=== PATIENT | male | born 1950 | race Caucasian/White ===

== ENCOUNTER 2017-08-05 15:31 | Inpatient (IN) | payer OTHER ==
[2017-08-05] VITALS (7 sets, daily range): BP systolic 143–171; BP diastolic 77–107; PULSE 74–90; TEMP 36.7–37; O2SAT 91–96; Ht 172.7 cm; Wt 95.3 kg
[~2017-08-05] VITALS: Ht 172.7 cm; Wt 95.3 kg
[~2017-08-05 15:31] MED LIST: ALL180 PO; ASPI325T45 PO; CALC1CAP36 PO; CALCTAB76 PO; CRG25 PO; DILT1CAP15 PO; EPLE25TA3 PO; ISOS30TA13 PO; LPT10 PO; LSN40 PO; LSX40 PO; MAGN400T6 PO; MULT-506 PO; POLY335019 PO
[2017-08-05 17:20] LABS: BASO % 0.5 %; BASO ABS # 0.03 K/uL (0-0.2); EOS % 3.1 %; EOS ABS # 0.18 K/uL (0-0.5); HEMATOCRIT 23.7 % (42-52); HEMOGLOBIN 7.1 g/dL (14.0-18.0); IG# 0.01 K/uL (0.00-0.02); LYMPH % 14.4 %; LYMPH ABS # 0.84 K/uL (1.2-3.4); MEAN CELL VOLUME 90.1 fL (80-100); MEAN PLATELET VOLUME 9.9 fL (7.4-10.4); MONO % 7.2 %; MONO ABS # 0.42 K/uL (0.11-0.59); NEUT % 74.6 %; NEUT ABS # 4.34 K/uL (1.4-6.5); PLATELET COUNT 180 K/uL (130-400); RED CELL DISTRIBUTION WIDTH CV 17.6 % (11.5-14.5); RED CELL DISTRIBUTION WIDTH SD 57.7 fL (36.4-46.3); WHITE BLOOD COUNT 5.82 K/uL (4.8-10.8)
--- NOTE | 2017-08-05 17:27 | DIAGNOSTIC IMAGING REPORT ---
ABDOMEN 2 VIEWS CLINICAL HISTORY: 66 years-old Male presenting with abd distention eval for obstruction. TECHNIQUE: Single supine view of the abdomen was obtained. COMPARISON: 08/07/2010. FINDINGS: Nonobstructive bowel gas pattern. No gross pneumoperitoneum. Allowing for bowel gas and stool, punctate calcifications likely represents a right renal calculi. Degenerative changes of the spine. Lung bases clear. IMPRESSION: 1. No evidence of obstruction or gross free air. 2. Right nephrolithiasis. Electronically signed by: Kaleb Corona M.D. 08/05/2017 5:26 PM Dictated Date/Time: 08/05/2017 5:24 PM
--- NOTE | 2017-08-05 17:29 | DIAGNOSTIC IMAGING REPORT ---
CHEST 2 VIEWS ROUTINE CLINICAL HISTORY: 66 years-old Male presenting with cough eval for pna. TECHNIQUE: PA and lateral views of the chest were obtained. COMPARISON: 07/15/2011. FINDINGS: Atherosclerosis of aortic arch. Cardiac silhouette enlarged. Pulmonary vascular prominence. Vague perihilar linear opacities. No other focal opacity. No pleural effusion or pneumothorax. Degenerative changes of the thoracic spine. Upper abdomen normal. IMPRESSION: 1. Cardiomegaly with volume overload and congestive change. No collette pulmonary edema. No focal consolidation to suggest pneumonia. Electronically signed by: Kaleb Corona M.D. 08/05/2017 5:27 PM Dictated Date/Time: 08/05/2017 5:26 PM
[2017-08-05 17:36] LABS: ALBUMIN 3.4 gm/dl (3.4-5.0); ALT/SGPT 23 U/L (12-78); AST/SGOT 20 U/L (15-37); BLOOD UREA NITROGEN 28 mg/dl (7-18); CALCIUM 8.5 mg/dl (8.5-10.1); CARBON DIOXIDE 23 mmol/L (21-32); CREATININE 2.64 mg/dl (0.60-1.40); GLUCOSE 95 mg/dl (70-99); POTASSIUM 3.8 mmol/L (3.5-5.1); SODIUM 140 mmol/L (136-145)
[2017-08-05 17:39] LABS: INR 1.1 (0.9-1.1); PTT PATIENT 25.3 SECONDS (21.0-31.0)
[2017-08-05 17:40] LABS: ALKALINE PHOSPHATASE 83 U/L (45-117); TOTAL PROTEIN 7.4 gm/dl (6.4-8.2)
[2017-08-05] MEDS ORDERED: FINA5TAB PO (17:49)
[2017-08-05] MEDS ORDERED: FLUT0.15 NAE (17:49)
[2017-08-05] MEDS ORDERED: ISOS30TA3 PO (17:49)
[2017-08-05] MEDS ORDERED: ACETAMINOPHEN 325 MG TAB PO PRN (19:30)
[2017-08-05] MEDS ORDERED: NITROGLYCERIN 0.4 MG SL PER TAB CHARGE SL PRN (19:30)
[2017-08-05] MEDS ORDERED: MAGNESIUM HYDROXIDE SUSP 30 ML UDC PO PRN (19:30)
[2017-08-05] MEDS ORDERED: FEXOFENADINE HCL 180 MG TAB PO PRN (20:00)
--- NOTE | 2017-08-05 20:33 | History and Physical ---
History & Physical Date & Time of Service: Aug 05, 2017 at 20:00 Chief Complaint: Shortness Of Breath Primary Care Physician: Kianna Trujillo M.D. (MEDICAL) History of Present Illness Source: patient, clinic records, hospital records Pt is 66 y/o M with PMH chronic A. fib not on Coumadin, HTN, cardiomyopathy, CHF , pulmonary hypertension, CAD, dyslipidemia, CKD IV presented to ER referred for anemia. Hemoglobin 7. Patient reports shortness of breath for the past 3 weeks. Denies any worsening shortness of breath with exertion. Patient feels shortness of breath started 3 weeks ago when he noticed distention of his abdomen and was having some constipation. Patient reports followed up with PCP and took Miralax for 2 weeks and has since been having daily bowel movements that are soft and he reports that the abdominal distention and firmness has resolved. Denies any abdominal pain. Patient also complains of nonproductive cough for the past 3 weeks. Chronically uses 2 pillows denies any worsening orthopnea, denies PND or lower extremity edema.Patient reports every winter has increased congestion and notices blood mixed in with mucus when blowing nose. Patient states this winter has noticed more blood in mucus when he blows his nose only denies other epistaxis. Patient denies history of GI bleeding or gastric ulcers in the past. Patient reports history of colonoscopy greater than 15 years ago which she reports was "normal". Denies melena, hematochezia. Denies fever/chills, diaphoresis, N/V/D, WEBER, dizziness, syncope, vision changes , neck pain, CP, palpitations, hemoptysis, indigestion, sore throat, choking, otalgia, paresthesias, weakness, extremity weakness, extremity edema, rashes, urinary symptoms. History echo 10/30: Atrial fibrillation, normal LV chamber size with mild concentric LVH. Normal LV systolic function without regional wall motion abnormality. EF: 56%. Mild tricuspid regurgitation. Moderate left atrial enlargement. 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 (3) Atrial fibrillation Status: Chronic (4) Bimalleolar fracture Status: Resolved (5) Cardiomyopathy Status: Chronic (6) CHF (congestive heart failure) Status: Resolved (7) CKD (chronic kidney disease), stage IV Status: Chronic (8) Dehydration Status: Resolved (9) Dislocation of right ankle joint Status: Resolved (10) Dyslipidemia Status: Chronic (11) HTN (hypertension) Status: Chronic (12) Hypertension Status: Resolved (13) Kidney stones Status: Chronic (14) Pulmonary hypertension Status: Chronic (15) Renal insufficiency Status: Resolved Surgical Problems: (1) Hx of cardiac cath Permanent Comment: 2011-moderate ASCVD with diffuse atherosclerosis of all vasculature with notable narrowing of 60-70% within the large ramus intermedius , diffuse disease within a nondominant small right and in sequential RCA and a 40% narrowing of the mid LAD with diffuse luminal irregularities in its apical segment. Moderately severe pulmonary hypertension observed. Status: Resolved Family History Cancer Diabetes mellitus Hypertension Social History Smoking Status: Former Smoker Smokeless Tobacco Use: No Alcohol Use: none Drug Use: none Marital Status: single Housing status: lives with family Occupational Status: employed Immunizations History of Influenza Vaccine: Yes Influenza Vaccine Date: Jun 12, 2011 History of Tetanus Vaccine?: Yes Tetanus Immunization Date: Jun 12, 2011 History of Pneumococcal: Yes Pneumococcal Date: Jun 12, 2011 History of Hepatitis B Vaccine: Unknown Allergies Coded Allergies: Oxycodone (Verified Allergy, Intermediate, HIVES, 02/06/15) Home Medications Scheduled Aspirin (Aspirin), 162.5 MG PO QPM Atorvastatin (Lipitor), 10 MG PO DAILY Calcitriol (Calcitriol), 1 TAB PO DAILY Calcium Carbonate-Vitamin D (Calcium 500+D), 1 TAB PO QPM Carvedilol (Carvedilol), 25 MG PO BID Diltiazem Hcl Coated Beads (Diltiazem Hcl Er), 360 MG PO DAILY Eplerenone (Eplerenone), 12.5 MG PO DAILY Finasteride (Proscar), 5 MG PO DAILY Fluticasone Propionate (Nasal) (Flonase Allergy Relief), 2 SPRAYS LAURENCE DAILY Furosemide (Furosemide), 40 MG PO DAILY Isosorbide Mononitrate Ext Rel (Imdur Ext Rel), 30 MG PO QAM Lisinopril (Lisinopril), 40 MG PO DAILY Magnesium Oxide (Mag-Ox), 400 MG PO QPM Multivitamin (Multivitamin), 1 TAB PO QPM Scheduled PRN Fexofenadine HCl (Fexofenadine HCl), 180 MG PO DAILY PRN for ALLERGIES Review of Systems See HPI for pertinent positives & negatives. All other systems reviewed and were otherwise negative Physical Exam Vital Signs Date Time Temp Pulse Resp B/P (MAP) Pulse Ox O2 Delivery O2 Flow Rate FiO2 08/05/17 19:45 78 08/05/17 19:35 36.9 78 18 156/98 94 08/05/17 19:20 36.7 90 18 158/97 94 08/05/17 18:08 78 16 143/99 95 Room Air 08/05/17 15:36 36.6 88 20 128/64 94 General Appearance: WD/WN, no apparent distress Head: normocephalic, atraumatic Eyes: normal inspection, PERRL, EOMI, sclerae normal, + pertinent finding ( pale conjucntiva) ENT: hearing grossly normal, pharynx normal, + pertinent finding (Mucous membranes moist) Neck: supple, no JVD, trachea midline Respiratory/Chest: lungs clear, normal breath sounds, no respiratory distress Cardiovascular: no murmur, + irregularly irregular (Rate 80s) Abdomen/GI: normal bowel sounds, non tender, soft Extremities/Musculoskelatal: normal inspection, no calf tenderness, normal capillary refill, no pedal edema, normal range of motion, non-tender Neurologic/Psych: alert, normal mood/affect, oriented x 3 Skin: normal color, warm/dry Diagnostics Laboratory Results Results Past 24 Hours Test 08/05/17 16:59 08/05/17 18:50 08/05/17 19:42 Range/Units White Blood Count 5.82 4.8-10.8 K/uL Red Blood Count 2.63 4.7-6.1 M/uL Hemoglobin 7.1 14.0-18.0 g/dL Hematocrit 23.7 42-52 % Mean Corpuscular Volume 90.1 80-100 fL Mean Corpuscular Hemoglobin 27.0 25-34 pg Mean Corpuscular Hemoglobin Concent 30.0 32-36 g/dl Platelet Count 180 130-400 K/uL Mean Platelet Volume 9.9 7.4-10.4 fL Neutrophils (%) (Auto) 74.6 % Lymphocytes (%) (Auto) 14.4 % Monocytes (%) (Auto) 7.2 % Eosinophils (%) (Auto) 3.1 % Basophils (%) (Auto) 0.5 % Neutrophils # (Auto) 4.34 1.4-6.5 K/uL Lymphocytes # (Auto) 0.84 1.2-3.4 K/uL Monocytes # (Auto) 0.42 0.11-0.59 K/uL Eosinophils # (Auto) 0.18 0-0.5 K/uL Basophils # (Auto) 0.03 0-0.2 K/uL RDW Standard Deviation 57.7 36.4-46.3 fL RDW Coefficient of Variation 17.6 11.5-14.5 % Immature Granulocyte % (Auto) 0.2 % Immature Granulocyte # (Auto) 0.01 0.00-0.02 K/uL Polychromasia 1+ Tear Drop Cells 1+ Ovalocytes 1+ Prothrombin Time 11.3 9.0-12.0 SECONDS Prothromb Time International Ratio 1.1 0.9-1.1 Activated Partial Thromboplast Time 25.3 21.0-31.0 SECONDS Partial Thromboplastin Ratio 1.0 Sodium Level 140 136-145 mmol/L Potassium Level 3.8 3.5-5.1 mmol/L Chloride Level 108 98-107 mmol/L Carbon Dioxide Level 23 21-32 mmol/L Anion Gap 9.0 3-11 mmol/L Blood Urea Nitrogen 28 7-18 mg/dl Creatinine 2.64 0.60-1.40 mg/dl Est Creatinine Clear Calc Drug Dose 31.9 ml/min Estimated GFR () 28.0 Estimated GFR (Non- 24.1 BUN/Creatinine Ratio 10.7 10-20 Random Glucose 95 70-99 mg/dl Calcium Level 8.5 8.5-10.1 mg/dl Total Bilirubin 1.0 0.2-1 mg/dl Direct Bilirubin 0.3 0-0.2 mg/dl Aspartate Amino Transf (AST/SGOT) 20 15-37 U/L Alanine Aminotransferase (ALT/SGPT) 23 12-78 U/L Alkaline Phosphatase 83 45-117 U/L Troponin I < 0.015 0-0.045 ng/ml Total Protein 7.4 6.4-8.2 gm/dl Albumin 3.4 3.4-5.0 gm/dl Urine Color YELLOW Urine Appearance CLEAR CLEAR Urine pH 7.5 4.5-7.5 Urine Specific [place] 1.013 1.000-1.030 Urine Protein 2+ NEG Urine Glucose (UA) NEG NEG Urine Ketones NEG NEG Urine Occult Blood NEG NEG Urine Nitrite NEG NEG Urine Bilirubin NEG NEG Urine Urobilinogen NEG NEG Urine Leukocyte Esterase NEG NEG Urine WBC (Auto) 1-5 0-5 /hpf Urine RBC (Auto) 0-4 0-4 /hpf Urine Hyaline Casts (Auto) 1-5 0-5 /lpf Urine Epithelial Cells (Auto) 0-5 0-5 /lpf Urine Bacteria (Auto) NEG NEG Diagnostic Radiology CXR: IMPRESSION: 1. Cardiomegaly with volume overload and congestive change. No collette pulmonary edema. No focal consolidation to suggest pneumonia. ABD x-ray: IMPRESSION: 1. No evidence of obstruction or gross free air. 2. Right nephrolithiasis. EKG EKG: atrial fibrillation rate 77 Impression Assessment and Plan SYMPTOMATIC ANEMIA Pt c/o SOB x 3 weeks. Hgb: 7 , was 11 and 01/2017. Denies hematochezia or melena or hematemesis.Reports some blood noted to mucous with blowing nose. No active bleeding. Heme positive stool and ER -Transfuse 1 unit PRBC -Repeat H&H in 6 hours -Iron studies added -Monitor H&H -GI consult CHRONIC ATRIAL FIBRILLATION Rate controlled in 80's. Not on Coumadin. Denies chest pain or palpitations. -continue diltiazem and carvedilol CAD/CARDIOMYOPATHY Denies chest pain. Negative troponin. -Continue statin, beta-sylvain, imdur -Hold aspirin HX CHF: Patient appears euvolemic at this time. No LE edema, no rales auscultated. -Continue Lasix CKD IV Cr: 2.6 which is ~baseline -monitor renal functions -avoid nephrotoxic agents when possible HTN: Stable -Continue carvedilol, diltiazem, lisinopril, Lasix, eplerenone DYSLIPIDEMIA: -Continue statin DVT Prophylaxis -SCDs secondary to anemia Disposition admit tele Full Code as per discussion with pt Follows with Dr Trujillo for routine care Pt was seen with Dr Nesbitt. See addendum Dr. Nesbitt, attending physician addendum I have seen and examined the patient with DIANE Aranda and agree with the assessment and plan as above and would like to comment that this is a 66 year old M is a patient with anemia and symptoms of shortness of breath primarily with walking up the stairs. On exam patient is in no acute distress and breathing on room air, is oriented, and not in pain. He reports periodic nasal epistaxis with the cold winter air but never a profuse nose bleed. Denies vomiting blood, blood in urine, blood in stool. ED report of FOBT positive however. Will repeat FOBT test. Patient's history not suggestive of an acute bleed. He has CKD stage IV disease and symptomatic anemia may be due to the poor renal function. Will add on iron studies prior to the labs that were drawn before the patient had received the 1 unit PRBC by the ED provider. Will recheck CBC as patient is to be s/p 1 total unit of PRBC and monitor the patient overnight. Will request GI consult for positive FOBT and anemia. Resuscitation Status Full code VTE Prophylaxis Will order VTE Prophylaxis: Yes Additional Copies To Kianna Trujillo M.D. (MEDICAL)
[2017-08-05] MEDS: MULTIVITAMIN TAB PO SCH (22:24)
[2017-08-05] MEDS: MAGNESIUM OXIDE 400 MG TAB PO SCH (22:24)
[2017-08-05] MEDS: CARVEDILOL 25 MG TAB PO SCH (22:24)
[2017-08-05] MEDS: CALCIUM 600MG + VIT D 400 IU TAB PO SCH (22:25)
--- NOTE | 2017-08-05 23:26 | EMERGENCY ROOM VISIT NOTE ---
History Report prepared by Ines: Jhonny Tran Under the Supervision of: Dr. Saroj Aggarwal M.D. 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 The patient was seen at his nephrologists at [facility] in [place] for a checkup. They did a laboratory work up and took a stool sample. He was informed to come to the ED for low hemoglobin. He has not received the results on his stool sample. He states that he has been constipated for three weeks. He was seen by his PCP, Dr. Trujillo three weeks ago due to abdominal distension and constipation. He states that his abdomen became distended and that he could not pass any stools, so his PCP prescribed Miralax. He states that he has been taking the Miralax for two weeks. He denies any abdominal pain. He notes that he has been able to pass stools over the last two weeks, though they have been irregular. He denies any bloody stools. He notes that his abdomen is becoming smaller as he is able to pass stools. He states that he developed shortness of breath three weeks ago and a cough one week ago. He notes the cough is nonproductive. He states that his PCP told him that "during the winter, the urine does not fully drain and it can collect and hardened in his abdomen causing shortness of breath." He denies any chest pain. He notes congestion and at every winter he ends up with a bloody nose. He notes that his nose had been bleeding intermittently over the last three weeks. He states the nose bleeds resolved after he took Tylenol. He denies any fever or vomiting. He states that he was on Coumadin for a "double heart beat" But is no longer on blood thinners other than aspirin. 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 He denies any bloody stools. Review of Systems See HPI for pertinent positives & negatives. A total of 10 systems reviewed and were otherwise negative. Past Medical & Surgical Medical Problems: (1) ANCA-positive vasculitis (2) Anemia (3) arterial vasculitis (4) Atrial fibrillation (5) Bimalleolar fracture (6) Cardiomyopathy (7) CHF (congestive heart failure) (8) CKD (chronic kidney disease), stage IV (9) Dehydration (10) Dislocation of right ankle joint (11) Dyslipidemia (12) HTN (hypertension) (13) Hypertension (14) Kidney stones (15) Pulmonary hypertension (16) Renal insufficiency (17) SOB (shortness of breath) Surgical Problems: (1) Hx of cardiac cath Family History Cancer Social History Smoking Status: Former Smoker Alcohol Use: none Drug Use: none Marital Status: single Housing Status: lives with family Occupation Status: employed Current/Historical Medications Scheduled Aspirin (Aspirin), 162.5 MG PO QPM Atorvastatin (Lipitor), 10 MG PO DAILY Calcitriol (Calcitriol), 1 TAB PO DAILY Calcium Carbonate-Vitamin D (Calcium 500+D), 1 TAB PO QPM Carvedilol (Carvedilol), 25 MG PO BID Diltiazem Hcl Coated Beads (Diltiazem Hcl Er), 360 MG PO DAILY Eplerenone (Eplerenone), 12.5 MG PO DAILY Finasteride (Proscar), 5 MG PO DAILY Fluticasone Propionate (Nasal) (Flonase Allergy Relief), 2 SPRAYS LAURENCE DAILY Furosemide (Furosemide), 40 MG PO DAILY Isosorbide Mononitrate Ext Rel (Imdur Ext Rel), 30 MG PO QAM Lisinopril (Lisinopril), 40 MG PO DAILY Magnesium Oxide (Mag-Ox), 400 MG PO QPM Multivitamin (Multivitamin), 1 TAB PO QPM Scheduled PRN Fexofenadine HCl (Fexofenadine HCl), 180 MG PO DAILY PRN for ALLERGIES Allergies Coded Allergies: Oxycodone (Verified Allergy, Intermediate, HIVES, 02/06/15) Physical Exam Vital Signs Date Time Temp Pulse Resp B/P (MAP) Pulse Ox O2 Delivery O2 Flow Rate FiO2 08/05/17 19:20 36.7 90 18 158/97 94 08/05/17 18:08 78 16 143/99 95 Room Air 08/05/17 15:36 36.6 88 20 128/64 94 Physical Exam Constitutional: Vital signs reviewed. Eyes: Pupils are equal round reactive to light. Conjunctiva are noninjected. ENT: Pharynx is clear without erythema or exudate. Mucous membranes are moist. Neck supple without meningeal signs. Respiratory: Clear to auscultation bilaterally. Breath sounds are equal bilaterally. Cardiovascular: Irregularly irregular rhythm. Normal rate. No rubs or gallops. GI: Soft, nondistended and nontender. Bowel sounds are present. Rectal: Guaiac positive, no melena or gross blood. Musculoskeletal: No peripheral edema. No lower extremity tenderness. Integumentary: No cyanosis. Pale. Neurological: The patient is awake and alert. No focal deficits. Psychiatric: Normal affect. Medical Decision & Procedures ER Provider Diagnostic Interpretation: Radiology results as stated below per my review and the radiologist's interpretation: CHEST 2 VIEWS ROUTINE CLINICAL HISTORY: 66 years-old Male presenting with cough eval for pna. TECHNIQUE: PA and lateral views of the chest were obtained. COMPARISON: 07/15/2011. FINDINGS: Atherosclerosis of aortic arch. Cardiac silhouette enlarged. Pulmonary vascular prominence. Vague perihilar linear opacities. No other focal opacity. No pleural effusion or pneumothorax. Degenerative changes of the thoracic spine. Upper abdomen normal. IMPRESSION: 1. Cardiomegaly with volume overload and congestive change. No collette pulmonary edema. No focal consolidation to suggest pneumonia. Electronically signed by: Kaleb Corona M.D. 08/05/2017 5:27 PM Dictated Date/Time: 08/05/2017 5:26 PM ABDOMEN 2 VIEWS CLINICAL HISTORY: 66 years-old Male presenting with abd distention eval for obstruction. TECHNIQUE: Single supine view of the abdomen was obtained. COMPARISON: 08/07/2010. FINDINGS: Nonobstructive bowel gas pattern. No gross pneumoperitoneum. Allowing for bowel gas and stool, punctate calcifications likely represents a right renal calculi. Degenerative changes of the spine. Lung bases clear. IMPRESSION: 1. No evidence of obstruction or gross free air. 2. Right nephrolithiasis. Electronically signed by: Kaleb Corona M.D. 08/05/2017 5:26 PM Dictated Date/Time: 08/05/2017 5:24 PM Laboratory Results 08/05/17 16:59 Red Blood Count 2.63, Mean Corpuscular Volume 90.1, Mean Corpuscular Hemoglobin 27.0, Mean Corpuscular Hemoglobin Concent 30.0, Mean Platelet Volume 9.9, Neutrophils (%) (Auto) 74.6, Lymphocytes (%) (Auto) 14.4, Monocytes (%) (Auto) 7.2, Eosinophils (%) (Auto) 3.1, Basophils (%) (Auto) 0.5, Neutrophils # (Auto) 4.34, Lymphocytes # (Auto) 0.84, Monocytes # (Auto) 0.42, Eosinophils # (Auto) 0.18, Basophils # (Auto) 0.03 08/05/17 16:59 Test 08/05/17 16:59 08/05/17 17:12 08/05/17 18:50 White Blood Count 5.82 K/uL (4.8-10.8) Red Blood Count 2.63 M/uL (4.7-6.1) Hemoglobin 7.1 g/dL (14.0-18.0) Hematocrit 23.7 % (42-52) Mean Corpuscular Volume 90.1 fL (80-100) Mean Corpuscular Hemoglobin 27.0 pg (25-34) Mean Corpuscular Hemoglobin Concent 30.0 g/dl (32-36) Platelet Count 180 K/uL (130-400) Mean Platelet Volume 9.9 fL (7.4-10.4) Neutrophils (%) (Auto) 74.6 % Lymphocytes (%) (Auto) 14.4 % Monocytes (%) (Auto) 7.2 % Eosinophils (%) (Auto) 3.1 % Basophils (%) (Auto) 0.5 % Neutrophils # (Auto) 4.34 K/uL (1.4-6.5) Lymphocytes # (Auto) 0.84 K/uL (1.2-3.4) Monocytes # (Auto) 0.42 K/uL (0.11-0.59) Eosinophils # (Auto) 0.18 K/uL (0-0.5) Basophils # (Auto) 0.03 K/uL (0-0.2) RDW Standard Deviation 57.7 fL (36.4-46.3) RDW Coefficient of Variation 17.6 % (11.5-14.5) Immature Granulocyte % (Auto) 0.2 % Immature Granulocyte # (Auto) 0.01 K/uL (0.00-0.02) Polychromasia 1+ Tear Drop Cells 1+ Ovalocytes 1+ Prothrombin Time 11.3 SECONDS (9.0-12.0) Prothromb Time International Ratio 1.1 (0.9-1.1) Activated Partial Thromboplast Time 25.3 SECONDS (21.0-31.0) Partial Thromboplastin Ratio 1.0 Anion Gap 9.0 mmol/L (3-11) Est Creatinine Clear Calc Drug Dose 31.9 ml/min Estimated GFR () 28.0 Estimated GFR (Non- 24.1 BUN/Creatinine Ratio 10.7 (10-20) Calcium Level 8.5 mg/dl (8.5-10.1) Total Bilirubin 1.0 mg/dl (0.2-1) Direct Bilirubin 0.3 mg/dl (0-0.2) Aspartate Amino Transf (AST/SGOT) 20 U/L (15-37) Alanine Aminotransferase (ALT/SGPT) 23 U/L (12-78) Alkaline Phosphatase 83 U/L (45-117) Troponin I < 0.015 ng/ml (0-0.045) Total Protein 7.4 gm/dl (6.4-8.2) Albumin 3.4 gm/dl (3.4-5.0) Total Iron Binding Capacity 353 mcg/dl (250-450) Ferritin 25.1 ng/ml (8.0-388.0) Urine Color YELLOW Urine Appearance CLEAR (CLEAR) Urine pH 7.5 (4.5-7.5) Urine Specific [place] 1.013 (1.000-1.030) Urine Protein 2+ (NEG) Urine Glucose (UA) NEG (NEG) Urine Ketones NEG (NEG) Urine Occult Blood NEG (NEG) Urine Nitrite NEG (NEG) Urine Bilirubin NEG (NEG) Urine Urobilinogen NEG (NEG) Urine Leukocyte Esterase NEG (NEG) Urine WBC (Auto) 1-5 /hpf (0-5) Urine RBC (Auto) 0-4 /hpf (0-4) Urine Hyaline Casts (Auto) 1-5 /lpf (0-5) Urine Epithelial Cells (Auto) 0-5 /lpf (0-5) Urine Bacteria (Auto) NEG (NEG) Laboratory results as reviewed by me. ECG Per My Interpretation Indication: SOB/dyspnea Rate (beats per minute): 77 Rhythm: atrial fibrillation Findings: T-wave inversion (Lateral), other (No ST elevations; no PVCs) ED Course 1630: The patient was evaluated in room C2B. A complete history and physical exam was performed. 1735: I reassessed the patient at this time. I performed a rectal exam. Please see exam note. I obtained verbal consent for blood transfusion. 1805: I spoke with Guillermo Martin. We discussed the patient' s case. [facility]. Medical Decision This is a 66-year-old male who presents with shortness of breath and low hemoglobin. Differential diagnosis includes symptomatic anemia, GI bleed, coagulopathy, pneumonia, ileus, constipation, bowel obstruction. I did perform a limited focused review of portions of the patient's old chart on the electronic medical record. The patient has had no recent pertinent visits to this hospital. I did evaluate the patient as noted above. IV access was established. The patient was placed on a continuous front desk monitor. I did order and personally review the patient's 12-lead EKG and chest x-ray as described above. I did order and review the patient's blood work as noted in the electronic medical record. His hemoglobin is 7.1. I did perform a rectal examination which showed guaiac positive light brown stool. He does state he had nosebleeds but he does not have any melanotic stool. He has had constipation requiring MiraLAX so I do not suspect increased transit time. I did order transfusion of 2 units of packed RBCs after obtaining consent from the patient. I did discuss case with the hospitalist and registered nurse hh case manager. Medication Reconcilliation Current Medication List: was personally reviewed by me Blood Pressure Screening Patient's blood pressure: Normal blood pressure Consults Time Called: 1800 Consulting Physician: Guillermo Martin Returned Call: 1805 I spoke with Guillermo Martin. We discussed the patient's case. [facility]. Impression Primary Impression: Symptomatic anemia Additional Impressions: CKD (chronic kidney disease) GI bleed Scribe Attestation The scribe's documentation has been prepared under my direct and personally reviewed by me in its entirety. I confirm that the note above accurately reflects all work, treatment, procedures, and medical decision making performed by me. Departure Information Dispostion Being Evaluated By Hospitalist Referrals Kianna Trujillo M.D. (MEDICAL) (PCP) Patient Instructions My [facility] Problem Qualifiers Additional Impressions: CKD (chronic kidney disease) Chronic kidney disease stage: unspecified stage Qualified Codes: N18.9 - Chronic kidney disease, unspecified GI bleed GI bleed type/associated pathology: unspecified gastrointestinal hemorrhage type Qualified Codes: K92.2 - Gastrointestinal hemorrhage, unspecified
[2017-08-06 01:25] LABS: HEMATOCRIT 26.5 % (42-52); HEMOGLOBIN 8.3 g/dL (14.0-18.0)
[2017-08-06 04:14] VITALS: BP 149/73; PULSE 77; TEMP 36.9; O2SAT 91
--- NOTE | 2017-08-06 06:06 | DIAGNOSTIC IMAGING REPORT ---
HEAD WITHOUT CONTRAST (CT) CT DOSE: 614.27 mGy.cm HISTORY: Mental status change confusion. rule out stroke TECHNIQUE: Multiaxial CT images of the head were performed without the use of intravenous contrast. A dose lowering technique was utilized adhering to the principles of ALARA. Comparison: 06/16/2010. Findings: The paranasal sinuses and mastoid air cells are clear. The calvarium and skull base are intact. The ventricles and sulci are within normal limits. There is no mass, hematoma, midline shift, or acute infarct. Moderate chronic small vessel change throughout both cerebral hemispheres. 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 No evidence for acute intracranial hemorrhage. Impression: Chronic small vessel change. No acute intracranial abnormality. The above report was generated using voice recognition software. It may contain grammatical, syntax or spelling errors. Electronically signed by: Donal Mackey M.D. 08/06/2017 6:05 AM Dictated Date/Time: 08/06/2017 6:03 AM
[2017-08-06 07:14] VITALS: BP 159/96; PULSE 80; TEMP 37; O2SAT 92
[2017-08-06 07:30] LABS: BASO % 0.7 %; BASO ABS # 0.04 K/uL (0-0.2); EOS % 2.6 %; EOS ABS # 0.16 K/uL (0-0.5); HEMATOCRIT 25.7 % (42-52); IG# 0.01 K/uL (0.00-0.02); LYMPH % 12.5 %; LYMPH ABS # 0.76 K/uL (1.2-3.4); MEAN CELL VOLUME 88.9 fL (80-100); MEAN CORPUSCULAR HEMOGLOBIN 27.7 pg (25-34); MEAN CORPUSCULAR HGB CONC 31.1 g/dl (32-36); MEAN PLATELET VOLUME 9.6 fL (7.4-10.4); MONO % 8.9 %; MONO ABS # 0.54 K/uL (0.11-0.59); NEUT % 75.1 %; NEUT ABS # 4.59 K/uL (1.4-6.5); PLATELET COUNT 159 K/uL (130-400); RED CELL DISTRIBUTION WIDTH CV 17.3 % (11.5-14.5); RED CELL DISTRIBUTION WIDTH SD 55.7 fL (36.4-46.3)
[2017-08-06] MEDS: ATORVASTATIN 10 MG TAB PO SCH (07:51)
[2017-08-06] MEDS: CARVEDILOL 25 MG TAB PO SCH ×2 (07:51→21:58)
[2017-08-06] MEDS: FINASTERIDE 5 MG TAB PO SCH (07:51)
[2017-08-06] MEDS: FUROSEMIDE 40 MG TAB PO SCH (07:51)
[2017-08-06] MEDS: CALCITRIOL 0.25 MCG CAP PO SCH (07:51)
[2017-08-06] MEDS: ISOSORBIDE MONONITRATE 30 MG TABCR PO SCH (07:51)
[2017-08-06] MEDS: DILTIAZEM HCL (TIAzac) 180 MG CAPCR PO SCH (07:51)
[2017-08-06] MEDS: LISINOPRIL 40 MG TAB PO SCH (07:52)
[2017-08-06 08:20] LABS: ALBUMIN 3.2 gm/dl (3.4-5.0); CALCIUM 8.6 mg/dl (8.5-10.1); CREATININE 2.52 mg/dl (0.60-1.40)
[2017-08-06 08:31] LABS: TOTAL PROTEIN 7.3 gm/dl (6.4-8.2)
[2017-08-06] MEDS ORDERED: FLUTICASONE PROPIONATE NA SPR 16 GM BTL NAE PRN (09:00)
[2017-08-06] MEDS ORDERED: CALCITRIOL 0.25 MCG CAP PO SCH (09:00)
--- NOTE | 2017-08-06 10:26 | Gastrointestinal Consultation ---
Gastrointestinal Consultation Date of Consultation: Aug 06, 2017 Attending Physician: Dr. Nesbitt Consulting Physician: Dr. Mckenna Reason for Consultation: symptomatic anemia History of Present Illness Patient is a 66 year old male with multiple medical problems including h/o AF, CAD, CHF, CKD (cr baseline appears to be in the 2's) admitted wt 2-3 weeks of worsening SOB. On arrival noted to be anemic with hgb of 7 (down form approx 11 6 months ago). Denies any melena or hematochezia. Hemoccult positive stool noted int he ER. No obvious blood. Had a colonoscopy approx 15 years ago which was reportedly normal. No h/o PUD. Denies NSAIDs. Receiving 1 unit of PRBC. Hemodynamically stable. BUN not significantly elevated. Past Medical/Surgical History Medical Problems: (1) CKD (chronic kidney disease) Status: Acute (2) GI bleed Status: Acute (3) Symptomatic anemia Status: Acute Past Medical History: as noted above Past Surgical History: non-contributory Family History Cancer Diabetes mellitus Hypertension Social History Smoking Status: Former Smoker Alcohol Use: none Drug Use: none Marital Status: single Housing Status: lives with family Occupation Status: employed Allergies Coded Allergies: Oxycodone (Verified Allergy, Intermediate, HIVES, 02/06/15) Current Medications Home Meds and Scripts Medications Dose Route/Sig Max Daily Dose Days Date Category Dose Instructions Proscar (Finasteride) 5 Mg Tab 5 Mg PO DAILY 08/05/17 Reported Imdur Ext Rel (Isosorbide Mononitrate) 30 Mg Ertab 30 Mg PO QAM 08/05/17 Reported Flonase Allergy Relief (Fluticasone Propionate (Nasal)) 50 Mcg/Act Spr 2 Sprays LAURENCE DAILY 08/05/17 Reported Aspirin 325 Mg Tab 162.5 Mg PO QPM 01/22/15 Reported Calcium 500+D (Calcium Carbonate-Vitamin D) 1 Tab Tab 1 Tab PO QPM 04/17/14 Reported Diltiazem Hcl Er (Diltiazem Hcl Coated Beads) 360 Mg Cap 360 Mg PO DAILY 04/17/14 Reported Eplerenone 25 Mg Tab 12.5 Mg PO DAILY 04/17/14 Reported Fexofenadine HCl 180 Mg Tab 180 Mg PO DAILY PRN 04/17/14 Reported Carvedilol 25 Mg Tab 25 Mg PO BID 04/17/14 Reported take with food Lipitor (Atorvastatin Calcium) 10 Mg Tab 10 Mg PO DAILY 04/17/14 Reported Furosemide 40 Mg Tab 40 Mg PO DAILY 04/17/14 Reported Calcitriol 0.25 Mcg Cap 1 Tab PO DAILY 04/17/14 Reported Lisinopril 40 Mg Tab 40 Mg PO DAILY 04/17/14 Reported Multivitamin (Multivitamins) Tab 1 Tab PO QPM 04/17/14 Reported Mag-Ox (Magnesium Oxide) 400 Mg Tab 400 Mg PO QPM 04/17/14 Reported Review of Systems 12 systems reviewed and negative except as noted Physical Exam Date Time Temp Pulse Resp B/P (MAP) Pulse Ox O2 Delivery O2 Flow Rate FiO2 08/06/17 07:45 Room Air 08/06/17 07:14 37.0 80 20 159/96 (117) 92 Room Air 08/06/17 04:14 36.9 77 20 149/73 (98) 91 Room Air 08/06/17 04:00 Room Air 08/06/17 00:00 Room Air 08/05/17 23:59 36.9 74 18 143/77 (99) 91 Room Air 08/05/17 22:45 37.0 83 18 171/80 94 Room Air 08/05/17 21:25 36.8 78 18 166/107 96 08/05/17 21:24 36.8 78 18 166/107 96 08/05/17 20:57 36.8 77 18 154/92 93 08/05/17 20:00 36.9 81 18 165/98 93 08/05/17 20:00 08/05/17 19:45 78 08/05/17 19:35 36.9 78 18 156/98 94 08/05/17 19:20 36.7 90 18 158/97 94 08/05/17 18:08 78 16 143/99 95 Room Air 08/05/17 15:36 36.6 88 20 128/64 94 General Appearance: WD/WN, no apparent distress Eyes: normal inspection, PERRL ENT: normal ENT inspection, pharynx normal Neck: supple, no JVD Respiratory/Chest: chest non-tender, lungs clear, normal breath sounds Cardiovascular: regular rate, rhythm, + systolic murmur Abdomen: normal bowel sounds, non tender, soft Extremities: normal range of motion, non-tender 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, no motor/sensory deficits, alert, normal mood/affect, oriented x 3 Skin: normal color, no jaundice, warm/dry Laboratory Results Last 24 Hours Test 08/05/17 16:59 08/05/17 17:12 08/05/17 18:50 08/06/17 00:00 White Blood Count 5.82 K/uL Red Blood Count 2.63 M/uL Hemoglobin 7.1 g/dL Hematocrit 23.7 % Mean Corpuscular Volume 90.1 fL Mean Corpuscular Hemoglobin 27.0 pg Mean Corpuscular Hemoglobin Concent 30.0 g/dl Platelet Count 180 K/uL Mean Platelet Volume 9.9 fL Neutrophils (%) (Auto) 74.6 % Lymphocytes (%) (Auto) 14.4 % Monocytes (%) (Auto) 7.2 % Eosinophils (%) (Auto) 3.1 % Basophils (%) (Auto) 0.5 % Neutrophils # (Auto) 4.34 K/uL Lymphocytes # (Auto) 0.84 K/uL Monocytes # (Auto) 0.42 K/uL Eosinophils # (Auto) 0.18 K/uL Basophils # (Auto) 0.03 K/uL RDW Standard Deviation 57.7 fL RDW Coefficient of Variation 17.6 % Immature Granulocyte % (Auto) 0.2 % Immature Granulocyte # (Auto) 0.01 K/uL Polychromasia 1+ Tear Drop Cells 1+ Ovalocytes 1+ Prothrombin Time 11.3 SECONDS Prothromb Time International Ratio 1.1 Activated Partial Thromboplast Time 25.3 SECONDS Partial Thromboplastin Ratio 1.0 Sodium Level 140 mmol/L Potassium Level 3.8 mmol/L Chloride Level 108 mmol/L Carbon Dioxide Level 23 mmol/L Anion Gap 9.0 mmol/L Blood Urea Nitrogen 28 mg/dl Creatinine 2.64 mg/dl Est Creatinine Clear Calc Drug Dose 31.9 ml/min Estimated GFR () 28.0 Estimated GFR (Non- 24.1 BUN/Creatinine Ratio 10.7 Random Glucose 95 mg/dl Calcium Level 8.5 mg/dl Total Bilirubin 1.0 mg/dl Direct Bilirubin 0.3 mg/dl Aspartate Amino Transf (AST/SGOT) 20 U/L Alanine Aminotransferase (ALT/SGPT) 23 U/L Alkaline Phosphatase 83 U/L Troponin I < 0.015 ng/ml Total Protein 7.4 gm/dl Albumin 3.4 gm/dl Total Iron Binding Capacity 353 mcg/dl Ferritin 25.1 ng/ml Urine Color YELLOW Urine Appearance CLEAR Urine pH 7.5 Urine Specific [place] 1.013 Urine Protein 2+ Urine Glucose (UA) NEG Urine Ketones NEG Urine Occult Blood NEG Urine Nitrite NEG Urine Bilirubin NEG Urine Urobilinogen NEG Urine Leukocyte Esterase NEG Urine WBC (Auto) 1-5 /hpf Urine RBC (Auto) 0-4 /hpf Urine Hyaline Casts (Auto) 1-5 /lpf Urine Epithelial Cells (Auto) 0-5 /lpf Urine Bacteria (Auto) NEG Stool Occult Blood NEGATIVE Test 08/06/17 01:02 08/06/17 07:08 Hemoglobin 8.3 g/dL 8.0 g/dL Hematocrit 26.5 % 25.7 % White Blood Count 6.10 K/uL Red Blood Count 2.89 M/uL Mean Corpuscular Volume 88.9 fL Mean Corpuscular Hemoglobin 27.7 pg Mean Corpuscular Hemoglobin Concent 31.1 g/dl Platelet Count 159 K/uL Mean Platelet Volume 9.6 fL Neutrophils (%) (Auto) 75.1 % Lymphocytes (%) (Auto) 12.5 % Monocytes (%) (Auto) 8.9 % Eosinophils (%) (Auto) 2.6 % Basophils (%) (Auto) 0.7 % Neutrophils # (Auto) 4.59 K/uL Lymphocytes # (Auto) 0.76 K/uL Monocytes # (Auto) 0.54 K/uL Eosinophils # (Auto) 0.16 K/uL Basophils # (Auto) 0.04 K/uL RDW Standard Deviation 55.7 fL RDW Coefficient of Variation 17.3 % Immature Granulocyte % (Auto) 0.2 % Immature Granulocyte # (Auto) 0.01 K/uL Tear Drop Cells 1+ Ovalocytes 1+ Sodium Level 140 mmol/L Potassium Level 4.0 mmol/L Chloride Level 109 mmol/L Carbon Dioxide Level 24 mmol/L Anion Gap 7.0 mmol/L Blood Urea Nitrogen 27 mg/dl Creatinine 2.52 mg/dl Est Creatinine Clear Calc Drug Dose 32.9 ml/min Estimated GFR () 29.6 Estimated GFR (Non- 25.5 BUN/Creatinine Ratio 10.8 Random Glucose 92 mg/dl Calcium Level 8.6 mg/dl Total Bilirubin 1.3 mg/dl Aspartate Amino Transf (AST/SGOT) 26 U/L Alanine Aminotransferase (ALT/SGPT) 27 U/L Alkaline Phosphatase 75 U/L Total Protein 7.3 gm/dl Albumin 3.2 gm/dl Globulin 4.1 gm/dl Albumin/Globulin Ratio 0.8 Vitamin B12 Level 663 pg/mL Folate > 24.00 ng/mL Thyroid Stimulating Hormone (TSH) 1.900 uIu/ml Impression Patient is a 66 year old male with CKD as well as CAD, CHF and h/o AF admitted with worsening of chronic anemia. No obvious s/s of GI bleeding. Stool hemoccult positive. He should undergo an EGD and colonoscopy on Tuesday. Ok to allow him to eat today and start clear liquid diet tomorrow AM and prep tomorrow evening. Plan - as noted above. - Clear liquid diet tomorrow. - Please give 4 dulcolax tablets at noon tomorrow. Then 7 packets of miralax in 32 oz gatorade at 3PM and repeat at 3 AM. - EGD and colonoscopy Tuesday. - Follow H/H. - Maximize cardiac status.
[2017-08-06 11:45] VITALS: BP 123/71; PULSE 79; TEMP 36.6; O2SAT 94
[2017-08-06 14:52] VITALS: BP 132/67; PULSE 78; TEMP 36.9; O2SAT 92
--- NOTE | 2017-08-06 17:43 | Progress Note ---
Internal Med Progress Note Date of Service: Aug 06, 2017. Provider Documentation: SUBJECTIVE: resting comfortably afebrile no black stools or obvious blood in stools as per patient hungry and want to eat says he was somewhat disoriented when he woke up in am but feeling ok now no nausea no chest pain or abdominal pain OBJECTIVE: Vital Signs-as noted below Exam: General-alert and oriented. Not in distress ENT-Normal hearing Neck-no neck masses Lungs-cta b/l no wheezing or crackles Heart-S 1 and s2 heard regular no murmurs Abdomen-soft bowel sounds present non tender no distension Extremities-no edema no erythema Neuro-alert and awake moves extremities Lab data as noted below. ASSESSMENT & PLAN: SYMPTOMATIC ANEMIA hb 7.1 on presentation s/p one unit prbc transfused heme positive stools no obvious bleeding hb 8.0 today appreciate Gi inputs plan for egd and colonoscopy on Tuesday Encephalopathy delirium disoriented today morning back to baseline currently ct head negative CHRONIC ATRIAL FIBRILLATION Rate controlled. Not on Coumadin On diltiazem and carvedilol CAD/CARDIOMYOPATHY On statin, beta-sylvain, imdur Holding aspirin Stable HX CHF: stable On Lasix CKD IV Cr: 2.6 which is ~baseline will f/u labs HTN: Stable On carvedilol, diltiazem, lisinopril, Lasix, eplerenone DYSLIPIDEMIA: on statin DVT Prophylaxis SCDs secondary to anemia Disposition Monitor in tele Full Code as per admissions Follows with Dr Trujillo for routine care Vital Signs: Date Time Temp Pulse Resp B/P (MAP) Pulse Ox O2 Delivery O2 Flow Rate FiO2 08/06/17 16:00 Room Air 08/06/17 14:52 36.9 78 20 132/67 (88) 92 Room Air 08/06/17 12:00 Room Air 08/06/17 11:45 36.6 79 18 123/71 (88) 94 Room Air 08/06/17 07:45 Room Air 08/06/17 07:14 37.0 80 20 159/96 (117) 92 Room Air 08/06/17 04:14 36.9 77 20 149/73 (98) 91 Room Air 08/06/17 04:00 Room Air 08/06/17 00:00 Room Air 08/05/17 23:59 36.9 74 18 143/77 (99) 91 Room Air 08/05/17 22:45 37.0 83 18 171/80 94 Room Air 08/05/17 21:25 36.8 78 18 166/107 96 08/05/17 21:24 36.8 78 18 166/107 96 08/05/17 20:57 36.8 77 18 154/92 93 08/05/17 20:00 36.9 81 18 165/98 93 08/05/17 20:00 08/05/17 19:45 78 08/05/17 19:35 36.9 78 18 156/98 94 08/05/17 19:20 36.7 90 18 158/97 94 08/05/17 18:08 78 16 143/99 95 Room Air Lab Results: Results Past 24 Hours Test 08/05/17 18:50 08/06/17 00:00 08/06/17 01:02 08/06/17 07:08 Range/Units Urine Color YELLOW Urine Appearance CLEAR CLEAR Urine pH 7.5 4.5-7.5 Urine Specific [place] 1.013 1.000-1.030 Urine Protein 2+ NEG Urine Glucose (UA) NEG NEG Urine Ketones NEG NEG Urine Occult Blood NEG NEG Urine Nitrite NEG NEG Urine Bilirubin NEG NEG Urine Urobilinogen NEG NEG Urine Leukocyte Esterase NEG NEG Urine WBC (Auto) 1-5 0-5 /hpf Urine RBC (Auto) 0-4 0-4 /hpf Urine Hyaline Casts (Auto) 1-5 0-5 /lpf Urine Epithelial Cells (Auto) 0-5 0-5 /lpf Urine Bacteria (Auto) NEG NEG Stool Occult Blood NEGATIVE NEGATIVE Hemoglobin 8.3 8.0 14.0-18.0 g/dL Hematocrit 26.5 25.7 42-52 % White Blood Count 6.10 4.8-10.8 K/uL Red Blood Count 2.89 4.7-6.1 M/uL Mean Corpuscular Volume 88.9 80-100 fL Mean Corpuscular Hemoglobin 27.7 25-34 pg Mean Corpuscular Hemoglobin Concent 31.1 32-36 g/dl Platelet Count 159 130-400 K/uL Mean Platelet Volume 9.6 7.4-10.4 fL Neutrophils (%) (Auto) 75.1 % Lymphocytes (%) (Auto) 12.5 % Monocytes (%) (Auto) 8.9 % Eosinophils (%) (Auto) 2.6 % Basophils (%) (Auto) 0.7 % Neutrophils # (Auto) 4.59 1.4-6.5 K/uL Lymphocytes # (Auto) 0.76 1.2-3.4 K/uL Monocytes # (Auto) 0.54 0.11-0.59 K/uL Eosinophils # (Auto) 0.16 0-0.5 K/uL Basophils # (Auto) 0.04 0-0.2 K/uL RDW Standard Deviation 55.7 36.4-46.3 fL RDW Coefficient of Variation 17.3 11.5-14.5 % Immature Granulocyte % (Auto) 0.2 % Immature Granulocyte # (Auto) 0.01 0.00-0.02 K/uL Tear Drop Cells 1+ Ovalocytes 1+ Sodium Level 140 136-145 mmol/L Potassium Level 4.0 3.5-5.1 mmol/L Chloride Level 109 98-107 mmol/L Carbon Dioxide Level 24 21-32 mmol/L Anion Gap 7.0 3-11 mmol/L Blood Urea Nitrogen 27 7-18 mg/dl Creatinine 2.52 0.60-1.40 mg/dl Est Creatinine Clear Calc Drug Dose 32.9 ml/min Estimated GFR () 29.6 Estimated GFR (Non- 25.5 BUN/Creatinine Ratio 10.8 10-20 Random Glucose 92 70-99 mg/dl Calcium Level 8.6 8.5-10.1 mg/dl Total Bilirubin 1.3 0.2-1 mg/dl Aspartate Amino Transf (AST/SGOT) 26 15-37 U/L Alanine Aminotransferase (ALT/SGPT) 27 12-78 U/L Alkaline Phosphatase 75 45-117 U/L Total Protein 7.3 6.4-8.2 gm/dl Albumin 3.2 3.4-5.0 gm/dl Globulin 4.1 2.5-4.0 gm/dl Albumin/Globulin Ratio 0.8 0.9-2 Vitamin B12 Level 663 211-911 pg/mL Folate > 24.00 >5.38 ng/mL Thyroid Stimulating Hormone (TSH) 1.900 0.300-4.500 uIu/ml Microbiology Results 08/06/17 Blood Culture, Received Pending 08/06/17 Blood Culture, Received Pending
[2017-08-06 19:00] VITALS: BP 121/66; PULSE 66; TEMP 37.1; O2SAT 95
[2017-08-06] MEDS: CALCIUM 600MG + VIT D 400 IU TAB PO SCH (21:57)
[2017-08-06] MEDS: MULTIVITAMIN TAB PO SCH (21:58)
[2017-08-06] MEDS: MAGNESIUM OXIDE 400 MG TAB PO SCH (21:58)
[2017-08-06 23:40] VITALS: BP 143/76; PULSE 74; TEMP 36.7; O2SAT 94
[2017-08-07 04:21] VITALS: BP 143/76; PULSE 80; TEMP 36.9; O2SAT 96
[2017-08-07 05:26] VITALS: BP 135/77; PULSE 80; TEMP 36.7; O2SAT 95
[2017-08-07] MEDS: ATORVASTATIN 10 MG TAB PO SCH (07:56)
[2017-08-07] MEDS: FINASTERIDE 5 MG TAB PO SCH (07:56)
[2017-08-07] MEDS: FUROSEMIDE 40 MG TAB PO SCH (07:56)
[2017-08-07] MEDS: CALCITRIOL 0.25 MCG CAP PO SCH (07:56)
[2017-08-07] MEDS: CARVEDILOL 25 MG TAB PO SCH ×2 (07:56→21:59)
[2017-08-07] MEDS: ISOSORBIDE MONONITRATE 30 MG TABCR PO SCH (07:56)
[2017-08-07] MEDS: LISINOPRIL 40 MG TAB PO SCH (07:56)
[2017-08-07] MEDS: DILTIAZEM HCL (TIAzac) 180 MG CAPCR PO SCH (07:56)
[2017-08-07] MEDS ORDERED: NURSING VERBAL MED ORDER ONE (08:15)
[2017-08-07 10:00] LABS: BASO % 0.4 %; BASO ABS # 0.02 K/uL (0-0.2); EOS % 2.4 %; EOS ABS # 0.12 K/uL (0-0.5); HEMATOCRIT 26.7 % (42-52); HEMOGLOBIN 8.3 g/dL (14.0-18.0); IG# 0.01 K/uL (0.00-0.02); LYMPH % 13.6 %; LYMPH ABS # 0.69 K/uL (1.2-3.4); MEAN CORPUSCULAR HEMOGLOBIN 27.7 pg (25-34); MEAN CORPUSCULAR HGB CONC 31.1 g/dl (32-36); MEAN PLATELET VOLUME 9.7 fL (7.4-10.4); MONO % 6.7 %; MONO ABS # 0.34 K/uL (0.11-0.59); NEUT % 76.7 %; NEUT ABS # 3.88 K/uL (1.4-6.5); PLATELET COUNT 160 K/uL (130-400); RED CELL DISTRIBUTION WIDTH SD 55.4 fL (36.4-46.3); WHITE BLOOD COUNT 5.06 K/uL (4.8-10.8)
[2017-08-07 10:38] LABS: CREATININE 2.64 mg/dl (0.60-1.40); POTASSIUM 3.8 mmol/L (3.5-5.1)
[2017-08-07 11:41] VITALS: BP 114/67; PULSE 74; TEMP 37.1; O2SAT 93
[2017-08-07] MEDS ORDERED: BISACODYL 5 MG TABEC PO ONE (12:00)
[2017-08-07] MEDS: POLYETHYLENE (MIRALAX) 17 GM PACK PO SCH (14:50)
[2017-08-07 15:26] VITALS: BP 111/70; PULSE 56; TEMP 36.4; O2SAT 95
--- NOTE | 2017-08-07 15:46 | Progress Note ---
Internal Med Progress Note Date of Service: Aug 07, 2017. Provider Documentation: SUBJECTIVE: eating clears denies any bleeding in stools had an episode of epistaxis last night but thinks its old blood afebrile no chest pain or abdominal pain no nausea OBJECTIVE: Vital Signs-as noted below Exam: General-alert and oriented. Not in distress ENT-Normal hearing Neck-no neck masses Lungs-cta b/l no wheezing or crackles Heart-S 1 and s2 heard regular no murmurs Abdomen-soft bowel sounds present non tender no distension Extremities-no edema no erythema Neuro-alert and awake moves extremities Lab data as noted below. ASSESSMENT & PLAN: SYMPTOMATIC ANEMIA Acute blood loss on chronic anemia? hb 7.1 on presentation s/p one unit prbc transfused heme positive stools no obvious bleeding hb 8.3 today appreciate Gi inputs bowel prep today plan for egd and colonoscopy on Tuesday Encephalopathy delirium disoriented today morning back to baseline currently ct head negative CHRONIC ATRIAL FIBRILLATION Rate controlled. Not on Coumadin On diltiazem and carvedilol will monitor Bradycardia when sleeping will monitor if symptomatic will cut back on diltiazem. CAD/CARDIOMYOPATHY On statin, beta-sylvain, imdur Holding aspirin Stable HX chronic diastolic CHF: stable On Lasix CKD IV Cr: 2.6 which is ~baseline will f/u labs HTN: Stable On carvedilol, diltiazem, lisinopril, Lasix, eplerenone DYSLIPIDEMIA: on statin DVT Prophylaxis SCDs secondary to anemia Disposition Monitor in tele Full Code as per admissions Follows with Dr Trujillo for routine care Vital Signs: Date Time Temp Pulse Resp B/P (MAP) Pulse Ox O2 Delivery O2 Flow Rate FiO2 08/08/17 13:47 65 16 93/55 (68) 93 Room Air 08/08/17 12:25 36.5 73 20 108/69 (82) 94 Room Air 08/08/17 11:50 36.6 76 20 108/66 (80) 96 Room Air 08/08/17 11:35 Room Air 08/08/17 07:45 Room Air 08/08/17 07:03 36.4 77 20 151/84 (106) 97 Room Air 08/08/17 04:17 36.5 83 18 118/70 (86) 98 Room Air 08/08/17 04:05 Room Air 08/08/17 00:05 Room Air 08/07/17 23:30 36.3 73 21 114/67 (83) 97 Room Air 08/07/17 20:05 Room Air 08/07/17 19:04 36.4 59 18 107/69 (82) 96 Room Air 08/07/17 16:00 Room Air 08/07/17 15:26 36.4 56 18 111/70 (84) 95 Room Air Lab Results: Results Past 24 Hours Test 08/08/17 05:36 Range/Units White Blood Count 6.89 4.8-10.8 K/uL Red Blood Count 3.25 4.7-6.1 M/uL Hemoglobin 9.1 14.0-18.0 g/dL Hematocrit 28.6 42-52 % Mean Corpuscular Volume 88.0 80-100 fL Mean Corpuscular Hemoglobin 28.0 25-34 pg Mean Corpuscular Hemoglobin Concent 31.8 32-36 g/dl Platelet Count 166 130-400 K/uL Mean Platelet Volume 9.0 7.4-10.4 fL Neutrophils (%) (Auto) 73.9 % Lymphocytes (%) (Auto) 14.2 % Monocytes (%) (Auto) 8.6 % Eosinophils (%) (Auto) 2.9 % Basophils (%) (Auto) 0.3 % Neutrophils # (Auto) 5.09 1.4-6.5 K/uL Lymphocytes # (Auto) 0.98 1.2-3.4 K/uL Monocytes # (Auto) 0.59 0.11-0.59 K/uL Eosinophils # (Auto) 0.20 0-0.5 K/uL Basophils # (Auto) 0.02 0-0.2 K/uL RDW Standard Deviation 54.7 36.4-46.3 fL RDW Coefficient of Variation 17.1 11.5-14.5 % Immature Granulocyte % (Auto) 0.1 % Immature Granulocyte # (Auto) 0.01 0.00-0.02 K/uL Sodium Level 137 136-145 mmol/L Potassium Level 3.3 3.5-5.1 mmol/L Chloride Level 105 98-107 mmol/L Carbon Dioxide Level 22 21-32 mmol/L Anion Gap 10.0 3-11 mmol/L Blood Urea Nitrogen 31 7-18 mg/dl Creatinine 2.53 0.60-1.40 mg/dl Est Creatinine Clear Calc Drug Dose 32.6 ml/min Estimated GFR () 29.5 Estimated GFR (Non- 25.4 BUN/Creatinine Ratio 12.4 10-20 Random Glucose 103 70-99 mg/dl Calcium Level 9.2 8.5-10.1 mg/dl Magnesium Level 2.3 1.8-2.4 mg/dl
[2017-08-07 19:04] VITALS: BP 107/69; PULSE 59; TEMP 36.4; O2SAT 96
[2017-08-07] MEDS: CALCIUM 600MG + VIT D 400 IU TAB PO SCH (21:59)
[2017-08-07] MEDS: MULTIVITAMIN TAB PO SCH (22:00)
[2017-08-07] MEDS: MAGNESIUM OXIDE 400 MG TAB PO SCH (22:00)
[2017-08-07 23:30] VITALS: BP 114/67; PULSE 73; TEMP 36.3; O2SAT 97
[2017-08-08] VITALS (9 sets, daily range): BP systolic 105–151; BP diastolic 60–84; PULSE 58–83; TEMP 36.3–36.6; O2SAT 92–98
[2017-08-08] MEDS: POLYETHYLENE (MIRALAX) 17 GM PACK PO SCH (03:27)
[2017-08-08 05:46] LABS: BASO % 0.3 %; BASO ABS # 0.02 K/uL (0-0.2); EOS % 2.9 %; HEMATOCRIT 28.6 % (42-52); HEMOGLOBIN 9.1 g/dL (14.0-18.0); IG# 0.01 K/uL (0.00-0.02); LYMPH % 14.2 %; LYMPH ABS # 0.98 K/uL (1.2-3.4); MEAN CORPUSCULAR HGB CONC 31.8 g/dl (32-36); MONO % 8.6 %; MONO ABS # 0.59 K/uL (0.11-0.59); NEUT % 73.9 %; NEUT ABS # 5.09 K/uL (1.4-6.5); PLATELET COUNT 166 K/uL (130-400); RED CELL DISTRIBUTION WIDTH CV 17.1 % (11.5-14.5); RED CELL DISTRIBUTION WIDTH SD 54.7 fL (36.4-46.3); WHITE BLOOD COUNT 6.89 K/uL (4.8-10.8)
[2017-08-08 06:16] LABS: CALCIUM 9.2 mg/dl (8.5-10.1); CREATININE 2.53 mg/dl (0.60-1.40); POTASSIUM 3.3 mmol/L (3.5-5.1)
[2017-08-08] MEDS: FUROSEMIDE 40 MG TAB PO SCH (07:56)
[2017-08-08] MEDS: ATORVASTATIN 10 MG TAB PO SCH (07:56)
[2017-08-08] MEDS: ISOSORBIDE MONONITRATE 30 MG TABCR PO SCH (07:56)
[2017-08-08] MEDS: CARVEDILOL 25 MG TAB PO SCH ×2 (07:56→21:22)
[2017-08-08] MEDS: POTASSIUM CHLR 10 MEQ / WTR 10 MEQ in PREMIXED WATER 100 ML IV SCH ×2 (07:56→08:30)
[2017-08-08] MEDS: CALCITRIOL 0.25 MCG CAP PO SCH (07:56)
[2017-08-08] MEDS: DILTIAZEM HCL (TIAzac) 180 MG CAPCR PO SCH (07:57)
[2017-08-08] MEDS: LISINOPRIL 40 MG TAB PO SCH (07:57)
[2017-08-08] MEDS: FINASTERIDE 5 MG TAB PO SCH (07:57)
--- NOTE | 2017-08-08 12:36 | Endo History and Physical ---
History & Physical Date of Service: Aug 08, 2017. Chief Complaint: Referring Physician: History of Present Illness Patient with anemia, here for EGD and colonoscopy Past Medical History Atrial Fibrillation, Fractures, CHF, Hypertension, Kidney Disease Past Surgical History Hx Cardiac Surgery: Yes (Cardiac Cath 2010) Hx Abdominal Surgery: No Hx Post-Op Nausea and Vomiting: No Hx Cancer Surgery: No Hx Thoracic Surgery: No Hx Orthopedic: No Hx Urinary Tract Surgery: Yes (Kidney Stones 2009) Social History Smoking Status: Former Smoker Smokeless Tobacco Use: No Hx Substance Use: No Hx Alcohol Use: No Allergies Coded Allergies: Oxycodone (Verified Allergy, Intermediate, HIVES, 02/06/15) Current Medications Reported Home Medications Medications Dose Route/Sig Max Daily Dose Days Date Category Dose Instructions Proscar (Finasteride) 5 Mg Tab 5 Mg PO DAILY 08/05/17 Reported Imdur Ext Rel (Isosorbide Mononitrate) 30 Mg Ertab 30 Mg PO QAM 08/05/17 Reported Flonase Allergy Relief (Fluticasone Propionate (Nasal)) 50 Mcg/Act Spr 2 Sprays LAURENCE DAILY 08/05/17 Reported Aspirin 325 Mg Tab 162.5 Mg PO QPM 01/22/15 Reported Calcium 500+D (Calcium Carbonate-Vitamin D) 1 Tab Tab 1 Tab PO QPM 04/17/14 Reported Diltiazem Hcl Er (Diltiazem Hcl Coated Beads) 360 Mg Cap 360 Mg PO DAILY 04/17/14 Reported Eplerenone 25 Mg Tab 12.5 Mg PO DAILY 04/17/14 Reported Fexofenadine HCl 180 Mg Tab 180 Mg PO DAILY PRN 04/17/14 Reported Carvedilol 25 Mg Tab 25 Mg PO BID 04/17/14 Reported take with food Lipitor (Atorvastatin Calcium) 10 Mg Tab 10 Mg PO DAILY 04/17/14 Reported Furosemide 40 Mg Tab 40 Mg PO DAILY 04/17/14 Reported Calcitriol 0.25 Mcg Cap 1 Tab PO DAILY 04/17/14 Reported Lisinopril 40 Mg Tab 40 Mg PO DAILY 04/17/14 Reported Multivitamin (Multivitamins) Tab 1 Tab PO QPM 04/17/14 Reported Mag-Ox (Magnesium Oxide) 400 Mg Tab 400 Mg PO QPM 04/17/14 Reported Vital Signs Weight (Kilograms): 96.200 Height (Feet): 5 Height (Inches): 8.00 Date Time Temp Pulse Resp B/P (MAP) Pulse Ox O2 Delivery O2 Flow Rate FiO2 08/08/17 12:25 36.5 73 20 108/69 (82) 94 Room Air 08/08/17 11:50 36.6 76 20 108/66 (80) 96 Room Air 08/08/17 11:35 Room Air 08/08/17 07:45 Room Air 08/08/17 07:03 36.4 77 20 151/84 (106) 97 Room Air 08/08/17 04:17 36.5 83 18 118/70 (86) 98 Room Air 08/08/17 04:05 Room Air 08/08/17 00:05 Room Air 08/07/17 23:30 36.3 73 21 114/67 (83) 97 Room Air 08/07/17 20:05 Room Air 08/07/17 19:04 36.4 59 18 107/69 (82) 96 Room Air 08/07/17 16:00 Room Air 08/07/17 15:26 36.4 56 18 111/70 (84) 95 Room Air Physical Exam General Appearance: no apparent distress Cardiovascular: Heart Auscultation: RRR Abdomen: Inspection & Palpation: soft Liver: non-tender Assessment and Plan Stable for EGD and colonoscopy
[2017-08-08] MEDS ORDERED: MIDAZOLAM HCL 1 MG/ML 2ML VIAL ONE (13:08)
--- NOTE | 2017-08-08 13:24 | Clinical Documentation Query ---
CLINICAL DOCUMENTATION QUERY Dr. CAMPOS, In your clinical opinion is this patient being managed for: ( x) Chronic diastolic CHF ( ) Not Agree ( ) Other explanation of clinical findings (Please Explain) ( ) Unable to determine (Please Define) ( ) Need to Discuss The medical record reflects the following clinical findings, treatment, and risk factors. Clinical Indicators: Pt noted to have a hx of CHF. Review of ECHO from October 2010 revealed EF 55-60%. Treatment: chronic management includes carvedilol, diltiazem, Eplerenone, diltiazem, lasix, imdur est rel, Risk Factors: age, CKD stage IV, HTN, Please clarify and document your clinical opinion in the progress notes and discharge summary. Terms such as "probable", "suspected", "likely", "questionable", "possible", or "still to be ruled out" are acceptable. IF IN AGREEMENT, YOU MUST DOCUMENT ABOVE DIAGNOSTIC STATEMENT IN DAILY PROGRESS NOTES AND DISCHARGE SUMMARY. This document is not part of the patient's record. Thank You, Manda Dunn, DEMAR [phone]
[2017-08-08] MEDS ORDERED: PROPOFOL IV EMULSION 10 MG/ML 20 ML VIAL IV ONE (13:46)
[2017-08-08] MEDS ORDERED: LIDOCAINE HCL 2% 2 ML VIAL (20MG/ML) ONE ×2 (13:46)
--- NOTE | 2017-08-08 13:48 | GI REPORT ---
Procedure Date: 08/08/2017 1:18 PM Procedure: Upper GI endoscopy Indications: Anemia Medicines: Monitored Anesthesia Care Complications: No immediate complications. Estimated Blood Loss: Estimated blood loss: none. Procedure: Pre-Anesthesia Assessment: - Prior to the procedure, a History and Physical was performed, and patient medications and allergies were reviewed. The patient is competent. The risks and benefits of the procedure and the sedation options and risks were discussed with the patient. All questions were answered and informed consent was obtained. Patient identification and proposed procedure were verified by the physician and the nurse in the procedure room. Mental Status Examination: alert and oriented. Airway Examination: normal oropharyngeal airway and neck mobility. Respiratory Examination: clear to auscultation. CV Examination: normal. ASA Grade Assessment: III - A patient with severe systemic disease. After reviewing the risks and benefits, the patient was deemed in satisfactory condition to undergo the procedure. The anesthesia plan was to use monitored anesthesia care (MAC). Immediately prior to administration of medications, the patient was re-assessed for adequacy to receive sedatives. The heart rate, respiratory rate, oxygen saturations, blood pressure, adequacy of pulmonary ventilation, and response to care were monitored throughout the procedure. The physical status of the patient was re-assessed after the procedure. After obtaining informed consent, the endoscope was passed under direct vision. Throughout the procedure, the patient's blood pressure, pulse, and oxygen saturations were monitored continuously. The Scope was introduced through the mouth, and advanced to the second part of duodenum. The upper GI endoscopy was accomplished without difficulty. The patient tolerated the procedure well. Findings: The examined esophagus was normal. A few localized, small non-bleeding erosions were found in the gastric antrum. Biopsies were taken with a cold forceps for histology. Biopsies were taken with a cold forceps for Helicobacter pylori testing. Verification of patient identification for the specimen was done by the physician and nurse using the patient's name and date. 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 Biopsies were taken with a cold forceps for histology. The second portion of the duodenum was normal. Biopsies for histology were taken with a cold forceps for evaluation of celiac disease. Impression: - Normal esophagus. - Non-bleeding erosive gastropathy. Biopsied. - Granular mucosa in the duodenal bulb. Biopsied. - Normal second portion of the duodenum. Biopsied. Recommendation: - Await pathology results. - PO PPI for 4 weeks. - Perform a colonoscopy today. Geoff Vernon MD 08/08/2017 1:47:27 PM This report has been signed electronically. Note Initiated On: 08/08/2017 1:18 PM I attest to the content of the Intraoperative Record and orders documented therein, exceptions below
[2017-08-08] MEDS ORDERED: EpHEDrine SULFATE 50MG/5ML SYR ONE (13:51)
--- NOTE | 2017-08-08 13:51 | GI REPORT ---
Procedure Date: 08/08/2017 1:29 PM Procedure: Colonoscopy Indications: Anemia Medicines: Monitored Anesthesia Care Complications: No immediate complications. Estimated Blood Loss: Estimated blood loss: none. Procedure: Pre-Anesthesia Assessment: - Prior to the procedure, a History and Physical was performed, and patient medications and allergies were reviewed. The patient is competent. The risks and benefits of the procedure and the sedation options and risks were discussed with the patient. All questions were answered and informed consent was obtained. Patient identification and proposed procedure were verified by the physician and the nurse in the procedure room. Mental Status Examination: alert and oriented. Airway Examination: normal oropharyngeal airway and neck mobility. Respiratory Examination: clear to auscultation. CV Examination: normal. ASA Grade Assessment: III - A patient with severe systemic disease. After reviewing the risks and benefits, the patient was deemed in satisfactory condition to undergo the procedure. The anesthesia plan was to use monitored anesthesia care (MAC). Immediately prior to administration of medications, the patient was re-assessed for adequacy to receive sedatives. The heart rate, respiratory rate, oxygen saturations, blood pressure, adequacy of pulmonary ventilation, and response to care were monitored throughout the procedure. The physical status of the patient was re-assessed after the procedure. After I obtained informed consent, the scope was passed under direct vision. Throughout the procedure, the patient's blood pressure, pulse, and oxygen saturations were monitored continuously. The scope was introduced through the anus and advanced to the terminal ileum. The colonoscopy was performed without difficulty. The patient tolerated the procedure well. The quality of the bowel preparation was good. The terminal ileum, ileocecal valve, appendiceal orifice, and rectum were photographed. Findings: The perianal and digital rectal examinations were normal. The terminal ileum appeared normal. A few small-mouthed diverticula were found in the sigmoid colon. Non-bleeding internal hemorrhoids were found during retroflexion. The hemorrhoids were medium-sized. Impression: - The examined portion of the ileum was normal. - Diverticulosis in the sigmoid colon. - Non-bleeding internal hemorrhoids. - No specimens collected. Recommendation: - Return patient to [facility] for ongoing care. - Repeat colonoscopy in 5 years for surveillance. - To visualize the small bowel, perform video capsule endoscopy electively as outpatient. Geoff Vernon MD 08/08/2017 1:50:19 PM This report has been signed electronically. Note Initiated On: 08/08/2017 1:29 PM I attest to the content of the Intraoperative Record and orders documented therein, exceptions below
--- NOTE | 2017-08-08 14:18 | Progress Note ---
Internal Med Progress Note Date of Service: Aug 08, 2017. Provider Documentation: SUBJECTIVE: on and off nose bleeds had prep for colonoscopy and says had multiple bowel movements afebrile no sob or chest pain no nausea awaiting scopes OBJECTIVE: Vital Signs-as noted below Exam: General-alert and oriented. Not in distress ENT-Normal hearing Neck-no neck masses Lungs-cta b/l no wheezing or crackles Heart-S 1 and s2 heard regular no murmurs Abdomen-soft bowel sounds present non tender no distension Extremities-no edema no erythema Neuro-alert and awake moves extremities Lab data as noted below. ASSESSMENT & PLAN: SYMPTOMATIC ANEMIA Acute blood loss on chronic anemia? hb 7.1 on presentation s/p one unit prbc transfused heme positive stools no obvious bleeding hb 9.1 today appreciate Gi inputs s/p bowel prep plan for egd and colonoscopy today-await results Encephalopathy delirium disoriented today morning back to baseline currently ct head negative stable CHRONIC ATRIAL FIBRILLATION Rate controlled. Not on Coumadin On diltiazem and carvedilol will monitor Bradycardia when sleeping will monitor if symptomatic will cut back on diltiazem. stable CAD/CARDIOMYOPATHY On statin, beta-sylvain, imdur Holding aspirin Stable HX chronic diastolic CHF: stable On Lasix CKD IV Cr: 2.6 which is ~baseline will f/u labs HTN: Stable On carvedilol, diltiazem, lisinopril, Lasix, eplerenone DYSLIPIDEMIA: on statin DVT Prophylaxis SCDs secondary to anemia Disposition Monitor in tele Full Code as per admissions Follows with Dr Trujillo for routine care possible d/c today or in am Vital Signs: Date Time Temp Pulse Resp B/P (MAP) Pulse Ox O2 Delivery O2 Flow Rate FiO2 08/08/17 14:02 65 18 105/49 (67) 93 Room Air 08/08/17 13:47 65 16 93/55 (68) 93 Room Air 08/08/17 12:25 36.5 73 20 108/69 (82) 94 Room Air 08/08/17 11:50 36.6 76 20 108/66 (80) 96 Room Air 08/08/17 11:35 Room Air 08/08/17 07:45 Room Air 08/08/17 07:03 36.4 77 20 151/84 (106) 97 Room Air 08/08/17 04:17 36.5 83 18 118/70 (86) 98 Room Air 08/08/17 04:05 Room Air 08/08/17 00:05 Room Air 08/07/17 23:30 36.3 73 21 114/67 (83) 97 Room Air 08/07/17 20:05 Room Air 08/07/17 19:04 36.4 59 18 107/69 (82) 96 Room Air 08/07/17 16:00 Room Air 08/07/17 15:26 36.4 56 18 111/70 (84) 95 Room Air Lab Results: Results Past 24 Hours Test 08/08/17 05:36 Range/Units White Blood Count 6.89 4.8-10.8 K/uL Red Blood Count 3.25 4.7-6.1 M/uL Hemoglobin 9.1 14.0-18.0 g/dL Hematocrit 28.6 42-52 % Mean Corpuscular Volume 88.0 80-100 fL Mean Corpuscular Hemoglobin 28.0 25-34 pg Mean Corpuscular Hemoglobin Concent 31.8 32-36 g/dl Platelet Count 166 130-400 K/uL Mean Platelet Volume 9.0 7.4-10.4 fL Neutrophils (%) (Auto) 73.9 % Lymphocytes (%) (Auto) 14.2 % Monocytes (%) (Auto) 8.6 % Eosinophils (%) (Auto) 2.9 % Basophils (%) (Auto) 0.3 % Neutrophils # (Auto) 5.09 1.4-6.5 K/uL Lymphocytes # (Auto) 0.98 1.2-3.4 K/uL Monocytes # (Auto) 0.59 0.11-0.59 K/uL Eosinophils # (Auto) 0.20 0-0.5 K/uL Basophils # (Auto) 0.02 0-0.2 K/uL RDW Standard Deviation 54.7 36.4-46.3 fL RDW Coefficient of Variation 17.1 11.5-14.5 % Immature Granulocyte % (Auto) 0.1 % Immature Granulocyte # (Auto) 0.01 0.00-0.02 K/uL Sodium Level 137 136-145 mmol/L Potassium Level 3.3 3.5-5.1 mmol/L Chloride Level 105 98-107 mmol/L Carbon Dioxide Level 22 21-32 mmol/L Anion Gap 10.0 3-11 mmol/L Blood Urea Nitrogen 31 7-18 mg/dl Creatinine 2.53 0.60-1.40 mg/dl Est Creatinine Clear Calc Drug Dose 32.6 ml/min Estimated GFR () 29.5 Estimated GFR (Non- 25.4 BUN/Creatinine Ratio 12.4 10-20 Random Glucose 103 70-99 mg/dl Calcium Level 9.2 8.5-10.1 mg/dl Magnesium Level 2.3 1.8-2.4 mg/dl
--- NOTE | 2017-08-08 14:32 | Anesthesiology Progress Note ---
Anesthesia Post Op Note Date & Time Aug 08, 2017 at 14:32 Vital Signs Pain Intensity: 0.0 Vital Signs Past 12 Hours Date Time Temp Pulse Resp B/P (MAP) Pulse Ox O2 Delivery O2 Flow Rate FiO2 08/08/17 14:18 62 18 103/49 (67) 93 Room Air 08/08/17 14:02 65 18 105/49 (67) 93 Room Air 08/08/17 13:47 65 16 93/55 (68) 93 Room Air 08/08/17 12:25 36.5 73 20 108/69 (82) 94 Room Air 08/08/17 11:50 36.6 76 20 108/66 (80) 96 Room Air 08/08/17 11:35 Room Air 08/08/17 07:45 Room Air 08/08/17 07:03 36.4 77 20 151/84 (106) 97 Room Air 08/08/17 04:17 36.5 83 18 118/70 (86) 98 Room Air 08/08/17 04:05 Room Air Notes Mental Status: alert / awake / arousable, participated in evaluation Pt Amnestic to Procedure: Yes Nausea / Vomiting: adequately controlled Pain: adequately controlled Airway Patency, RR, SpO2: stable & adequate BP & HR: stable & adequate Hydration State: stable & adequate Anesthetic Complications: no major complications apparent
--- NOTE | 2017-08-08 16:47 | Gastroenterology Progress Note ---
Gastroenterology Progress Note Patient underwent EGD and colonoscopy for anemia, no source of bleeding seen. Has small gastric erosions. Anemia is likely related to chronic illness and renal disease. Recommend: PO PPI for 4 weeks Will arrange for VCE as outpatient. Recall GI if needed.
[2017-08-08] MEDS: MAGNESIUM OXIDE 400 MG TAB PO SCH (21:21)
[2017-08-08] MEDS: CALCIUM 600MG + VIT D 400 IU TAB PO SCH (21:22)
[2017-08-08] MEDS: MULTIVITAMIN TAB PO SCH (21:22)
[2017-08-09] VITALS: BP 106/67; PULSE 85; TEMP 36.6; O2SAT 99
[2017-08-09 04:00] VITALS: BP 107/66; PULSE 83; TEMP 36.5; O2SAT 95
[2017-08-09 06:01] LABS: BASO % 0.5 %; BASO ABS # 0.03 K/uL (0-0.2); EOS % 2.7 %; EOS ABS # 0.17 K/uL (0-0.5); HEMATOCRIT 27.8 % (42-52); HEMOGLOBIN 8.9 g/dL (14.0-18.0); IG# 0.01 K/uL (0.00-0.02); LYMPH % 15.3 %; LYMPH ABS # 0.95 K/uL (1.2-3.4); MEAN CELL VOLUME 86.9 fL (80-100); MEAN CORPUSCULAR HEMOGLOBIN 27.8 pg (25-34); MEAN PLATELET VOLUME 9.9 fL (7.4-10.4); MONO % 9.2 %; MONO ABS # 0.57 K/uL (0.11-0.59); NEUT % 72.1 %; NEUT ABS # 4.46 K/uL (1.4-6.5); PLATELET COUNT 180 K/uL (130-400); RED CELL DISTRIBUTION WIDTH CV 16.8 % (11.5-14.5); RED CELL DISTRIBUTION WIDTH SD 53.1 fL (36.4-46.3); WHITE BLOOD COUNT 6.19 K/uL (4.8-10.8)
[2017-08-09 06:32] LABS: CREATININE 2.52 mg/dl (0.60-1.40); POTASSIUM 3.4 mmol/L (3.5-5.1)
[2017-08-09 07:28] VITALS: BP 123/71; PULSE 72; TEMP 36.6; O2SAT 95
[2017-08-09 07:52] VITALS: BP 137/76; PULSE 103
[2017-08-09] MEDS: FINASTERIDE 5 MG TAB PO SCH (07:52)
[2017-08-09] MEDS: CALCITRIOL 0.25 MCG CAP PO SCH (07:53)
[2017-08-09] MEDS: ATORVASTATIN 10 MG TAB PO SCH (07:53)
[2017-08-09] MEDS: LISINOPRIL 40 MG TAB PO SCH (07:53)
[2017-08-09] MEDS: CARVEDILOL 25 MG TAB PO SCH (07:53)
[2017-08-09] MEDS: DILTIAZEM HCL (TIAzac) 180 MG CAPCR PO SCH (07:53)
[2017-08-09] MEDS: ISOSORBIDE MONONITRATE 30 MG TABCR PO SCH (07:53)
[2017-08-09] MEDS: FUROSEMIDE 40 MG TAB PO SCH (07:53)
[2017-08-09 10:08] VITALS: BP 107/67; PULSE 76
[2017-08-09] MEDS ORDERED: POTASSIUM CHLORIDE 10 MEQ TABCR PO STA (10:11)
[2017-08-09] MEDS ORDERED: PANT40TA PO (10:40)
--- NOTE | 2017-08-09 10:45 | Discharge Instructions ---
Discharge Instructions Date of Service Aug 09, 2017. Admission Reason for Admission: Anemia, Sob Discharge Discharge Diagnosis / Problem: Anemia, sob Discharge Goals Goal(s): Decrease discomfort, Improve function Activity Recommendations Activity Limitations: resume your previous activity . Instructions / Follow-Up Instructions / Follow-Up FOLLOWUP WITH FAMILY DOCTOR ON August AT 11AM. TO TAKE PROTONIX 4OMG PO DAILY BEFORE BREAKFAST FOR 1-2 MONTHS. HOLD ASPIRIN FOR 4-5DAYS AND RESUME USUAL HOME DOSE. FOLLOWUP WITH KIDNEY DOCTOR FOR CHRONIC KIDNEY DISEASE AND ANEMIA IN 2-3 WEEKS. FOLLOWUP WITH ENT WITH FAMILY DOCTOR REFERRAL IF NOSE BLEEDS RECURS Current Hospital Diet Patient's current hospital diet: AHA Diet (Heart Healthy) Discharge Diet Recommended Diet: AHA Diet (Heart Healthy) Pending Studies Studies pending at discharge: no Medical Emergencies . Who to Call and When: Medical Emergencies: If at any time you feel your situation is an emergency, please call 911 immediately. . Non-Emergent Contact Non-Emergency issues call your: Primary Care Provider . . "Provider Documentation" section prepared by Lamont Bell. .
[2017-08-09 11:02] VITALS: BP 107/67; PULSE 76; TEMP 36.6; O2SAT 95
--- NOTE | 2017-08-09 18:30 | Progress Note ---
Internal Med Progress Note Date of Service: Aug 09, 2017. Provider Documentation: SUBJECTIVE: RESTING COMFORTABLY EATING OK NO CHEST PAIN OR SOB AFEBRILE OK TO GO HOME OBJECTIVE: Vital Signs-as noted below Exam: General-alert and oriented. Not in distress ENT-Normal hearing Neck-no neck masses Lungs-cta b/l no wheezing or crackles Heart-S 1 and s2 heard regular no murmurs Abdomen-soft bowel sounds present non tender no distension Extremities-no edema no erythema Neuro-alert and awake moves extremities Lab data as noted below. ASSESSMENT & PLAN: SYMPTOMATIC ANEMIA Acute blood loss on chronic anemia? hb 7.1 on presentation s/p one unit prbc transfused heme positive stools no obvious bleeding hb 9.1 today appreciate Gi inputs s/p bowel prep s/p egd- non bleeding erosive gastropathy colonoscopy-unremarkable video capsule as per GI d/c on ppi for 1-2 months followup with GI Encephalopathy delirium disoriented today morning back to baseline currently ct head negative stable CHRONIC ATRIAL FIBRILLATION Rate controlled. Not on Coumadin On diltiazem and carvedilol to hold aspirin for few days and resume will monitor Bradycardia when sleeping will monitor if symptomatic will cut back on diltiazem. stable CAD/CARDIOMYOPATHY On statin, beta-sylvain, imdur Holding aspirin Stable HX chronic diastolic CHF: stable On Lasix CKD IV Cr: 2.6 which is ~baseline cr 2.5 today f/u with nephrology for anemia o chronic disease Epistaxis on and off f/u with ENT with pcp referral HTN: Stable On carvedilol, diltiazem, lisinopril, Lasix, eplerenone DYSLIPIDEMIA: on statin Discharged home Vital Signs: Date Time Temp Pulse Resp B/P (MAP) Pulse Ox O2 Delivery O2 Flow Rate FiO2 08/09/17 11:02 36.6 76 16 95 Room Air 08/09/17 10:08 76 107/67 (80) 08/09/17 08:00 Room Air 08/09/17 07:52 103 137/76 (96) 08/09/17 07:28 36.6 72 16 123/71 (88) 95 Room Air 08/09/17 04:00 36.5 83 20 107/66 (80) 95 Room Air 08/09/17 04:00 Room Air 08/09/17 00:00 36.6 85 18 106/67 (80) 99 Room Air 08/08/17 23:53 Room Air 08/08/17 20:00 Room Air 08/08/17 19:49 36.6 80 20 139/72 (94) 92 Room Air Lab Results: Results Past 24 Hours Test 08/09/17 05:30 Range/Units White Blood Count 6.19 4.8-10.8 K/uL Red Blood Count 3.20 4.7-6.1 M/uL Hemoglobin 8.9 14.0-18.0 g/dL Hematocrit 27.8 42-52 % Mean Corpuscular Volume 86.9 80-100 fL Mean Corpuscular Hemoglobin 27.8 25-34 pg Mean Corpuscular Hemoglobin Concent 32.0 32-36 g/dl Platelet Count 180 130-400 K/uL Mean Platelet Volume 9.9 7.4-10.4 fL Neutrophils (%) (Auto) 72.1 % Lymphocytes (%) (Auto) 15.3 % Monocytes (%) (Auto) 9.2 % Eosinophils (%) (Auto) 2.7 % Basophils (%) (Auto) 0.5 % Neutrophils # (Auto) 4.46 1.4-6.5 K/uL Lymphocytes # (Auto) 0.95 1.2-3.4 K/uL Monocytes # (Auto) 0.57 0.11-0.59 K/uL Eosinophils # (Auto) 0.17 0-0.5 K/uL Basophils # (Auto) 0.03 0-0.2 K/uL RDW Standard Deviation 53.1 36.4-46.3 fL RDW Coefficient of Variation 16.8 11.5-14.5 % Immature Granulocyte % (Auto) 0.2 % Immature Granulocyte # (Auto) 0.01 0.00-0.02 K/uL Tear Drop Cells 1+ Sodium Level 139 136-145 mmol/L Potassium Level 3.4 3.5-5.1 mmol/L Chloride Level 107 98-107 mmol/L Carbon Dioxide Level 23 21-32 mmol/L Anion Gap 9.0 3-11 mmol/L Blood Urea Nitrogen 35 7-18 mg/dl Creatinine 2.52 0.60-1.40 mg/dl Est Creatinine Clear Calc Drug Dose 32.3 ml/min Estimated GFR () 29.6 Estimated GFR (Non- 25.5 BUN/Creatinine Ratio 14.0 10-20 Random Glucose 87 70-99 mg/dl Calcium Level 9.0 8.5-10.1 mg/dl Magnesium Level 2.3 1.8-2.4 mg/dl
--- NOTE | 2017-08-09 18:39 | Discharge Summary ---
Discharge Summary Date of Service Aug 09, 2017. 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 Cardiomegaly with volume overload and congestive change. No collette pulmonary edema. No focal consolidation to suggest pneumonia. ABDOMINAL XRAY: 1. No evidence of obstruction or gross free air. 2. Right nephrolithiasis. CT HEAD: Chronic small vessel change. No acute intracranial abnormality. S/P EGD AND COLONOSCOPY Consultations: GI Medication Reconciliation New Medications: Pantoprazole (Protonix) 40 Mg Tab 40 MG PO DAILY, #30 TAB 1 Refill Continued Medications: Aspirin (Aspirin) 325 Mg Tab 162.5 MG PO QPM Atorvastatin (Lipitor) 10 Mg Tab 10 MG PO DAILY Calcitriol (Calcitriol) 0.25 Mcg Cap 1 TAB PO DAILY Calcium Carbonate-Vitamin D (Calcium 500+D) 1 Tab Tab 1 TAB PO QPM Carvedilol (Carvedilol) 25 Mg Tab 25 MG PO BID take with food Diltiazem Hcl Coated Beads (Diltiazem Hcl Er) 360 Mg Cap 360 MG PO DAILY Eplerenone (Eplerenone) 25 Mg Tab 12.5 MG PO DAILY Fexofenadine HCl (Fexofenadine HCl) 180 Mg Tab 180 MG PO DAILY PRN for ALLERGIES Finasteride (Proscar) 5 Mg Tab 5 MG PO DAILY, TAB Fluticasone Propionate (Nasal) (Flonase Allergy Relief) 50 Mcg/Act Spr 2 SPRAYS LAURENCE DAILY Furosemide (Furosemide) 40 Mg Tab 40 MG PO DAILY Isosorbide Mononitrate Ext Rel (Imdur Ext Rel) 30 Mg Ertab 30 MG PO QAM, TAB Lisinopril (Lisinopril) 40 Mg Tab 40 MG PO DAILY Magnesium Oxide (Mag-Ox) 400 Mg Tab 400 MG PO QPM Multivitamin (Multivitamin) Tab 1 TAB PO QPM Admission Information HPI (per Admitting provider): Pt is 66 y/o M with PMH chronic A. fib not on Coumadin, HTN, cardiomyopathy, CHF , pulmonary hypertension, CAD, dyslipidemia, CKD IV presented to ER referred for anemia. Hemoglobin 7. Patient reports shortness of breath for the past 3 weeks. Denies any worsening shortness of breath with exertion. Patient feels shortness of breath started 3 weeks ago when he noticed distention of his abdomen and was having some constipation. Patient reports followed up with PCP and took Miralax for 2 weeks and has since been having daily bowel movements that are soft and he reports that the abdominal distention and firmness has resolved. Denies any abdominal pain. Patient also complains of nonproductive cough for the past 3 weeks. Chronically uses 2 pillows denies any worsening orthopnea, denies PND or lower extremity edema.Patient reports every winter has increased congestion and notices blood mixed in with mucus when blowing nose. Patient states this winter has noticed more blood in mucus when he blows his nose only denies other epistaxis. Patient denies history of GI bleeding or gastric ulcers in the past. Patient reports history of colonoscopy greater than 15 years ago which she reports was "normal". Denies melena, hematochezia. Denies fever/chills, diaphoresis, N/V/D, WEBER, dizziness, syncope, vision changes , neck pain, CP, palpitations, hemoptysis, indigestion, sore throat, choking, otalgia, paresthesias, weakness, extremity weakness, extremity edema, rashes, urinary symptoms. History echo 10/30: Atrial fibrillation, normal LV chamber size with mild concentric LVH. Normal LV systolic function without regional wall motion abnormality. EF: 56%. Mild tricuspid regurgitation. Moderate left atrial enlargement. Physical Exam (per Admitting): General Appearance: WD/WN, no apparent distress Head: normocephalic, atraumatic Eyes: normal inspection, PERRL, EOMI, sclerae normal, + pertinent finding ( pale conjucntiva) ENT: hearing grossly normal, pharynx normal, + pertinent finding (Mucous membranes moist) Neck: supple, no JVD, trachea midline Respiratory/Chest: lungs clear, normal breath sounds, no respiratory distress Cardiovascular: no murmur, + irregularly irregular (Rate 80s) Abdomen/GI: normal bowel sounds, non tender, soft Extremities/Musculoskelatal: normal inspection, no calf tenderness, normal capillary refill, no pedal edema, normal range of motion, non-tender Neurologic/Psych: alert, normal mood/affect, oriented x 3 Skin: normal color, warm/dry Hospital Course SYMPTOMATIC ANEMIA Acute blood loss on chronic anemia? hb 7.1 on presentation s/p one unit prbc transfused heme positive stools no obvious bleeding hb 9.1 today appreciate Gi inputs s/p bowel prep s/p egd- non bleeding erosive gastropathy colonoscopy-unremarkable video capsule as per GI d/c on ppi for 1-2 months followup with GI Encephalopathy delirium disoriented today morning back to baseline currently ct head negative stable CHRONIC ATRIAL FIBRILLATION Rate controlled. Not on Coumadin On diltiazem and carvedilol to hold aspirin for few days and resume will monitor Bradycardia when sleeping will monitor if symptomatic will cut back on diltiazem. stable CAD/CARDIOMYOPATHY On statin, beta-sylvain, imdur Holding aspirin Stable HX chronic diastolic CHF: stable On Lasix CKD IV Cr: 2.6 which is ~baseline cr 2.5 today f/u with nephrology for anemia o chronic disease Epistaxis on and off f/u with ENT with pcp referral HTN: Stable On carvedilol, diltiazem, lisinopril, Lasix, eplerenone DYSLIPIDEMIA: on statin Discharged home Total time spent on discharge = 35MINUTES This includes examination of the patient, discharge planning, medication reconciliation, and communication with other providers. Discharge Instructions Discharge Instructions Date of Service Aug 09, 2017. Admission Reason for Admission: Anemia, Sob Discharge Discharge Diagnosis / Problem: Anemia, sob Discharge Goals Goal(s): Decrease discomfort, Improve function Activity Recommendations Activity Limitations: resume your previous activity . Instructions / Follow-Up Instructions / Follow-Up FOLLOWUP WITH FAMILY DOCTOR ON August AT 11AM. TO TAKE PROTONIX 4OMG PO DAILY BEFORE BREAKFAST FOR 1-2 MONTHS. HOLD ASPIRIN FOR 4-5DAYS AND RESUME USUAL HOME DOSE. FOLLOWUP WITH KIDNEY DOCTOR FOR CHRONIC KIDNEY DISEASE AND ANEMIA IN 2-3 WEEKS. FOLLOWUP WITH ENT WITH FAMILY DOCTOR REFERRAL IF NOSE BLEEDS RECURS Current Hospital Diet Patient's current hospital diet: AHA Diet (Heart Healthy) Discharge Diet Recommended Diet: AHA Diet (Heart Healthy) Pending Studies Studies pending at discharge: no Medical Emergencies . Who to Call and When: Medical Emergencies: If at any time you feel your situation is an emergency, please call 911 immediately. . Non-Emergent Contact Non-Emergency issues call your: Primary Care Provider .
== END 2017-08-09 12:00 | disposition home or self-care (01) | DRG 811 ==
LOC: C.EDB 15:33 → C.MED 19:30 → ENRESERV 20:45
PROVIDERS: ADMIT Hospitalist; ATTEND Internal Medicine
PROC: 0DJD8ZZ Inspection of Lower Intestinal Tract, Via Natural or Artificial Opening Endoscopic (ICD-10-PCS; principal; 2017-08-08 12:05)
PROC: 0DB68ZX Excision of Stomach, Via Natural or Artificial Opening Endoscopic, Diagnostic (ICD-10-PCS; principal; 2017-08-08 12:05)
PROC: 0DB98ZX Excision of Duodenum, Via Natural or Artificial Opening Endoscopic, Diagnostic (ICD-10-PCS; principal; 2017-08-08 12:05)
DX: D62 Acute posthemorrhagic anemia (principal); G93.40 Encephalopathy, unspecified; I13.0 Hypertensive heart and chronic kidney disease with heart failure and stage 1 through stage 4 chronic kidney disease, or unspecified chronic kidney disease; N18.4 Chronic kidney disease, stage 4 (severe); I50.32 Chronic diastolic (congestive) heart failure; K64.8 Other hemorrhoids; D63.8 Anemia in other chronic diseases classified elsewhere; I48.2 Chronic atrial fibrillation; E78.5 Hyperlipidemia, unspecified; K31.9 Disease of stomach and duodenum, unspecified; I25.10 Atherosclerotic heart disease of native coronary artery without angina pectoris; R04.0 Epistaxis; Z79.82 Long term (current) use of aspirin; Z79.899 Other long term (current) drug therapy; Z87.891 Personal history of nicotine dependence; Z88.5 Allergy status to narcotic agent

== ENCOUNTER 2020-05-14 17:41 | Inpatient (IN) ==
[2020-05-14] MEDS ORDERED: SODIUM CHLORIDE 0.9% 1000ML 1,000 ML IV SCH (18:15)
[2020-05-14 18:54] LABS: Basophils # (auto) 0.01 K/uL (0-0.2); Basophils % (auto) 0.1 %; Eosinophils # (auto) 0.01 K/uL (0-0.5); Eosinophils % (auto) 0.1 %; Hematocrit (blood only) 46.3 % (42-52); Hemoglobin 15.1 g/dL (14.0-18.0); Immature Granulocytes # (auto) 0.05 K/uL (0.00-0.02); Immature Granulocytes % (auto) 0.4 %; Lymphocytes # (auto) 0.42 K/uL (1.2-3.4); Lymphocytes % (auto) 3.3 %; Mean Corpuscular Hemoglobin 29.4 pg (25-34); Mean Corpuscular Hgb Conc 32.6 g/dL (32-36); Mean Corpuscular Volume 90.3 fL (80-100); Mean Platelet Volume 10.3 fL (7.4-10.4); Monocytes # (auto) 0.59 K/uL (0.11-0.59); Monocytes % (auto) 4.6 %; Neutrophils # (auto) 11.79 K/uL (1.4-6.5); Neutrophils % (auto) 91.5 %; Platelet Count 245 K/uL (130-400); RDW Coefficient of Variation 14.8 % (11.5-14.5); RDW Standard Deviation 48.4 fL (36.4-46.3); Red Blood Count 5.13 M/uL (4.7-6.1); White Blood Count 12.87 K/uL (4.8-10.8)
--- NOTE | 2020-05-14 18:55 | XRay Report ---
XR chest 1V portable HISTORY: 69 years-old Male weakness acute weakness. COMPARISON: Acute abdominal series radiographs 02/03/2018 TECHNIQUE: Portable supine AP view of the chest FINDINGS: Cardiomegaly. Calcified plaque of the thoracic aorta. Mild linear scarring/atelectasis of the right l donnie base. No pneumothorax, pleural effusion, airspace consolidation or overt pulmonary edema. Degener ative changes of the shoulders and spine. IMPRESSION: No acute process. ACT 112: Negative or not required by law. The above report was generated using voice recognition software. It may contain grammatical, syntax o r spelling errors. Electronically signed by: Alcides Gray M.D. 05/14/2020 6:54 PM
--- NOTE | 2020-05-14 19:10 | Emergency Department Note ---
History of Present Illness General Chief complaint: Fall Stated complaint: FALL, HIP INJURY, Time Seen by Provider: 05/14/20 17:49 Source: patient and EMS Mode of arrival: EMS Limitations: other (Dementia) History of Present Illness Provider complaint: Fall Maximum Pain Intensity: 7 This is a 69-year-old male who presents to the ED with a chief complaint of a fall. The patient has some mild dementia. He is unable to provide a clear history of when he fell. He was last seen by someone around 6 PM 2 days ago. It is unclear when he fell. His daughter checked on him this evening and found him on the floor. He was laying in feces. EMS was called the patient was brought here for further evaluation. He likely has not taken his medication for the past 24 to 48 hours as well. His main area of pain is the left hip. He does have a history of kidney transplant in December. Home Medications Medication Instructions Recorded Confirmed Type atorvastatin 10 mg PO DAILY 02/03/18 03/30/20 History carvedilol 25 mg PO BID 02/03/18 03/30/20 History ferrous sulfate [Feosol] 325 mg PO QAM 02/03/18 03/30/20 History multivitamin [Multiple Vitamins] 1 tab PO DAILY 02/03/18 03/30/20 History albuterol sulfate 2 inha INH Q4 PRN 03/30/20 03/30/20 History aspirin 81 mg PO DAILY 03/30/20 03/30/20 History diltiazem HCl [Cartia XT] 240 mg PO DAILY 03/30/20 03/30/20 History iwdmacnfmcg-vzjelrqsx-flruwpsw 1 inh INHALATION DAILY 03/30/20 03/30/20 History [Trelegy Ellipta] glipizide 5 mg PO DAILY 03/30/20 03/30/20 History mycophenolate mofetil 500 mg PO BID 03/30/20 03/30/20 History omeprazole 20 mg PO DAILY 03/30/20 03/30/20 History prednisone 5 mg PO BID 03/30/20 03/30/20 History rosuvastatin 5 mg PO DAILY 03/30/20 03/30/20 History semaglutide [Ozempic] 0.5 mg SUBCUT WK 03/30/20 03/30/20 History sulfamethoxazole-trimethoprim 1 tab PO 3XWK 03/30/20 03/30/20 History [Bactrim] tacrolimus 0.5 mg PO AMPM 03/30/20 03/30/20 History valganciclovir 450 mg PO DAILY 03/30/20 03/30/20 History Allergies Allergy/AdvReac Type Severity Reaction Status Date / Time oxycodone Allergy Intermediate HIVES Verified 03/30/20 07:08 Past Med/Surg History Medical History (Updated 05/14/20 @ 20:55 by Azael Becker DO) 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 " Anemia Atrial fibrillation Bimalleolar fracture Bleeding of penis Cardiomyopathy CKD (chronic kidney disease), stage IV Dehydration Dislocation of right ankle joint Dyslipidemia HTN (hypertension) Hypertension Kidney stones Pulmonary hypertension Renal insufficiency SOB (shortness of breath) Family History Other No significant family history Social History Smoking Status: Former smoker Hx Alcohol Use: No Hx Substance Use: No Preferred Language: Greek Communication Ability: Effective Beliefs That Will Affect Care: None Current Living Situation: Family Feels Safe at Home: Yes Assistive Devices: Oxygen - Continuous and Walker Review of Systems A total of 10 systems reviewed and were otherwise negative Physical Exam Vital Signs Vital Signs - 24 hr 05/14/20 17:39 05/14/20 17:52 Temperature 36.6 C Temperature Source Axillary Pulse Rate 116 H Pulse Rhythm Irregular Pulse Strength Bounding Respiratory Rate 26 H Respiratory Effort / Characteristics Non-Labored Spontaneous Respiratory Depth Normal Respiratory Pattern Regular Blood Pressure 161/125 H Blood Pressure Mean 137 Blood Pressure Position Lying Pulse Oximetry 98 96 Oxygen Delivery Method Room Air Room Air Sepsis Recent Fever Within 48 Hours No Sepsis New/Unexplained Change in Mental Status N/A Sepsis Action Taken by Nursing Physician Notified CONSTITUTIONAL/VITAL SIGNS: Reviewed / noted above. GENERAL: Non-toxic in appearance. INTEGUMENTARY: Warm, dry, and [place]. HEAD: Normocephalic. No obvious head trauma. EYES: without scleral icterus or trauma. ENT/OROPHARYNX: clear and moist. LYMPHADENOPATHY/NECK: Is supple without lymphadenopathy or meningismus. No midline C-spine tenderness. RESPIRATORY: Lungs clear and equal. CARDIOVASCULAR: Tachycardic rate and regular rhythm. GI/ABDOMEN: Soft and nontender. No organomegaly or pulsatile mass. No rebound or guarding. Normal bowel sounds. EXTREMITIES: Warm and well perfused. The patient's left leg is externally rotated and flexed at the knee. He has discomfort with movement of the hip. NEUROLOGICAL: Patient is awake and answers questions appropriately with regards to things I asked him now. He does not know what happened to him. He does not know how long he was on the floor. He is oriented to person and place but not time. PSYCHIATRIC: normal affect. MUSCULOSKELETAL: Normally developed for his age. TRIAGE NURSING DOCUMENTATION REVIEWED. Medical Decision Making Differential Diagnosis Differential includes close head injury, intracranial bleed, facial trauma, cerv ical spine trauma, chest and thoracic trauma, abdominal and intra-abdominal trauma, spine neurologic trauma, extremity trauma. Medical Records Attestation: I reviewed the patient's medical records. Laboratory Data Result diagrams: 05/14/20 18:41 05/14/20 18:41 Lab Results 05/14/20 05/14/20 05/14/20 Range/Units 18:41 18:41 18:41 WBC 12.87 H (4.8-10.8) K/uL RBC 5.13 (4.7-6.1) M/uL Hgb 15.1 (14.0-18.0) g/dL Hct 46.3 (42-52) % MCV 90.3 (80-100) fL MCH 29.4 (25-34) pg MCHC 32.6 (32-36) g/dL RDW Std Deviation 48.4 H (36.4-46.3) fL RDW Coeff of John 14.8 H (11.5-14.5) % Plt Count 245 (130-400) K/uL MPV 10.3 (7.4-10.4) fL Immature Gran % (Auto) 0.4 % Neut % (Auto) 91.5 % Lymph % (Auto) 3.3 % [place] % (Auto) 4.6 % Eos % (Auto) 0.1 % Baso % (Auto) 0.1 % Neut # (Auto) 11.79 H (1.4-6.5) K/uL Lymph # (Auto) 0.42 L (1.2-3.4) K/uL [place] # (Auto) 0.59 (0.11-0.59) K/uL Eos # (Auto) 0.01 (0-0.5) K/uL Baso # (Auto) 0.01 (0-0.2) K/uL Immature Gran # (Auto) 0.05 H (0.00-0.02) K/uL PT Cancelled INR Cancelled Sodium (136-145) mmol/L Potassium (3.5-5.1) mmol/L Chloride (98-107) mmol/L Carbon Dioxide (21-32) mmol/L Anion Gap (3-11) BUN (7-18) mg/dl Creatinine (0.6-1.4) mg/dl Est Cr Clr Drug Dosing ml/min Est GFR ( Amer) Est GFR (Non-Af Amer) BUN/Creatinine Ratio (10-20) Glucose (70-99) mg/dl Lactate (0.4-2.0) mmol/L Calcium (8.5-10.1) mg/dl Magnesium (1.8-2.4) mg/dl Total Bilirubin (0.2-1) mg/dl AST (15-37) U/L ALT (12-78) U/L Alkaline Phosphatase (45-117) U/L Total Creatine Kinase (39-308) U/L Troponin I (0-0.045) ng/ml Total Protein (6.4-8.2) gm/dl Albumin (3.4-5.0) gm/dl Globulin (2.5-4.0) gm/dl Albumin/Globulin Ratio (0.9-2) TSH (0.300-4.500) uIu/ml Urine Color Urine Appearance (Clear) Urine pH (4.5-7.5) Ur Specific [place] (1.000-1.030) Urine Protein (Negative) Urine Glucose (UA) (Negative) Urine Ketones (Negative) Urine Blood (Negative) Urine Nitrite (Negative) Urine Bilirubin (Negative) Urine Urobilinogen (Negative) Ur Leukocyte Esterase (Negative) Urine WBC (Auto) (0-5) /hpf Urine RBC (Auto) (0-4) /hpf U Hyaline Cast (Auto) (0-5) /lpf U Epithel Cells (Auto) (0-5) /lpf Urine Bacteria (Auto) (Negative) Ur Renal Epithelial Cell Calcium Oxalate Crystal (None Prsent) Urine Mucus (None Prsent) Urine Yeast COVID-19 Eval Order SARS-CoV-2, RNA, NAAT (NEGATIVE) Blood Type AB Negative Antibody Screen NEGATIVE 05/14/20 05/14/20 05/14/20 Range/Units 18:41 18:41 18:45 WBC (4.8-10.8) K/uL RBC (4.7-6.1) M/uL Hgb (14.0-18.0) g/dL Hct (42-52) % MCV (80-100) fL MCH (25-34) pg MCHC (32-36) g/dL RDW Std Deviation (36.4-46.3) fL RDW Coeff of John (11.5-14.5) % Plt Count (130-400) K/uL MPV (7.4-10.4) fL Immature Gran % (Auto) % Neut % (Auto) % Lymph % (Auto) % [place] % (Auto) % Eos % (Auto) % Baso % (Auto) % Neut # (Auto) (1.4-6.5) K/uL Lymph # (Auto) (1.2-3.4) K/uL [place] # (Auto) (0.11-0.59) K/uL Eos # (Auto) (0-0.5) K/uL Baso # (Auto) (0-0.2) K/uL Immature Gran # (Auto) (0.00-0.02) K/uL PT INR Sodium 139 (136-145) mmol/L Potassium 3.9 (3.5-5.1) mmol/L Chloride 101 (98-107) mmol/L Carbon Dioxide 27 (21-32) mmol/L Anion Gap 11.0 (3-11) BUN 35 H (7-18) mg/dl Creatinine 0.95 (0.6-1.4) mg/dl Est Cr Clr Drug Dosing 80.5 ml/min Est GFR ( Amer) 94.3 Est GFR (Non-Af Amer) 81.3 BUN/Creatinine Ratio 37.3 H (10-20) Glucose 168 H (70-99) mg/dl Lactate 2.3 H* (0.4-2.0) mmol/L Calcium 11.1 H (8.5-10.1) mg/dl Magnesium 2.1 (1.8-2.4) mg/dl Total Bilirubin 1.5 H (0.2-1) mg/dl AST 26 (15-37) U/L ALT 23 (12-78) U/L Alkaline Phosphatase 99 (45-117) U/L Total Creatine Kinase 426 H (39-308) U/L Troponin I < 0.015 (0-0.045) ng/ml Total Protein 7.9 (6.4-8.2) gm/dl Albumin 3.2 L (3.4-5.0) gm/dl Globulin 4.7 H (2.5-4.0) gm/dl Albumin/Globulin Ratio 0.7 L (0.9-2) TSH 0.704 (0.300-4.500) uIu/ml Urine Color Urine Appearance (Clear) Urine pH (4.5-7.5) Ur Specific [place] (1.000-1.030) Urine Protein (Negative) Urine Glucose (UA) (Negative) Urine Ketones (Negative) Urine Blood (Negative) Urine Nitrite (Negative) Urine Bilirubin (Negative) Urine Urobilinogen (Negative) Ur Leukocyte Esterase (Negative) Urine WBC (Auto) (0-5) /hpf Urine RBC (Auto) (0-4) /hpf U Hyaline Cast (Auto) (0-5) /lpf U Epithel Cells (Auto) (0-5) /lpf Urine Bacteria (Auto) (Negative) Ur Renal Epithelial Cell Calcium Oxalate Crystal (None Prsent) Urine Mucus (None Prsent) Urine Yeast COVID-19 Eval Order Covid19 [facility] SARS-CoV-2, RNA, NAAT (NEGATIVE) Blood Type Antibody Screen 05/14/20 05/14/20 05/14/20 Range/Units 18:45 19:00 20:18 WBC (4.8-10.8) K/uL RBC (4.7-6.1) M/uL Hgb (14.0-18.0) g/dL Hct (42-52) % MCV (80-100) fL MCH (25-34) pg MCHC (32-36) g/dL RDW Std Deviation (36.4-46.3) fL RDW Coeff of John (11.5-14.5) % Plt Count (130-400) K/uL MPV (7.4-10.4) fL Immature Gran % (Auto) % Neut % (Auto) % Lymph % (Auto) % [place] % (Auto) % Eos % (Auto) % Baso % (Auto) % Neut # (Auto) (1.4-6.5) K/uL Lymph # (Auto) (1.2-3.4) K/uL [place] # (Auto) (0.11-0.59) K/uL Eos # (Auto) (0-0.5) K/uL Baso # (Auto) (0-0.2) K/uL Immature Gran # (Auto) (0.00-0.02) K/uL PT 11.9 INR 1.1 Sodium (136-145) mmol/L Potassium (3.5-5.1) mmol/L Chloride (98-107) mmol/L Carbon Dioxide (21-32) mmol/L Anion Gap (3-11) BUN (7-18) mg/dl Creatinine (0.6-1.4) mg/dl Est Cr Clr Drug Dosing ml/min Est GFR ( Amer) Est GFR (Non-Af Amer) BUN/Creatinine Ratio (10-20) Glucose (70-99) mg/dl Lactate (0.4-2.0) mmol/L Calcium (8.5-10.1) mg/dl Magnesium (1.8-2.4) mg/dl Total Bilirubin (0.2-1) mg/dl AST (15-37) U/L ALT (12-78) U/L Alkaline Phosphatase (45-117) U/L Total Creatine Kinase (39-308) U/L Troponin I (0-0.045) ng/ml Total Protein (6.4-8.2) gm/dl Albumin (3.4-5.0) gm/dl Globulin (2.5-4.0) gm/dl Albumin/Globulin Ratio (0.9-2) TSH (0.300-4.500) uIu/ml Urine Color Dark Yellow Urine Appearance Clear (Clear) Urine pH 5.5 (4.5-7.5) Ur Specific [place] 1.029 (1.000-1.030) Urine Protein 3+ H (Negative) Urine Glucose (UA) Trace H (Negative) Urine Ketones 1+ H (Negative) Urine Blood 1+ H (Negative) Urine Nitrite Negative (Negative) Urine Bilirubin 1+ H (Negative) Urine Urobilinogen Negative (Negative) Ur Leukocyte Esterase Negative (Negative) Urine WBC (Auto) 1-5 (0-5) /hpf Urine RBC (Auto) 5-10 H (0-4) /hpf U Hyaline Cast (Auto) 1-5 (0-5) /lpf U Epithel Cells (Auto) >30 H (0-5) /lpf Urine Bacteria (Auto) Negative (Negative) Ur Renal Epithelial Cell Not Reportable Calcium Oxalate Crystal Present A (None Prsent) Urine Mucus Present A (None Prsent) Urine Yeast Not Reportable COVID-19 Eval Order SARS-CoV-2, RNA, NAAT NEGATIVE (NEGATIVE) Blood Type Antibody Screen Imaging Data Radiologist's Impression: CT scan of the cervical spine: IMPRESSION: 1. No acute cervical spine fracture or subluxation. 2. Clustered tiny nodules of the right lung apex measuring up to 4 mm favor an infectious or inflammatory process. 3. Multinodular goiter. CT scan of the head:IMPRESSION: 1. No acute posttraumatic intracranial abnormality or acute calvarial fracture. 2. Age-related involutional changes with chronic microvascular ischemic disease. 3. There is an ill-defined hypodensity of the periventricular left temporal occipital lobe which is new from 08/06/2017. This may simply reflect an area of progressive white matter disease, however a subacute infarct could appear similarly. IMPRESSION: 1. No acute posttraumatic fracture or dislocation of the left hip. 2. Ill-defined infiltrative lytic process with associated cortical thinning and erosions involves the posterior acetabulum measuring up to 2.5 cm in length. Mild associated cortical buckling is suspicious for an associated age- indeterminate pathologic fracture. Primary differential considerations would include lytic metastasis versus plasmacytoma. 3. Small left hip joint effusion. ECG Data Attestation: I personally reviewed and interpreted this ECG as follows: Indication: + weakness Rate (beats per minute): 119 Rhythm: + atrial fibrillation ECG ST segments: no ST elevation ECG Findings: no PVCs MDM Narrative Patient presents after being found on the floor at his home. He may have been on the floor up to 48 hours. He lives alone. His daughter checked on him this afternoon and found him on the floor. His exam suggests a left hip injury. He is hypertensive. Heart rate was 116. Respiratory rate was 26. He is afebrile with saturations are 96% on room air. Twelve-lead EKG shows A. fib at a rate of 119. Chest x-ray was negative for acute disease. White blood cell count was 12.8. Lactic acid level was slightly elevated 2.3. Glucose was 168. Urine did not show obvious infection. Total CK was 426. Troponin is negative. A CT scan of the head and cervical spine did not show acute traumatic injury. A CT scan of the left hip reveals a ill-defined infiltrative lytic process and a mild associated cortical buckling suspicious for associated age-indeterminate pathologic fracture. The patient will be seen by the hospitalist for further patient evaluation and care. He was given IV fluids during his ED stay. He did not require pain medication as long as his leg was not moved. Impression & Plan Hip fracture, pathological Discharge Plan Visit Data Chief Complaint: Fall Stated Complaint: FALL, HIP INJURY, ED Provider: Azael Becker Discharge Problem: Hip fracture, pathological Patient Disposition: Being Evaluated by Hospitalist Forms Stand Alone Forms: [facility], Virtual Emergency Department, Im portant Visit Information Prescriptions Prescriptions: No Action ferrous sulfate [Feosol] 325 mg (65 mg iron) Tablet 325 mg PO QAM RF: 0 atorvastatin 10 mg Tablet 10 mg PO DAILY RF: 0 carvedilol 25 mg Tablet 25 mg PO BID RF: 0 multivitamin [Multiple Vitamins] Tablet 1 tab PO DAILY RF: 0 diltiazem HCl [Cartia XT] 240 mg capsule,extended release 24hr 240 mg PO DAILY RF: 0 glipizide 5 mg tablet 5 mg PO DAILY RF: 0 aspirin 81 mg Tablet,Chewable 81 mg PO DAILY RF: 0 mycophenolate mofetil 250 mg capsule 500 mg PO BID RF: 0 omeprazole 20 mg capsule,delayed release(DR/EC) 20 mg PO DAILY RF: 0 valganciclovir 450 mg tablet 450 mg PO DAILY RF: 0 tacrolimus 0.5 mg capsule 0.5 mg PO AMPM RF: 0 albuterol sulfate 90 mcg/actuation HFA aerosol inhaler 2 inha INH Q4 PRN (Reason: Wheezing) RF: 0 rosuvastatin 5 mg tablet 5 mg PO DAILY RF: 0 Trelegy Ellipta 100-62.5-25 mcg Blister With Device 1 inh INHALATION DAILY RF: 0 Ozempic 0.25 mg or 0.5 mg(2 mg/1.5 mL) Pen Injector 0.5 mg SUBCUT WK RF: 0 prednisone 5 mg Tablet 5 mg PO BID RF: 0 sulfamethoxazole-trimethoprim [Bactrim] 400-80 mg Tablet 1 tab PO 3XWK RF: 0 Referrals Referrals: Donal Farrell MD [Primary Care Provider] - Discharge Problem: Hip fracture, pathological Qualifiers: Pathology associated with fracture: unspecified disease Encounter type: initial encounter Laterality: left Qualified Code(s): M84.452A - Pathological fracture, left femur, initial encounter for fracture
[2020-05-14 19:16] LABS: Alanine Aminotransferase 23 U/L (12-78); Albumin Level 3.2 gm/dl (3.4-5.0); Aspartate Aminotransferase 26 U/L (15-37); BUN Creatinine Ratio 37.3 (10-20); Blood Urea Nitrogen 35 mg/dl (7-18); Calcium 11.1 mg/dl (8.5-10.1); Carbon Dioxide 27 mmol/L (21-32); Chloride 101 mmol/L (98-107); Creatinine Clr Calc Pharmacy 80.5 ml/min; Est GFR (African American) 94.3; Est GFR (Non-African American) 81.3; Glucose 168 mg/dl (70-99); Magnesium 2.1 mg/dl (1.8-2.4); Potassium 3.9 mmol/L (3.5-5.1); Sodium 139 mmol/L (136-145)
[2020-05-14 19:21] LABS: Appearance Urine Clear (Clear); Bacteria Urine Automated Negative (Negative); Blood Urine 1+ (Negative); Color Urine Dark Yellow; Epithelial Cell Urine Auto >30 /lpf (0-5); Glucose Urine UA Trace (Negative); Ketones Urine 1+ (Negative); Leukocyte Esterase Urine Negative (Negative); Nitrite Urine Negative (Negative); Protein Urine 3+ (Negative); Specific Gravity Urine 1.029 (1.000-1.030); Urobilinogen Urine Negative (Negative); pH Urine 5.5 (4.5-7.5)
[2020-05-14 19:24] LABS: Bilirubin Urine 1+ (Negative)
[2020-05-14 19:27] LABS: Albumin Globulin Ratio 0.7 (0.9-2); Alkaline Phosphatase 99 U/L (45-117); Bilirubin,Total 1.5 mg/dl (0.2-1); Creatine Kinase 426 U/L (39-308); Globulin 4.7 gm/dl (2.5-4.0); Thyroid Stimulating Hormone 0.704 uIu/ml (0.300-4.500); Total Protein 7.9 gm/dl (6.4-8.2); Troponin I < 0.015 ng/ml (0-0.045)
[2020-05-14 19:36] LABS: Calcium Oxalate Crystals Urine Present (None Prsent); Mucus Urine Present (None Prsent)
--- NOTE | 2020-05-14 20:17 | CT Scan Report ---
CT head/brain wo con CLINICAL HISTORY: 69 years-old Male with fall. Acute head injury status post fall TECHNIQUE: Multiple axial CT images of the head were obtained without contrast. A dose lowering tech nique was utilized adhering to the principles of ALARA. CT DOSE: 1117.38 mGy.cm COMPARISON: CT cervical spine of same day, head CT 08/06/2017 FINDINGS: No acute intracranial hemorrhage, midline shift, intracranial mass, hydrocephalus, territorial ischem ia or abnormal extra-axial collection. Age-related involutional changes. White matter hypodensities r edemonstrated suggestive of chronic microvascular ischemic disease. Ill-defined periventricular hypod ensity measuring approximately 4.3 cm involves the left temporo-occipital distribution on image 11 se li 2 which is new from prior. Remote infarct of the right frontal lobe. Unchanged 8 mm calcificatio n abutting the falx cerebri. The calvarium is intact. The paranasal sinuses, mastoid air cells, and middle ear cavities are clear . IMPRESSION: 1. No acute posttraumatic intracranial abnormality or acute calvarial fracture. 2. Age-related involutional changes with chronic microvascular ischemic disease. 3. There is an ill-defined hypodensity of the periventricular left temporal occipital lobe which is n ew from 08/06/2017. This may simply reflect an area of progressive white matter disease, however a sub acute infarct could appear similarly. ACT 112: Negative or not required by law. The above report was generated using voice recognition software. It may contain grammatical, syntax o r spelling errors. Electronically signed by: Alcides Gray M.D. 05/14/2020 8:16 PM
--- NOTE | 2020-05-14 20:20 | CT Scan Report ---
CT cervical spine wo con CLINICAL HISTORY: 69 years-old Male with fall trauma. Acute head and neck injury status post fall COMPARISON: Head CT of same day TECHNIQUE: Multiple axial CT images of the cervical spine were obtained without contrast. A dose low ering technique was utilized adhering to the principles of ALARA. FINDINGS: Mild multilevel intervertebral disc space narrowing with moderate spondylitic spurring and facet arth rosis. There is no acute fracture or subluxation. Evaluation of the central canal and neuroforamina i s better assessed by MRI. Note is made of multilevel foraminal narrowing. Ill-defined sclerosis involving the left mandibular body is suggestive of osteitis. Mastoid air cells are clear. Partially imaged nodular densities of the right lung apex measuring up to 4 mm. There is no pneumothorax. No prevertebral edema. Multinodular thyroid. IMPRESSION: 1. No acute cervical spine fracture or subluxation. 2. Clustered tiny nodules of the right lung apex measuring up to 4 mm favor an infectious or inflamma tory process. 3. Multinodular goiter. ACT 112: Negative or not required by law. The above report was generated using voice recognition software. It may contain grammatical, syntax o r spelling errors. Electronically signed by: Alcides Gray M.D. 05/14/2020 8:19 PM
--- NOTE | 2020-05-14 20:34 | CT Scan Report ---
CT hip LT wo con HISTORY: 69 years-old Male fall acute left-sided hip pain status post fall COMPARISON: None TECHNIQUE: Multiple axial CT images of the left hip were obtained without the use of IV contrast. A d ose lowering technique was used consistent with the principals of CASA. FINDINGS: A Rain catheter is noted within a decompressed urinary bladder. Prostamegaly. No acute process of th e imaged intrapelvic structures. There is mild to moderate left hip osteoarthritis. Ill-defined infiltrative lytic process with associ ated cortical indistinctness/erosions involve the posterior acetabulum measuring up to 2.5 cm in marian th, nicely seen on image 114 series 2 and image 48 series 201. There is mild associated cortical hawkins ling of the posterior cortex which is best seen on coronal image 73. No acute fracture or dislocation of the left femur. No avascular necrosis. Small left hip joint effusion. IMPRESSION: 1. No acute posttraumatic fracture or dislocation of the left hip. 2. Ill-defined infiltrative lytic process with associated cortical thinning and erosions involves the posterior acetabulum measuring up to 2.5 cm in length. Mild associated cortical buckling is suspicio us for an associated age-indeterminate pathologic fracture. Primary differential considerations would include lytic metastasis versus plasmacytoma. 3. Small left hip joint effusion. ACT 112: Negative or not required by law. The above report was generated using voice recognition software. It may contain grammatical, syntax o r spelling errors. Electronically signed by: Alcides Gray M.D. 05/14/2020 8:32 PM
[2020-05-14 20:38] LABS: INR 1.1 (0.9-1.1); Prothrombin Time 11.9 Seconds (9.0-12.0)
[2020-05-14] MEDS ORDERED: METOPROLOL TARTRATE 1 MG/ML VIAL IV STA (20:55)
[2020-05-14] MEDS ORDERED: METOPROLOL TARTRATE 1 MG/ML VIAL IV ONE (20:57)
--- NOTE | 2020-05-14 21:50 | History & Physical Report ---
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 Related to pancreatic cysts chronic diastolic heart failure (EF 55 to 59%, TTE 2019), patient on the dry side nonobstructive CAD as per records, hypertension hx ANCA vasculitis status post plasmapheresis ESRD status post renal transplant on immunosuppression/antibiotic and antiviral regimen Hypercalcemia secondary to clinical dehydration, hyperparathyroidism as per records chronic anemia, hemoglobin better than baseline likely secondary to hemoconcentration COPD/pulmonary hypertension as per records, pulmonary status currently stable DM2 on oral medications, suboptimal control as of recent outpatient hemoglobin A1c of 8.17 February 2020 past tobacco abuse PCU Facilitate home Coreg, decrease maintenance dose to allow for cerebral perfusion given possible embolic CVA Neurochecks, stroke work-up consisting of TTE, carotid Dopplers, lipid profile Follow official MRI report in a.m. 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 SCDs RE possible brain tumor Full code for now as per patient sister/POA, Ms. Breann Bowers. She requests updates from providers through [phone]. Text document was generated using [employer] voice recognition software. It may contain grammatical or spelling errors. Kindly contact undersigned for clarification of any documentation item in question. History of Present Illness Chief Complaint: I'm okay as per patient. Found on the floor as per family Primary Care Provider: Donal Farrell MD History obtained from patient, family, and records. Medical history significant for chronic diastolic heart failure (EF 55 to 59%, TTE 2019), A. fib not on Coumadin secondary to history bleeding as per records, nonobstructive CAD as per records, hypertension, hyperlipidemia, ANCA vasculitis status post plasmapheresis, ESRD status post renal transplant on immunosuppression/antibiotic and antiviral regimen, hyperparathyroidism as per records, chronic anemia (baseline hemoglobin 10-11), COPD/pulmonary hypertension as per records, past tobacco abuse, history of pancreatic cyst, hx HCV, DM2 on oral medications, possible dementia as per family. Last confinement January 2018 for decompensated heart failure. Patient underwent renal transplant at [facility] last December 2019. Some confusion noted after recovery. Help needed with activities of daily living as per sister. Patient family worried about dementia given family history. Patient complaining of intermittent achy left hip pain symptoms per family the last 2 weeks. 2 days ago, patient family noted change in patient functionality at home where patient resides by himself.. Not able to take medications prepared for him. Patient found by sister on the ground at home today, covered with feces. Mentation at baseline as per sister. Intermittent left hip complaints as per EMS account. Patient denies chest pain, S OB, headache, syncope. Patient does not recall how he fell down. Patient noted to be in rapid A. fib upon arrival at the ER. 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 Recommend follow-up MRCP/abdominal MRI in 6 months to document stability and for continued surveillance. New and increased light lower lobe wedge-shaped opacities, differentials include nodular atelectasis, bacterial pneumonia, sequelae of infarct, organizing pneumonia. Follow-up MRI pancreas recommended by [facility] 10/2020. CT chest April 2020: To moderate size regions of consolidation right lower lobe and nodule right apex in conjunction with right hilar adenopathy and mild mediastinal adenopathy. Mild splenomegaly. Lymphoma is of main concern. Differential can include organizing pneumonia, cryptogenic or secondary, or sequela of vasculitis. 2018 colonoscopy small multiple diverticula, nonbleeding internal hemorrhoids. Surgical History : Kidney transplant, laparoscopy Family History : Dementia, DM, lung cancer Personal/Social history : Past tobacco abuse, no EtOH intake, retired [employer] employee Allergies Allergy/AdvReac Type Severity Reaction Status Date / Time oxycodone Allergy Intermediate HIVES Verified 05/14/20 23:26 Home Medications Medication Instructions Recorded Confirmed Type carvedilol 25 mg PO BID 02/03/18 05/14/20 History ferrous sulfate [Feosol] 325 mg PO QAM 02/03/18 05/14/20 History albuterol sulfate 2 inha INH Q4 PRN 03/30/20 05/14/20 History aspirin 81 mg PO DAILY 03/30/20 05/14/20 History diltiazem HCl [Cartia XT] 240 mg PO DAILY 03/30/20 05/14/20 History ygiazdpfgyh-ryhtjjkvg-ioapnwmi 1 inh INHALATION DAILY 03/30/20 05/14/20 History [Trelegy Ellipta] glipizide 5 mg PO QAM 03/30/20 05/14/20 History mycophenolate mofetil 500 mg PO BID 03/30/20 05/14/20 History omeprazole 20 mg PO DAILY 03/30/20 05/14/20 History prednisone 5 mg PO BID 03/30/20 05/14/20 History rosuvastatin 5 mg PO DAILY 03/30/20 05/14/20 History semaglutide [Ozempic] 1 mg SUBCUT WK 03/30/20 05/14/20 History sulfamethoxazole-trimethoprim 1 tab PO 3XWK 03/30/20 05/14/20 History [Bactrim] tacrolimus 1 mg PO AMPM 03/30/20 05/14/20 History valganciclovir 450 mg PO DAILY 03/30/20 05/14/20 History Past Med/Surg History Medical History (Updated 05/14/20 @ 20:55 by Azael Becker DO) 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 " Anemia Atrial fibrillation Bimalleolar fracture Bleeding of penis Cardiomyopathy CKD (chronic kidney disease), stage IV Dehydration Dislocation of right ankle joint Dyslipidemia HTN (hypertension) Hypertension Kidney stones Pulmonary hypertension Renal insufficiency SOB (shortness of breath) Family History Other No significant family history Social History Smoking Status: Unknown if ever smoked Hx Substance Use: No Preferred Language: Lithuanian Communication Ability: Effective Beliefs That Will Affect Care: None Current Living Situation: Alone Feels Safe at Home: Yes Assistive Devices: Oxygen - Continuous and Walker Review of Systems Review of Systems: Could not be reliably obtained Physical Exam Physical Exam: GENERAL: Disoriented, no respiratory distress SKIN: Pallor, warm HEENT: Bespectacled, pale palpebral conjunctivae, no ptosis, dry buccal mucosa NECK : Supple, no tenderness CHEST : CTA, no tenderness HEART : Irregular, tachycardic, no obvious murmurs ABDOMEN: Some distention, nontender EXTREMITIES : No LE swelling, left hip tenderness, no other conspicuous deformities noted NEUROLOGIC : Disoriented, no facial asymmetry, gait and stance not assessed Results & Data Results & Data ([facility] [place]) Vital Signs (Past 12 Hours) Vital Signs Temp Pulse Resp BP Pulse Ox 05/14/20 21:00 113 H 22 155/112 H 97 05/14/20 20:30 121 H 18 96 05/14/20 19:31 119 H 19 96 05/14/20 19:30 116 H 18 163/120 H 97 05/14/20 19:06 120 H 19 187/107 H 97 05/14/20 19:00 116 H 26 H 98 05/14/20 18:15 119 H 19 156/126 H 97 05/14/20 18:00 112 H 22 175/132 H 99 05/14/20 17:52 96 05/14/20 17:39 36.6 C 116 H 26 H 161/125 H 98 Laboratory Results Laboratory Results WBC 12.87 K/uL (4.8-10.8) H 05/14/20 18:41 RBC 5.13 M/uL (4.7-6.1) 05/14/20 18:41 Hgb 15.1 g/dL (14.0-18.0) 05/14/20 18:41 Hct 46.3 % (42-52) 05/14/20 18:41 MCV 90.3 fL (80-100) 05/14/20 18:41 MCH 29.4 pg (25-34) 05/14/20 18:41 MCHC 32.6 g/dL (32-36) 05/14/20 18:41 RDW Std Deviation 48.4 fL (36.4-46.3) H 05/14/20 18:41 RDW Coeff of John 14.8 % (11.5-14.5) H 05/14/20 18:41 Plt Count 245 K/uL (130-400) 05/14/20 18:41 MPV 10.3 fL (7.4-10.4) 05/14/20 18:41 Immature Gran % (Auto) 0.4 % 05/14/20 18:41 Neut % (Auto) 91.5 % 05/14/20 18:41 Lymph % (Auto) 3.3 % 05/14/20 18:41 [place] % (Auto) 4.6 % 05/14/20 18:41 Eos % (Auto) 0.1 % 05/14/20 18:41 Baso % (Auto) 0.1 % 05/14/20 18:41 Neut # (Auto) 11.79 K/uL (1.4-6.5) H 05/14/20 18:41 Lymph # (Auto) 0.42 K/uL (1.2-3.4) L 05/14/20 18:41 [place] # (Auto) 0.59 K/uL (0.11-0.59) 05/14/20 18:41 Eos # (Auto) 0.01 K/uL (0-0.5) 05/14/20 18:41 Baso # (Auto) 0.01 K/uL (0-0.2) 05/14/20 18:41 Immature Gran # (Auto) 0.05 K/uL (0.00-0.02) H 05/14/20 18:41 PT 11.9 Seconds (9.0-12.0) 05/14/20 20:18 INR 1.1 (0.9-1.1) 05/14/20 20:18 Sodium 139 mmol/L (136-145) 05/14/20 18:41 Potassium 3.9 mmol/L (3.5-5.1) 05/14/20 18:41 Chloride 101 mmol/L (98-107) 05/14/20 18:41 Carbon Dioxide 27 mmol/L (21-32) 05/14/20 18:41 Anion Gap 11.0 (3-11) 05/14/20 18:41 BUN 35 mg/dl (7-18) H 05/14/20 18:41 Creatinine 0.95 mg/dl (0.6-1.4) 05/14/20 18:41 Est Cr Clr Drug Dosing 80.5 ml/min 05/14/20 18:41 Est GFR ( Amer) 94.3 05/14/20 18:41 Est GFR (Non-Af Amer) 81.3 05/14/20 18:41 BUN/Creatinine Ratio 37.3 (10-20) H 05/14/20 18:41 Glucose 168 mg/dl (70-99) H 05/14/20 18:41 Lactate 2.3 mmol/L (0.4-2.0) H* 05/14/20 18:41 Calcium 11.1 mg/dl (8.5-10.1) H 05/14/20 18:41 Magnesium 2.1 mg/dl (1.8-2.4) 05/14/20 18:41 Total Bilirubin 1.5 mg/dl (0.2-1) H 05/14/20 18:41 AST 26 U/L (15-37) 05/14/20 18:41 ALT 23 U/L (12-78) 05/14/20 18:41 Alkaline Phosphatase 99 U/L (45-117) 05/14/20 18:41 Total Creatine Kinase 426 U/L (39-308) H 05/14/20 18:41 Troponin I < 0.015 ng/ml (0-0.045) 05/14/20 18:41 Total Protein 7.9 gm/dl (6.4-8.2) 05/14/20 18:41 Albumin 3.2 gm/dl (3.4-5.0) L 05/14/20 18:41 Globulin 4.7 gm/dl (2.5-4.0) H 05/14/20 18:41 Albumin/Globulin Ratio 0.7 (0.9-2) L 05/14/20 18:41 TSH 0.704 uIu/ml (0.300-4.500) 05/14/20 18:41 Urine Color Dark Yellow 05/14/20 19:00 Urine Appearance Clear (Clear) 05/14/20 19:00 Urine pH 5.5 (4.5-7.5) 05/14/20 19:00 Ur Specific [place] 1.029 (1.000-1.030) 05/14/20 19:00 Urine Protein 3+ (Negative) H 05/14/20 19:00 Urine Glucose (UA) Trace (Negative) H 05/14/20 19:00 Urine Ketones 1+ (Negative) H 12/30/20 19:00 Urine Blood 1+ (Negative) H 05/14/20 19:00 Urine Nitrite Negative (Negative) 05/14/20 19:00 Urine Bilirubin 1+ (Negative) H 05/14/20 19:00 Urine Urobilinogen Negative (Negative) 05/14/20 19:00 Ur Leukocyte Esterase Negative (Negative) 05/14/20 19:00 Urine WBC (Auto) 1-5 /hpf (0-5) 05/14/20 19:00 Urine RBC (Auto) 5-10 /hpf (0-4) H 05/14/20 19:00 U Hyaline Cast (Auto) 1-5 /lpf (0-5) 05/14/20 19:00 U Epithel Cells (Auto) >30 /lpf (0-5) H 05/14/20 19:00 Urine Bacteria (Auto) Negative (Negative) 05/14/20 19:00 Ur Renal Epithelial Cell Not Reportable 05/14/20 19:00 Calcium Oxalate Crystal Present (None Prsent) A 05/14/20 19:00 Urine Mucus Present (None Prsent) A 05/14/20 19:00 Urine Yeast Not Reportable 05/14/20 19:00 COVID-19 Eval Order Covid19 IDNow [facility] 05/14/20 18:45 SARS-CoV-2, RNA, NAAT NEGATIVE (NEGATIVE) 05/14/20 18:45 Blood Type AB Negative 05/14/20 18:41 Antibody Screen NEGATIVE 05/14/20 18:[address] head: 1. No acute posttraumatic intracranial abnormality or acute calvarial fracture. 2. Age-related involutional changes with chronic microvascular ischemic disease. 3. There is an ill-defined hypodensity of the periventricular left temporal occipital lobe which is new from 08/06/2017. This may simply reflect an area of progressive white matter disease, however a subacute infarct could appear similarly. CT cervical spine: 1. No acute cervical spine fracture or subluxation. 2. Clustered tiny nodules of the right lung apex measuring up to 4 mm favor an infectious or inflammatory process. 3. Multinodular goiter. CT left hip: 1. No acute posttraumatic fracture or dislocation of the left hip. 2. Ill-defined infiltrative lytic process with associated cortical thinning and erosions involves the posterior acetabulum measuring up to 2.5 cm in length. Mild associated cortical buckling is suspicious for an associated age- indeterminate pathologic fracture. Primary differential considerations would include lytic metastasis versus plasmacytoma. 3. Small left hip joint effusion. Chest x-ray : No acute process Brain MRI initial read: Multiple small foci of diffusion restriction involving the left temporal occipital region, right temporal occipital region, left parietal lobe and bilateral frontal lobes posteriorly suspicious for multiple small acute infarcts. Left temporal occipital fossa are within a moderate size region of vasogenic edema and foci of diffusion restriction largely correspond to suspected partially cystic lesion measuring 1 cm. Recommend further evaluation with postcontrast images to further evaluate for mass/metastatic disease in this region. MRA head initial read: No evidence of vessel occlusion or aneurysm. EKG as per my interpretation : Rate 120, A. fib, LAD, LAFB, T wave abnormalities lateral leads
[2020-05-14 22:48] LABS: Calcium 9.8 mg/dl (8.5-10.1)
[2020-05-14 22:53] LABS: Phosphorus 2.8 mg/dl (2.5-4.9)
[2020-05-15] MEDS ORDERED: METOPROLOL TARTRATE 1 MG/ML VIAL IV STA ×3 (00:16→06:21)
[2020-05-15] MEDS ORDERED: GLUCOSE 40% GEL 15 GM TUBE PO PRN ×2 (01:14)
[2020-05-15] MEDS ORDERED: CARBOHYDRATES FOR HYPOGLYCEMIA PO PRN ×2 (01:14)
[2020-05-15] MEDS ORDERED: GLUCAGON FOR INJ 1 MG VIAL SQ PRN ×2 (01:14)
[2020-05-15] MEDS ORDERED: ACETAMINOPHEN 325 MG TAB PO PRN (01:14)
[2020-05-15] MEDS ORDERED: DEXTROSE 50% 50 ML SYRINGE IV PRN ×2 (01:14)
[2020-05-15] MEDS ORDERED: GLUCOSE 10 TABS/TUBE PO PRN ×2 (01:14)
[2020-05-15] MEDS ORDERED: INSULIN GLARGINE SOLOSTAR 100 UNITS/ML 3 ML PEN SC STA (01:14)
[2020-05-15] MEDS: INSULIN ASPART 100 UNITS/ML 3 ML PEN SC SCH ×5 (03:31→20:18)
[2020-05-15] MEDS ORDERED: METOPROLOL TARTRATE 1 MG/ML VIAL IV ONE (03:35)
[2020-05-15] MEDS: TACROLIMUS 1 MG CAP PO SCH ×3 (03:45→20:12)
[2020-05-15] MEDS: MYCOPHENOLATE MOFETIL 250 MG CAP PO SCH ×3 (03:45→20:12)
[2020-05-15] MEDS: predniSONE 5 MG TAB PO SCH ×3 (03:45→20:12)
[2020-05-15] MEDS: HEPARIN SOD 5,000 UNIT/0.5 ML VIAL SQ SCH ×2 (05:28→14:34)
[2020-05-15] MEDS ORDERED: INFLUENZA VACCINE HIGH DOSE 65+ 0.7 ML SYR IM ONE (06:00)
[2020-05-15] MEDS ORDERED: PNEUMOCOCCAL Polysaccharide Vaccine 25mcg/0.5mL vial/Syr IM ONE (06:00)
[2020-05-15] MEDS ORDERED: LACTATED RINGER'S 1,000 ML IV ONE (06:21)
--- NOTE | 2020-05-15 07:21 | Magnetic Resonance Report ---
Brain MRA HISTORY: Abnormal head CT. Altered mental status. TECHNIQUE: 3-D [id number] MRA of the brain was performed without contrast. COMPARISON STUDY: None. FINDINGS: Scattered areas of symmetric diminished perfusion is likely due to motion artifact. Otherwi se the intracranial internal carotid arteries, distal vertebral arteries, and basilar artery are wide ly patent. 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 IMPRESSION: No significant stenosis, occlusion, or aneurysm within the [place] [employer] [place]. ACT 112: Negative or not required by law. Electronically signed by: Cristopher Silveira M.D. 05/15/2020 7:19 AM
--- NOTE | 2020-05-15 07:37 | Magnetic Resonance Report ---
MRI OF THE BRAIN WITHOUT CONTRAST CLINICAL HISTORY: Abnormal head CT. Recent fall. COMPARISON STUDY: MRI of the brain June 10, 2010. Head CT May 14, 2020. TECHNIQUE: Utilizing a 1.5 Sasha magnet and dedicated coil, multiplanar, multiecho imaging of the bra in was performed without IV contrast. FINDINGS: Note is made of numerous small foci of restricted diffusion. The largest is within the left temporooccipital region. Note is made of corresponding cystic appearing foci that measure up to 1.1 cm. These are predominantly T2 hyperintense. There is moderate associated vasogenic edema. This corre sponds to the finding on head CT performed earlier today. Ventricular dilatation is likely due to atr ophy. Basal cisterns are patent. There are no extra axial collections. Note is made of an indetermina te 1.1 cm T2 hyperintense focus within the left aspect of the brainstem extending into the cerebellar peduncle. Calvarial signal is normal. Mild sphenoid sinus mucosal thickening is noted. Orbits are un remarkable. There is moderate atrophy. IMPRESSION: Numerous small foci of restricted diffusion, the largest of which is within the left tem porooccipital region with moderate associated vasogenic edema. This corresponds to the finding on hea d CT. Associated restricted diffusion. The appearance is nonspecific however an infectious process wi th multiple abscesses is favored given restricted diffusion. Acute to subacute embolic infarcts could appear similar. Metastatic disease is also within the differential but considered less likely. A fol low-up contrast-enhanced MRI of the brain is recommended. This finding will be called/faxed to the or dering provider at time of dictation. ACT 112: Negative or not required by law. Electronically signed by: Jorge Mckee M.D. 05/15/2020 7:36 AM
[2020-05-15 08:02] LABS: INR 1.2 (0.9-1.1); Prothrombin Time 12.1 Seconds (9.0-12.0)
[2020-05-15] MEDS ORDERED: METOPROLOL TARTRATE 1 MG/ML VIAL IV PRN (08:04)
[2020-05-15] MEDS: ASPIRIN 81 MG ECTAB PO SCH (08:23)
[2020-05-15] MEDS: FERROUS SULFATE 325 MG TAB PO SCH (08:23)
[2020-05-15] MEDS: PANTOprazole 40 MG TAB PO SCH (08:23)
[2020-05-15 08:24] LABS: Chol HDL Ratio 2; Cholesterol 81 mg/dl (0-200); Creatine Kinase 191 U/L (39-308); HDL Cholesterol 34 mg/dl; LDL Cholesterol Calculated 31 mg/dl; Triglycerides 81 mg/dl (0-150); VLDL Cholesterol 16 mg/dl
[2020-05-15] MEDS: dilTIAZem HCL 240 MG CAPCR PO SCH (08:24)
[2020-05-15] MEDS: FLUTICASONE FUROATE 100MCG 14 PUFFS/INHALER INH SCH (08:24)
[2020-05-15] MEDS: UMECLIDINIUM/VILANTEROL 62.5/25MCG 7 PUFFS/INHALER INH SCH (08:25)
[2020-05-15] MEDS ORDERED: carvediloL 3.125 MG TAB PO SCH (09:00)
[2020-05-15] MEDS ORDERED: carvediloL 25 MG TAB PO SCH (09:00)
[2020-05-15] MEDS ORDERED: ACETAMINOPHEN 1,000 MG/100 ML VIAL IV STA (09:30)
--- NOTE | 2020-05-15 11:15 | Electrocardiogram Report ---
Test Reason : Blood Pressure : / mmHG Vent. Rate : 119 BPM Atrial Rate : 119 BPM P-R Int : 000 ms QRS Dur : 124 ms QT Int : 312 ms P-R-T Axes : 000 -69 109 degrees QTc Int : 438 ms Atrial fibrillation with rapid ventricular response Left axis deviation Non-specific intra-ventricular conduction delay Abnormal ECG When compared with ECG of 03-FEB-2018 08:36, Non-specific intra-ventricular conduction delay has replaced Left bundle branch block Confirmed by Tayo Jeffers ([id number]) on 05/15/2020 11:14:45 AM Referred By: REFERRED SELF Confirmed By:Thaddeus Jeffers
[2020-05-15] MEDS ORDERED: GADOBUTROL 30ML VIAL IV ONE (14:22)
[2020-05-15] MEDS: carvediloL 25 MG TAB PO SCH ×2 (14:49→20:11)
--- NOTE | 2020-05-15 14:53 | Magnetic Resonance Report ---
MRI OF THE BRAIN COMBO CLINICAL HISTORY: Follow-up abnormal MRI of the brain. COMPARISON STUDY: Unenhanced MRI of the brain and CT of the brain dated 05/14/2020. TECHNIQUE: MRI of the brain was performed utilizing various T1 and T2-weighted sequences in the axial , sagittal, and coronal planes. Contrast-enhanced sequences were acquired following the administratio n of 7.5 cc of Gadavist. FINDINGS: Brain parenchyma: There is age-related involutional change noting moderate confluent subcortical and periventricular microangiopathic disease. There is no evidence of hemorrhage. There is no restricted diffusion typical for acute ischemia. There are numerous (greater than 10) ring-enhancing parenchymal lesions identified. The largest lesion is present in the left occipital cortex and measures up to 1. 5 cm. There is significant surrounding edema, and these lesions show markedly restricted diffusion. A dditional clustered lesions are seen within the supraventricular white matter bilaterally. Smaller le sions are seen within the high right parietal cortex, the right temporal lobe, the high right frontal cortex, the kierra, and the left cerebral hemisphere. No midline shift is identified. No extra-axial f luid collection is seen. The cerebellar tonsils are normal in configuration. Ventricles, sulci, and cisterns: Prominent secondary to involutional change. Pituitary and sella: Unremarkable. Intracranial vasculature: Normal flow voids are maintained at the skull base. Orbits: The bony orbits are grossly intact. Orbital contents are normal in appearance. Sinuses and mastoids: Moderate mucosal thickening is noted in the sphenoid sinuses. The remaining par anasal sinuses are clear, as are the mastoid air cells. Calvarium: Unremarkable. Cervical cord: Partially visualized cervical spinal cord is normal in morphology and signal intensity . IMPRESSION: 1. There are numerous (greater than 10) ring-enhancing parenchymal lesions as above with significant surrounding edema. These lesions show markedly restricted diffusion, and the appearance strongly favo rs numerous abscesses, possibly related to septic emboli. Metastatic disease is a differential consid eration but considered less likely. Clinical correlation will be essential. 2. There is no hemorrhage, midline shift, or restricted diffusion typical for acute territorial ische denis. ACT 112: Negative or not required by law. Electronically signed by: Deric Martino M.D. 05/15/2020 2:52 PM
--- NOTE | 2020-05-15 15:22 | Neurology Consultation ---
Date of Consultation May 15, 2020 Assessment & Plan (1) Hip fracture, pathological: 1. work up with MRI hip for better definition of fracture 2. aspiration of fluid may be best option to sort out Present on Admission?: Yes (2) Atrial fibrillation: 1. cardiology for further recommendation- no coagulation due to previous pulmonary hemorrhage 2. aspirin 81 mg 3. sed rate added for tomorrow am (3) Brain lesion: 1. MRI brain- numerous ring -enhancing parenchymal lesion with surrounding edema 2. MRA no significant stenosis or occlusion 3. TTE- EF 55-60% no ASD 4. PT/OT for discharge needs Supervising Physician Co-Signing Physician Notes I have seen and discussed above patient with Dr Huong Poe, neurology Pt seen and examined,. Discussed with radiology radiographic findings and with Dr Mitchell. Pertinent hx of ANCA vasculitis "resolved" recent renal transplant on immunosuppression, a fib. Admitted with change in MS. MRI brain with multiple ring enhancing lesion with abnl flair suggestive of multiple abscess>> mets. L hip is abnl on CT and MRI hip to be done. Echo no vegetation.WBC elevated, afebrile. BC pending. Denies WEBER, admits to left hip pain,Pt is awake mildly sleeply follows simple commands.No field cut, no facial asymm. Query LUE drift with decreased MEG, rle moves volitionally, LLE avoids sec to pain. Feet warm, no embolic phen noted fingers, toes. Global enceph likely related to poss sepsis, mult ring enhancing lesions, P await blood cultures, repeat culture if febrile, esr. Eval L hip as to whether an aspiration for culture or for biopsy.A LP could be performed, but may be low yield given absence of meningeal enhancement and lack of communication of the lesions with the cortex or ventricular surface. Rec discussion with ID given immunosuppressed status. RENITA Poe MD History of Present Illness Reason for Consultation: stroke Requesting Physician: Breana Mitchell MD Attending Physician: Breana Mitchell MD History of Present Illness Babatunde villafuerte is a 69 year old male with PMH CHF, A fib not on anticoagulation, kidney stones, renal insufficiency, HTN, anemia, SOB, CKD stage IV, dyslipidemia, ANCA positive vasculitis with pulmonary hemorrhage. He presents to the ED with a chief complaint of a fall which he does not remember and does not remember anything prior to the fall. He was last see well around 6 PM 2 days prior to presenting to the hospital. It is unclear when he fell his daughter checked on him in the evening and found him on the floor laying in feces. His main area of pain is the left hip. He does have a history of kidney transplant in December. He has a long history if a fib but has not been on anticoagulation due to a pulmonary bleed. He is not oriented to hospital but does know he is in [place]. denies CP, SOB, abdominal pain, headache, + vision changes. Allergies Allergy/AdvReac Type Severity Reaction Status Date / Time oxycodone Allergy Intermediate HIVES Verified 05/14/20 23:26 Home Medications Medication Instructions Recorded Confirmed Type carvedilol 25 mg PO BID 02/03/18 05/14/20 History ferrous sulfate [Feosol] 325 mg PO QAM 02/03/18 05/14/20 History albuterol sulfate 2 inha INH Q4 PRN 03/30/20 05/14/20 History aspirin 81 mg PO DAILY 03/30/20 05/14/20 History diltiazem HCl [Cartia XT] 240 mg PO DAILY 03/30/20 05/14/20 History sgdwhpmzivb-pceegpsdl-eehiafbe 1 inh INHALATION DAILY 03/30/20 05/14/20 History [Trelegy Ellipta] glipizide 5 mg PO QAM 03/30/20 05/14/20 History mycophenolate mofetil 500 mg PO BID 03/30/20 05/14/20 History omeprazole 20 mg PO DAILY 03/30/20 05/14/20 History prednisone 5 mg PO BID 03/30/20 05/14/20 History rosuvastatin 5 mg PO DAILY 03/30/20 05/14/20 History semaglutide [Ozempic] 1 mg SUBCUT WK 03/30/20 05/14/20 History sulfamethoxazole-trimethoprim 1 tab PO 3XWK 03/30/20 05/14/20 History [Bactrim] tacrolimus 1 mg PO AMPM 03/30/20 05/14/20 History valganciclovir 450 mg PO DAILY 03/30/20 05/14/20 History Patient History Medical History (Updated 05/15/20 @ 16:15 by Saroj Thakkar DO) 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 " Anemia Atrial fibrillation Bimalleolar fracture Bleeding of penis Cardiomyopathy CKD (chronic kidney disease), stage IV Dehydration Dislocation of right ankle joint Dyslipidemia HTN (hypertension) Hypertension Kidney stones Pulmonary hypertension Renal insufficiency SOB (shortness of breath) Family History Other No significant family history Social History Smoking Status: Unknown if ever smoked Hx Substance Use: No Preferred Language: Hungarian Communication Ability: Effective Beliefs That Will Affect Care: None Current Living Situation: Alone Feels Safe at Home: Yes Assistive Devices: None Review of Systems Review of Systems: All systems reviewed & are unremarkable except as noted in HPI & below and All systems reviewed & are unremarkable except as noted in Subje ctive Physical Exam Physical Exam: Physical Exam: Constitutional: appearance over nourished Ears, Nose, Mouth and Throat: mucous membranes moist, no injection and skin normal, eyes normal Cardiovascular: irregular Respiratory: course breath sounds Musculoskeletal: no peripheral edema Skin: no stigmata of neurocutaneous disease noted and normal and intact Eyes: extraocular muscles intact (EOMI) and pupils equal, round and reactive to light (PERRL), gross peripheral vision intact NEUROLOGIC EXAMINATION: Mental status: Alert and interactive Oriented [place], not hospital, can say no ifs ands buts, thumb, button Oriented to person Speech fluent with no evidence of aphasia Cranial Nerves facial symmetry, raises eye brows equally Reflexes: Deep tendon reflexes were symmetrical and graded 2/5. down going toes Sensory: decrease sensation to light touch left le Coordination: finger to nose unable to touch finger bilaterally Gait/Stance: Posture lying in bed, unable to lift left leg secondary to pain Motor: Negative for pronator drift of out stretched arms with eyes closed. Strength: biceps triceps hand environmental health officer 5/5 bilaterally hip flex right 4/5, planter flex ext 5/5, left 0/5 restricted due to pain Results & Data ([facility]) Vital Signs (Past 12 Hours) Vital Signs Temp Pulse Pulse Resp BP BP Pulse Ox 05/15/20 12:10 36.8 C 122 H 17 149/104 H 95 05/15/20 10:28 139 H 05/15/20 09:21 173 H 05/15/20 07:29 36.4 C L 109 H 22 149/83 H 96 05/15/20 06:37 147 H 147/86 H 05/15/20 06:25 141 H 147/86 H 05/15/20 03:44 144 H 168/120 H 05/15/20 03:28 36.5 C 100 H 18 157/86 H 97 Laboratory Results Abnormal lab results 05/14/20 05/14/20 05/14/20 Range/Units 18:41 18:41 18:41 WBC 12.87 H (4.8-10.8) K/uL RDW Std Deviation 48.4 H (36.4-46.3) fL RDW Coeff of John 14.8 H (11.5-14.5) % Neut # (Auto) 11.79 H (1.4-6.5) K/uL Lymph # (Auto) 0.42 L (1.2-3.4) K/uL Immature Gran # (Auto) 0.05 H (0.00-0.02) K/uL PT (9.0-12.0) Seconds INR (0.9-1.1) BUN 35 H (7-18) mg/dl BUN/Creatinine Ratio 37.3 H (10-20) Glucose 168 H (70-99) mg/dl POC Glucose (70-99) mg/dl Lactate 2.3 H* (0.4-2.0) mmol/L Calcium 11.1 H (8.5-10.1) mg/dl Total Bilirubin 1.5 H (0.2-1) mg/dl Total Creatine Kinase 426 H (39-308) U/L Albumin 3.2 L (3.4-5.0) gm/dl Globulin 4.7 H (2.5-4.0) gm/dl Albumin/Globulin Ratio 0.7 L (0.9-2) PTH Intact (18.4-80.1) pg/ml Urine Protein (Negative) Urine Glucose (UA) (Negative) Urine Ketones (Negative) Urine Blood (Negative) Urine Bilirubin (Negative) Urine RBC (Auto) (0-4) /hpf U Epithel Cells (Auto) (0-5) /lpf Calcium Oxalate Crystal (None Prsent) Urine Mucus (None Prsent) 1205/14/20 05/15/20 Range/Units 19:00 22:26 01:24 WBC (4.8-10.8) K/uL RDW Std Deviation (36.4-46.3) fL RDW Coeff of John (11.5-14.5) % Neut # (Auto) (1.4-6.5) K/uL Lymph # (Auto) (1.2-3.4) K/uL Immature Gran # (Auto) (0.00-0.02) K/uL PT (9.0-12.0) Seconds INR (0.9-1.1) BUN (7-18) mg/dl BUN/Creatinine Ratio (10-20) Glucose (70-99) mg/dl POC Glucose 165 H (70-99) mg/dl Lactate (0.4-2.0) mmol/L Calcium (8.5-10.1) mg/dl Total Bilirubin (0.2-1) mg/dl Total Creatine Kinase (39-308) U/L Albumin (3.4-5.0) gm/dl Globulin (2.5-4.0) gm/dl Albumin/Globulin Ratio (0.9-2) PTH Intact 98.0 H (18.4-80.1) pg/ml Urine Protein 3+ H (Negative) Urine Glucose (UA) Trace H (Negative) Urine Ketones 1+ H (Negative) Urine Blood 1+ H (Negative) Urine Bilirubin 1+ H (Negative) Urine RBC (Auto) 5-10 H (0-4) /hpf U Epithel Cells (Auto) >30 H (0-5) /lpf Calcium Oxalate Crystal Present A (None Prsent) Urine Mucus Present A (None Prsent) 05/15/20 05/15/20 05/15/20 Range/Units 07:15 07:16 11:18 WBC (4.8-10.8) K/uL RDW Std Deviation (36.4-46.3) fL RDW Coeff of John (11.5-14.5) % Neut # (Auto) (1.4-6.5) K/uL Lymph # (Auto) (1.2-3.4) K/uL Immature Gran # (Auto) (0.00-0.02) K/uL PT 12.1 H (9.0-12.0) Seconds INR 1.2 H (0.9-1.1) BUN (7-18) mg/dl BUN/Creatinine Ratio (10-20) Glucose (70-99) mg/dl POC Glucose 175 H 193 H (70-99) mg/dl Lactate (0.4-2.0) mmol/L Calcium (8.5-10.1) mg/dl Total Bilirubin (0.2-1) mg/dl Total Creatine Kinase (39-308) U/L Albumin (3.4-5.0) gm/dl Globulin (2.5-4.0) gm/dl Albumin/Globulin Ratio (0.9-2) PTH Intact (18.4-80.1) pg/ml Urine Protein (Negative) Urine Glucose (UA) (Negative) Urine Ketones (Negative) Urine Blood (Negative) Urine Bilirubin (Negative) Urine RBC (Auto) (0-4) /hpf U Epithel Cells (Auto) (0-5) /lpf Calcium Oxalate Crystal (None Prsent) Urine Mucus (None Prsent) Diagnostic Findings MRI brain with and without- There are numerous (greater than 10) ring-enhancing parenchymal lesions as above with significant surrounding edema. These lesions show markedly restricted diffusion, and the appearance strongly favors numerous abscesses, possibly related to septic emboli. Metastatic disease is a differential consideration but considered less likely. Clinical correlation will be essential. There is no hemorrhage, midline shift, or restricted diffusion typical for acute territorial ischemia. EF 55-60% no ASD CT left hip-No acute posttraumatic fracture or dislocation of the left hip. Ill- defined infiltrative lytic process with associated cortical thinning and erosions involves the posterior acetabulum measuring up to 2.5 cm in length. Mild associated cortical buckling is suspicious for an associated age- indeterminate pathologic fracture. Primary differential considerations would include lytic metastasis versus plasmacytoma. Small left hip joint effusion. MRA head-significant stenosis, occlusion, or aneurysm within the [place]. (1) Hip fracture, pathological Encounter type: initial encounter Laterality: left Pathology associated with fracture: unspecified disease Qualified Code(s): M84.452A - Pathological fracture, left femur, initial encounter for fracture
--- NOTE | 2020-05-15 15:53 | Cardiology Consultation ---
Date of Consultation May 15, 2020 Assessment & Plan (1) Brain abscess: (2) Atrial fibrillation: (3) ANCA-positive vasculitis: 69-year-old patient found on floor by family members and brought to the ED for further evaluation and treatment due to confusion. MRI suggestive of brain abs cess. Consider infectious disease evaluation. Blood cultures pending at this time. Continue broad-spectrum antibiotic therapy. Atrial fibrillation with rapid ventricular response noted on admission likely secondary to lack of medical therapy for 48 hours prior to admission and volume depletion. Heart rate improving with oral carvedilol and diltiazem. Continue IV hydration. Replace electrolytes as indicated. Patient remains asymptomatic from an atrial fibrillation perspective. Repeat echocardiogram demonstrates preserved LV systolic function without significant valvular pathology. Inj ection of agitated saline contrast reveals no intracardiac shunting. 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 Continue to telemetry during hospitalization. History of Present Illness Requesting Physician: Dr. Mitchell Attending Physician: Breana Mitchell MD History of Present Illness Patient seen and examined at the bedside. Found on floor by his family members. Reportedly, patient on the floor for more than 48 hours. He does not recall events leading to his hospitalization. Mental status has returned to baseline. Denies chest pain, palpitations, shortness of breath, lower extremity edema, orthopnea, PND, or claudication. He does not recall any syncopal episodes. Initially, concerns raised regarding possible embolic cerebrovascular accident, however, report of brain MRI with contrast suggest numerous cerebral abscesses. Patient carries a complex cardiovascular history of ANCA positive vasculitis with renal failure and alveolar hemorrhage, chronic atrial fibrillation, chronic diastolic heart failure, nonischemic cardiomyopathy with normalization of LV function, moderate nonobstructive CAD per prior cardiac catheterization, and moderate to severe pulmonary hypertension. He is followed in the cardiology clinic for the above-noted diagnosis. Anticoagulation discontinued in 2011 in the setting of acute ANCA vasculitis with pulmonary hemorrhage. Telemetry on admission demonstrates atrial fibrillation with rapid ventricular response. Patient has not taken any medications for 48 hours prior to present ation. Heart rate improving with addition of carvedilol and diltiazem. Allergies Allergy/AdvReac Type Severity Reaction Status Date / Time oxycodone Allergy Intermediate HIVES Verified 05/14/20 23:26 Home Medications Medication Instructions Recorded Confirmed Type carvedilol 25 mg PO BID 02/03/18 05/14/20 History ferrous sulfate [Feosol] 325 mg PO QAM 02/03/18 05/14/20 History albuterol sulfate 2 inha INH Q4 PRN 03/30/20 05/14/20 History aspirin 81 mg PO DAILY 03/30/20 05/14/20 History diltiazem HCl [Cartia XT] 240 mg PO DAILY 03/30/20 05/14/20 History vhsjpliflxc-azfggfcbe-gslhmtpv 1 inh INHALATION DAILY 03/30/20 05/14/20 History [Trelegy Ellipta] glipizide 5 mg PO QAM 03/30/20 05/14/20 History mycophenolate mofetil 500 mg PO BID 03/30/20 05/14/20 History omeprazole 20 mg PO DAILY 03/30/20 05/14/20 History prednisone 5 mg PO BID 03/30/20 05/14/20 History rosuvastatin 5 mg PO DAILY 03/30/20 05/14/20 History semaglutide [Ozempic] 1 mg SUBCUT WK 03/30/20 05/14/20 History sulfamethoxazole-trimethoprim 1 tab PO 3XWK 03/30/20 05/14/20 History [Bactrim] tacrolimus 1 mg PO AMPM 03/30/20 05/14/20 History valganciclovir 450 mg PO DAILY 03/30/20 05/14/20 History Patient History Medical History 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 " Anemia Atrial fibrillation Bimalleolar fracture Bleeding of penis Cardiomyopathy CKD (chronic kidney disease), stage IV Dehydration Dislocation of right ankle joint Dyslipidemia HTN (hypertension) Hypertension Kidney stones Pulmonary hypertension Renal insufficiency SOB (shortness of breath) Family History Other No significant family history Social History Smoking Status: Unknown if ever smoked Hx Substance Use: No Preferred Language: Mohawk Communication Ability: Effective Beliefs That Will Affect Care: None Current Living Situation: Alone Feels Safe at Home: Yes Assistive Devices: None Review of Systems Review of Systems: All systems reviewed & are unremarkable except as noted in Subjective Physical Exam Constitutional: well nourished, + acute distress and + disheveled Respiratory: no respiratory distress and no labored breathing Auscultation: lungs clear to auscultation bilaterally; no crackles, no rales, no rhonchi and no wheezes Cardiovascular: Rate/Rhythm: + irregularly irregular Heart Sounds: normal S1 and normal S2; no murmur Vessels: no JVD and no carotid bruit Extremities: no edema Gastrointestinal (Abdomen): Inspection/Auscultation: abdomen normal to inspection and normal bowel sounds; abdomen not distended Percussion/Palpation: abdomen soft; abdomen nontender, no guarding and abdomen not rigid Skin: no rashes, warm and dry Neurologic: CN's II-XI intact bilaterally and moves all extremities Motor/Sensory: no tremor Psychiatric: A+Ox3, euthymic affect Results & Data ([facility]) Vital Signs (Past 12 Hours) Vital Signs Temp Pulse Pulse Resp BP BP Pulse Ox 05/15/20 12:10 36.8 C 122 H 17 149/104 H 95 05/15/20 10:28 139 H 05/15/20 09:21 173 H 05/15/20 07:29 36.4 C L 109 H 22 149/83 H 96 05/15/20 06:37 147 H 147/86 H 05/15/20 06:25 141 H 147/86 H 05/15/20 03:44 144 H 168/120 H (1) Atrial fibrillation Atrial fibrillation type: permanent Qualified Code(s): I48.21 - Permanent atrial fibrillation
--- NOTE | 2020-05-15 17:36 | Hospitalist Progress Note ---
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 Echo showed mild concentric left ventricular hypertrophy. No left ventricle wall motion abnormality. No vegetation noted. Ejection fraction 55 to 60%. Rate improved Continue monitor in tele Altered mental status MRI head with contrast showed numerous (greater than 10) ring-enhancing pa renchymal lesions as above with significant surrounding edema. These lesions show markedly restricted diffusion, and the appearance strongly favors numerous abscesses, possibly related to septic emboli. no hemorrhage, midline shift, or restricted diffusion typical for acute territorial ischemia. Neurology on board No focal neuro deficit to suggest acute CVA ECHO showed no shunting and vegetation Case discussed with ID [facility] in [place] that recommended to get an LP since pt is immunocompromised that make the differential broad Will need to send fluid for Toxoplasma PCR, Cryptococcus, protein , cell count, glucose, AFB and Fungal culture, and oll the other regular CSF markers Case discussed with Neuro that plan to get the LP tomorrow Will hold on antibiotic for now, but if pt becomes toxic ID recommended Cefepime. Metronidazole and Vanco [employer] dose Will check Toxoplasma IGG and Cryptococcal antigen Continue monitor closely ANCA Vasculitis S/P plasmapheresis Renal transplant Creatinine stable Spoke to nephrology Dr. Rashid and pt renal wardrobe coordinator that ok with the MRI contrast Continue Tacrolimus and Mycophenolate and prednisone senior clinical data coordinator said that the progaft that was planning to start today, it can be started once discharge as outpatient Continue monitor BMP Left hip pain S/P fall CT hip showed Ill-defined infiltrative lytic process with associated cortical thinning and erosions involves the posterior acetabulum measuring up to 2.5 cm in length. Mild associated cortical buckling is suspicious for an associated age- indeterminate pathologic fracture. Primary differential considerations would include lytic metastasis versus plasmacytoma. Ortho on board and plan to get an MRI of the Hip PT/OT eval fall precaution Mild rhabdomyolysis secondary to fall CK 421 on admission Received IVF, CK normalized DM type 2 Last Hba1c 8.4 on 03/04 PO diabetes med on hold Continue insulin sliding scale Elevated WBC WBC on admission 12K need to look for any infection source such as brain abscess, Hip etiology Blood cx pending and procalcitonin normal Will hold on abx for now DVT px will hold on heparin subq for possible LP tomorrow CODE STATUS FULL CODE Disposition Sister/POA, Ms. Breann Bowers was notified She requests updates from providers through [phone]. Admission and Anticipated Discharge Date Admission Date: May 14, 2020 Subjective Pt was seen and examined Lying in bed with no distress, but confused He has some episodes of agitation today and pain spoke to her daughter and provide update to her Denies any chest pain, palpitation, dizziness, fever, SOB Physical Exam Physical Exam: General- No acute distress Head- atraumatic Eyes- PERRL, EOMI, ENT- oropharynx clear Neck- supple, no JVD Lungs- clear to auscultation Heart- irregular rhythm, +tachycardia Abdomen- normal bowel sounds, soft, nontender Extremities- no calf tenderness, Left hip pain Neuro- alert, oriented x 3; PERRL, EOMI; no facial palsy; no dysarthria Skin- warm & dry Results & Data Results & Data ([facility]) Vital Signs (Past 12 Hours) Vital Signs Temp Pulse Pulse Resp BP BP Pulse Ox 05/15/20 15:44 36.6 C 95 H 22 121/75 96 05/15/20 12:10 36.8 C 122 H 17 149/104 H 95 05/15/20 10:28 139 H 05/15/20 09:21 173 H 05/15/20 07:29 36.4 C L 109 H 22 149/83 H 96 05/15/20 06:37 147 H 147/86 H 05/15/20 06:25 141 H 147/86 H (1) Atrial fibrillation Atrial fibrillation type: permanent Qualified Code(s): I48.21 - Permanent atrial fibrillation
--- NOTE | 2020-05-15 19:01 | Ultrasound Report ---
ULTRASOUND OF THE CAROTID ARTERIES CLINICAL HISTORY: Change in mental status. COMPARISON STUDY: Carotid artery ultrasound dated 06/16/2010. TECHNIQUE: Real-time, grayscale, and color Doppler sonography of the carotid arteries is performed. I mages are reviewed in the transverse and longitudinal planes. FINDINGS: Blood pressures were not assessed due to limb restrictions. The carotid arteries are patent bilaterally and demonstrate antegrade flow. There is minimal atherosc lerotic plaque seen in the carotid bulbs. Normal doppler arterial waveforms are seen throughout. [facility] measurements are listed below. Common carotid peak systolic velocity (cm/sec): RIGHT: 68 LEFT: 52 ICA proximal peak systolic velocity (cm/sec): RIGHT: 28 LEFT: 32 ICA mid peak systolic velocity (cm/sec): RIGHT: 36 LEFT: 31 ICA distal peak systolic velocity (cm/sec): RIGHT: 37 LEFT: 27 ICA/CC peak systolic ratio: RIGHT: 0.5 LEFT: 0.6 Antegrade flow was shown in the vertebral arteries. The external carotid arteries are patent. IMPRESSION: 1. There is no sonographic evidence of hemodynamically significant stenosis in the right or left j[place] tid arterial system. 2. Antegrade flow is shown in the vertebral arteries. ACT 112: Negative or not required by law. Electronically signed by: Deric Martino M.D. 05/15/2020 7:00 PM
[2020-05-15] MEDS: INSULIN GLARGINE SOLOSTAR 100 UNITS/ML 3 ML PEN SC SCH (20:13)
--- NOTE | 2020-05-15 20:56 | Orthopedic Consultation ---
Date of Consultation May 15, 2020 Assessment & Plan (1) Hip fracture, pathological: Lytic left hip acetabular lesion concerning for pathologic fracture, age- indeterminate. Would like the patient to maintain nonweightbearing left lower extremity at this time. MRI with and without contrast left hip. Pain control. Infectious process also on the differential secondary to recent renal transplant and immune compromised. Thank you for the consultation. History of Present Illness Reason for Consultation: Left hip acetabular lesion Attending Physician: Breana Mitchell MD History of Present Illness The patient is a 69-year-old male with past medical history noted below who was admitted to [facility] secondary to being found down with mental status changes. Patient was found to be in A. fib and admitted for further evaluation and treatment. Patient complaining of left hip pain however more comfortable with pain medications. CT scan obtained concerning for lytic lesion of the left hip acetabulum. Patient denies history of cancer. Denies numbness and tingling to his left lower extremity or associated injuries. Allergies Allergy/AdvReac Type Severity Reaction Status Date / Time oxycodone Allergy Intermediate HIVES Verified 05/14/20 23:26 Home Medications Medication Instructions Recorded Confirmed Type carvedilol 25 mg PO BID 02/03/18 05/14/20 History ferrous sulfate [Feosol] 325 mg PO QAM 02/03/18 05/14/20 History albuterol sulfate 2 inha INH Q4 PRN 03/30/20 05/14/20 History aspirin 81 mg PO DAILY 03/30/20 05/14/20 History diltiazem HCl [Cartia XT] 240 mg PO DAILY 03/30/20 05/14/20 History lnmijdhagtx-rojrzrclf-rijotbyd 1 inh INHALATION DAILY 03/30/20 05/14/20 History [Trelegy Ellipta] glipizide 5 mg PO QAM 03/30/20 05/14/20 History mycophenolate mofetil 500 mg PO BID 03/30/20 05/14/20 History omeprazole 20 mg PO DAILY 03/30/20 05/14/20 History prednisone 5 mg PO BID 03/30/20 05/14/20 History rosuvastatin 5 mg PO DAILY 03/30/20 05/14/20 History semaglutide [Ozempic] 1 mg SUBCUT WK 03/30/20 05/14/20 History sulfamethoxazole-trimethoprim 1 tab PO 3XWK 03/30/20 05/14/20 History [Bactrim] tacrolimus 1 mg PO AMPM 03/30/20 05/14/20 History valganciclovir 450 mg PO DAILY 03/30/20 05/14/20 History Patient History Medical History 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 " Anemia Atrial fibrillation Bimalleolar fracture Bleeding of penis Cardiomyopathy CKD (chronic kidney disease), stage IV Dehydration Dislocation of right ankle joint Dyslipidemia HTN (hypertension) Hypertension Kidney stones Pulmonary hypertension Renal insufficiency SOB (shortness of breath) Family History Other No significant family history Social History Smoking Status: Unknown if ever smoked Hx Substance Use: No Preferred Language: Armenian Communication Ability: Effective Beliefs That Will Affect Care: None Current Living Situation: Alone Feels Safe at Home: Yes Assistive Devices: None Review of Systems Review of Systems: All systems reviewed & are unremarkable except as noted in HPI & below Constitutional: as per Subjective / HPI Physical Exam Physical Exam: Left lower extremity is neurovascular and sensory intact grossly, +2 dorsalis pedis pulse, compartment soft nontender, limited painful range of motion of left hip. Constitutional: WD/WN, vitals as above Results & Data ([facility]) Vital Signs (Past 12 Hours) Vital Signs Temp Pulse Pulse Resp BP Pulse Ox 05/15/20 15:44 36.6 C 95 H 22 121/75 96 05/15/20 12:10 36.8 C 122 H 17 149/104 H 95 05/15/20 10:28 139 H 05/15/20 09:[address] hip LT wo con HISTORY: 69 years-old Male fall acute left-sided hip pain status post fall COMPARISON: None TECHNIQUE: Multiple axial CT images of the left hip were obtained without the use of IV contrast. A dose lowering technique was used consistent with the principals of CASA. FINDINGS: A Rain catheter is noted within a decompressed urinary bladder. Prostamegaly. No acute process of the imaged intrapelvic structures. There is mild to moderate left hip osteoarthritis. Ill-defined infiltrative lytic process with associated cortical indistinctness/erosions involve the posterior acetabulum measuring up to 2.5 cm in length, nicely seen on image 114 series 2 and image 48 series 201. There is mild associated cortical buckling of the posterior cortex which is best seen on coronal image 73. No acute fracture or dislocation of the left femur. No avascular necrosis. Small left hip joint effusion. IMPRESSION: 1. No acute posttraumatic fracture or dislocation of the left hip. 2. Ill-defined infiltrative lytic process with associated cortical thinning and erosions involves the posterior acetabulum measuring up to 2.5 cm in length. Mild associated cortical buckling is suspicious for an associated age- indeterminate pathologic fracture. Primary differential considerations would include lytic metastasis versus plasmacytoma. 3. Small left hip joint effusion. (1) Hip fracture, pathological Encounter type: initial encounter Laterality: left Pathology associated with fracture: unspecified disease Qualified Code(s): M84.452A - Pathological fracture, left femur, initial encounter for fracture
[2020-05-16 07:46] LABS: BUN Creatinine Ratio 31.4 (10-20); Calcium 9.7 mg/dl (8.5-10.1); Creatinine Clr Calc Pharmacy 78.2 ml/min; Est GFR (African American) 93.1; Est GFR (Non-African American) 80.3
[2020-05-16 07:56] LABS: Hematocrit (blood only) 37.4 % (42-52); Hemoglobin 11.8 g/dL (14.0-18.0); Mean Corpuscular Hemoglobin 29.1 pg (25-34); Mean Corpuscular Hgb Conc 31.6 g/dL (32-36); Mean Corpuscular Volume 92.1 fL (80-100); Mean Platelet Volume 10.4 fL (7.4-10.4); Platelet Count 162 K/uL (130-400); RDW Coefficient of Variation 14.7 % (11.5-14.5); RDW Standard Deviation 49.6 fL (36.4-46.3); Red Blood Count 4.06 M/uL (4.7-6.1); White Blood Count 8.97 K/uL (4.8-10.8)
[2020-05-16] MEDS: MYCOPHENOLATE MOFETIL 250 MG CAP PO SCH ×2 (08:18→21:17)
[2020-05-16] MEDS: PANTOprazole 40 MG TAB PO SCH (08:18)
[2020-05-16] MEDS: predniSONE 5 MG TAB PO SCH ×2 (08:19→21:16)
[2020-05-16] MEDS: dilTIAZem HCL 240 MG CAPCR PO SCH (08:20)
[2020-05-16] MEDS: FERROUS SULFATE 325 MG TAB PO SCH (08:20)
[2020-05-16] MEDS: ASPIRIN 81 MG ECTAB PO SCH (08:20)
[2020-05-16] MEDS: carvediloL 25 MG TAB PO SCH ×2 (08:21→21:12)
[2020-05-16] MEDS: FLUTICASONE FUROATE 100MCG 14 PUFFS/INHALER INH SCH (08:21)
[2020-05-16] MEDS: INSULIN ASPART 100 UNITS/ML 3 ML PEN SC SCH ×4 (08:22→21:11)
[2020-05-16] MEDS ORDERED: SULFA/TRIMETH 400/80MG TAB PO SCH (09:00)
--- NOTE | 2020-05-16 11:20 | Progress Notes ---
DATE: 05/16/2020 SUBJECTIVE: I am seeing Mr. Gong for change in mental status after having been found unseen for 2 days. His MRI of the brain shows multiple ring enhancing lesions, which radiology is most suspicious of abscess or infection rather than tumor. The patient has had a renal transplant and is on immunosuppressive drugs. He continues to complain of left hip pain. His MRI of the hip has not yet been performed. This morning, the patient's white count is normal. His sed rate is 28, creatinine is normal, glucose 135. PHYSICAL EXAMINATION: VITAL SIGNS: 139/87, 91, 17, 36.5, 97% on room air. GENERAL: The patient is awake, alert. Mentation is very mildly slow. He is oriented to person, initially thinks he is in [employer] and then [facility]. Oriented to month, but has difficulty with the year. NECK: Supple. NEUROLOGIC: Pupils are equal. There is normal visual lee, facial symmetry. Speech is nondysarthric nor aphasic. Upper extremity strength appears symmetric, although there may be some minor left drift with left decreased rapid alternating movements. Right lower extremity is greater than antigravity. The patient will not voluntarily move the left lower extremity due to pain. His reflexes are mildly brisk in the lowers and his toes are downgoing. No sensory loss is noted [id number] to light touch. Invdmx-wk-[id number] is normal and toe tapping appears to be symmetric. IMPRESSION AND PLAN: This patient with atrial fibrillation, renal transplant status, has had a change in mentation, having been found down on the ground after not being seen for 2 days. MRI of the brain shows multiple ring enhancing lesions suspicious for abscess. Differential broad given immunosuppression and includes bacterial, fungal, cryotococcal, toxo, tuberculous, neoplatstic. Blood cultures today revealed no growth AND cryptococcal antigen test on blood was negative. Infectious disease has recommended a lumbar puncture, which I agree. I obtained consent from the patient's sister, Barbara Jordan. The patient was hesitant, but initially agreed to the procedure. He found that any movement of his leg caused pain and was not willing to proceed with lumbar puncture. We gave the patient some Tylenol and my recommendation to the hospitalist team, which I have communicated to Dr. Mitchell, is that the pain be managed and when the patient is in better pain control and agreeable, I will attempt a lumbar puncture again. I explained to the patient the importance of doing so that there is an infection in the brain and this may reveal the etiology of the infection and lead to a treatment. Without treatment, this could be life threatening. I believe the patient understands that. I think the procedure can be done with minimal discomfort to the patient once he is positioned adequately, but he was not willing to do so. Doing so under fluoroscopic guidance may be a very reasonable approach ut would also require some movement on the part of the pt. The procedure needs to be done as soon as possible. If the patient disagrees, he may need to be determined to be incompetent. At present, I believe he is competent to refuse the procedure based on pain. We will follow with you. SUZAN
[2020-05-16] MEDS: UMECLIDINIUM/VILANTEROL 62.5/25MCG 7 PUFFS/INHALER INH SCH (11:37)
--- NOTE | 2020-05-16 12:04 | Hospitalist Progress Note ---
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 Echo showed mild concentric left ventricular hypertrophy. No left ventricle wall motion abnormality. No vegetation noted. Ejection fraction 55 to 60%. Rate improved Continue monitor in tele Altered mental status MRI head with contrast showed numerous (greater than 10) ring-enhancing parenchymal lesions as above with significant surrounding edema. These lesions show markedly restricted diffusion, and the appearance strongly favors numerous abscesses, possibly related to septic emboli. no hemorrhage, midline shift, or restricted diffusion typical for acute territorial ischemia. Neurology on board No focal neuro deficit to suggest acute CVA ESR elevated ECHO showed no shunting and vegetation Case discussed with ID C in [place] that recommended to get an LP since pt is immunocompromised that make the differential broad Will need to send fluid for Toxoplasma PCR, Cryptococcus, protein , cell count, glucose, AFB and Fungal culture, and oll the other regular CSF markers Case discussed with Neuro that plan to get the LP tomorrow Will hold on antibiotic for now, but if pt becomes toxic, ID recommended Cefepime, Metronidazole and Vanco [employer] dose Collected plasma Toxoplasma IGG and Cryptococcal antigen - pending Neuro tried to get the LP done, but due to pain in his L hip, he was not able to sit to get the LP. Neuro will attempt later if pain control Continue monitor closely ANCA Vasculitis S/P plasmapheresis Renal transplant Creatinine stable at 0.[address] Rashid and pt renal multimedia coordinator that ok with the MRI contrast Continue Tacrolimus and Mycophenolate and prednisone park activities coordinator said that the progaft that was planning to start today, it can be started once discharge as outpatient Continue monitor BMP Left hip pain S/P fall CT hip showed Ill-defined infiltrative lytic process with associated cortical thinning and erosions involves the posterior acetabulum measuring up to 2.5 cm in length. Mild associated cortical buckling is suspicious for an associated age- indeterminate pathologic fracture. Primary differential considerations would include lytic metastasis versus plasmacytoma. Ortho on board and plan to get an MRI of the Hip PT/OT eval fall precaution Mild rhabdomyolysis secondary to fall CK 421 on admission Received IVF, CK normalized DM type 2 Last Hba1c 8.4 on 03/04 PO diabetes med on hold Continue insulin sliding scale Elevated WBC WBC on admission 12K, now normalized need to look for any infection source such as brain abscess, Hip etiology Blood cx no growth and procalcitonin normal Continue to hold on abx for now DVT px will hold on heparin subq for possible LP tomorrow CODE STATUS FULL CODE Disposition Sister/POA, Ms. Breann Bowers was notified She requests updates from providers through [phone]. Admission and Anticipated Discharge Date Admission Date: May 14, 2020 Subjective Pt was seen and examined for follow up on his mental status and hip pain Lying in bed with no distress Pt is more awake and his mental status improves compare to yesterday Neuro tried to get the LP done, but due to pain in his hip he was not able to sit to get the LP Pt said that he has pain in his left hip Denies any chest pain, palpitation, dizziness and SOB Physical Exam Physical Exam: General- No acute distress Head- atraumatic Eyes- PERRL, EOMI, ENT- oropharynx clear Neck- supple, no JVD Lungs- clear to auscultation Heart- irregular rhythm, +tachycardia Abdomen- normal bowel sounds, soft, nontender Extremities- no calf tenderness, Left hip pain with movement Neuro- alert, oriented x 3; PERRL, EOMI; no facial palsy; no dysarthria Skin- warm & dry Results & Data Results & [facility] ([facility]) Vital Signs (Past 12 Hours) Vital Signs Temp Pulse Pulse Resp BP Pulse Ox 05/16/20 07:00 36.5 C 91 H 17 139/87 97 05/16/20 03:47 36.8 C 89 18 130/78 99 (1) Atrial fibrillation Atrial fibrillation type: permanent Qualified Code(s): I48.21 - Permanent atrial fibrillation
--- NOTE | 2020-05-16 12:11 | Cardiology Progress Note ---
Date of Service May 16, 2020 Assessment & Plan (1) Brain abscess: (2) Atrial fibrillation: (3) ANCA-positive vasculitis: Management of cerebral abscess as per neurology, internal medicine, and infectious disease. Heart rate improved with calcium channel sylvain and beta-sylvain therapy. Continue carvedilol and diltiazem as previously ordered. Contraindications to chronic anticoagulation as previously documented. Admission and Anticipated Discharge Date Admission Date: May 14, 2020 Subjective Patient seen and examined at the bedside. More confused today. MRI reveals evidence of brain abscess. Heart rate improved with resumption of beta-sylvain and calcium channel sylvain therapy. Patient denies chest pain or shortness of breath. Review of Systems Review of Systems: Unobtainable due to cognitive status Physical Exam Constitutional: well nourished, + acute distress and + disheveled Respiratory: no respiratory distress and no labored breathing Auscultation: lungs clear to auscultation bilaterally; no crackles, no rales, no rhonchi and no wheezes Cardiovascular: Rate/Rhythm: + irregularly irregular Heart Sounds: normal S1 and normal S2; no murmur Vessels: no JVD and no carotid bruit Extremities: no edema Gastrointestinal (Abdomen): Inspection/Auscultation: abdomen normal to inspection and normal bowel sounds; abdomen not distended Percussion/Palpation: abdomen soft; abdomen nontender, no guarding and abdomen not rigid Skin: no rashes, warm and dry Neurologic: CN's II-XI intact bilaterally and moves all extremities Motor/Sensory: no tremor Psychiatric: A+Ox3, euthymic affect Results & Data ([facility]) Vital Signs (Past 12 Hours) Vital Signs Temp Pulse Pulse Resp BP Pulse Ox 05/16/20 12:00 36.7 C 98 H 19 148/88 H 96 05/16/20 07:00 36.5 C 91 H 17 139/87 97 05/16/20 03:47 36.8 C 89 18 130/78 99 (1) Atrial fibrillation Atrial fibrillation type: permanent Qualified Code(s): I48.21 - Permanent atrial fibrillation
[2020-05-16] MEDS: TACROLIMUS 1 MG CAP PO SCH ×2 (12:18→21:12)
[2020-05-16] MEDS: traMADol HCL 50 MG TABLET PO PRN (13:07)
[2020-05-16] MEDS: LIDOCAINE 5% 1 PATCH TD SCH (14:40)
[2020-05-16] MEDS ORDERED: HEPARIN SOD 5,000 UNIT/0.5 ML VIAL SQ ONE (20:00)
[2020-05-16] MEDS: INSULIN GLARGINE SOLOSTAR 100 UNITS/ML 3 ML PEN SC SCH (21:17)
[2020-05-17] MEDS ORDERED: OLANZapine 10 MG/2.1 ML SDV IM PRN (00:45)
[2020-05-17] MEDS: MoRPHine SULFATE 2 MG/ML CARP IV PRN ×2 (00:54→09:08)
[2020-05-17] MEDS: INSULIN ASPART 100 UNITS/ML 3 ML PEN SC SCH ×4 (08:35→20:05)
[2020-05-17] MEDS: predniSONE 5 MG TAB PO SCH ×2 (08:36→20:06)
[2020-05-17] MEDS: MYCOPHENOLATE MOFETIL 250 MG CAP PO SCH (08:36)
[2020-05-17] MEDS: TACROLIMUS 1 MG CAP PO SCH (08:36)
[2020-05-17] MEDS: carvediloL 25 MG TAB PO SCH (08:36)
[2020-05-17] MEDS: FERROUS SULFATE 325 MG TAB PO SCH (08:37)
[2020-05-17] MEDS: dilTIAZem HCL 240 MG CAPCR PO SCH (08:37)
[2020-05-17] MEDS: PANTOprazole 40 MG TAB PO SCH (08:37)
[2020-05-17] MEDS: ASPIRIN 81 MG ECTAB PO SCH (08:38)
[2020-05-17] MEDS: LIDOCAINE 5% 1 PATCH TD SCH (08:38)
[2020-05-17] MEDS: FLUTICASONE FUROATE 100MCG 14 PUFFS/INHALER INH SCH (08:39)
[2020-05-17] MEDS: UMECLIDINIUM/VILANTEROL 62.5/25MCG 7 PUFFS/INHALER INH SCH (08:40)
[2020-05-17] MEDS: traMADol HCL 50 MG TABLET PO PRN ×3 (08:51→20:08)
[2020-05-17] MEDS ORDERED: GADOBUTROL 65ML VIAL IV ONE (10:32)
--- NOTE | 2020-05-17 10:59 | Magnetic Resonance Report ---
MRI OF THE LEFT HIP COMBO CLINICAL HISTORY: Left hip pain. Abnormal CT. COMPARISON STUDY: CT scan of the left hip dated 05/14/2020. TECHNIQUE: MRI of the left hip is performed utilizing various T1 and T2-weighted sequences in the axi al, sagittal, coronal planes. Contrast-enhanced sequences are acquired following the IV administratio n of 7.5 cc of Gadavist. FINDINGS: There is marrow edema identified within the posterior aspect of the left acetabulum, corresponding to the abnormality seen on the recent CT scan. There is drop in signal on the T1-weighted sequences wit h associated abnormal postcontrast enhancement. There is likely pathologic fracture. Cortical destruc tion is again noted and the appearance is typical for osteomyelitis. Normal marrow signal intensity i s preserved throughout the remainder of the bony structures. Specifically, there is no marrow abnorma lity within the left proximal femur. There is no evidence of avascular necrosis of the femoral heads. There are bilateral hip joint effusions. There is associated synovial enhancement on the left, and th e appearance is consistent with a septic hip. No synovial enhancement is seen on the right. There is generalized atrophy of the regional musculature. There is extensive intramuscular edema iden tified within the left gluteal musculature. There is a multiloculated fluid collection within the lef t gluteus minimus muscle seen on axial image #11. This abuts the posterior acetabulum and measures ap proximately 4 x 2 cm. This is consistent with an abscess. There is also significant intramuscular rafael ma and nonspecific enhancement throughout the left adductor musculature as well as the left tensor fa scia latae muscle consistent with myositis. There is surrounding deep soft tissue fluid. There is foc al edema with a 9 mm round focus of abnormal enhancement within the right obturator internus muscle s een on axial image #15. This is also consistent with infection. There is a large complex, thick-walled, and peripherally enhancing fluid collection identified in the inferior left buttock along the gluteal crease at and below the level of the perianal soft tissues. This causes mild mass effect on the base of the penis and measures 7.7 x 8.9 x 5.2 cm. This is consis tent with abscess. The prostate gland is enlarged and heterogeneous noting median lobe hypertrophy. The bladder wall is thickened and trabeculated indicating chronic outlet obstruction. Small foci of intraluminal gas are likely related to recent instrumentation. The seminal vesicles are normal as imaged. The visualized b owel loops are normal in caliber. A right pelvic renal transplant is noted. There is no hydronephrosi s. No pelvic sidewall or inguinal adenopathy is seen. The origin of the hamstrings tendon is intact. IMPRESSION: 1. There is an approximately 9 cm fluid collection in the medial left buttock consistent with abscess . 2. There is evidence of osteomyelitis with associated pathologic fracture involving the left posterio r acetabulum. This corresponds to the abnormality is seen on the recent CT scan. 3. No additional foci of similar appearing marrow abnormality are identified throughout the hips or b [place] pelvis. Specifically, there is no marrow abnormality within the left proximal femur. 4. There is myositis of the left gluteal musculature with an approximately 4 x 2 cm abscess within th e gluteus minimus along the posterior aspect of the acetabulum. 4. Bilateral hip joint effusions with a septic left hip. 5. There is significant myositis involving the left thigh and adductor musculature consistent with my ositis. There is surrounding deep soft tissue fluid. Correlate clinically for evidence of associated fasciitis. 6. Edema and a tiny abscess is also identified within the right obturator internus muscle. Electronically signed by: Deric Martino M.D. 05/17/2020 10:57 AM
--- NOTE | 2020-05-17 13:05 | Progress Notes ---
DATE: 05/17/2020 SUBJECTIVE: I am seeing the patient in followup of change in mental status and having been found down. MRI showing what appears to be multiple abscesses. The patient had an MRI this morning, which shows a 9 cm fluid collection in the medial left buttock consistent with abscess, evidence of osteomyelitis associated pathological fracture involving the left posterior acetabulum. No additional foci of similarly appearing abnormal marrow noted through the hips or bony pelvis, myositis of the left gluteal musculature with a 4 x 2 abscess within the gluteus medius along the posterior aspect of the acetabulum, bilateral joint effusions with a septic left hip myositis in the left thigh, surrounding deep soft tissue fluid, correlate clinically for associated fasciitis, edema and a tiny abscess is also noted in the right obturator internus muscle. OBJECTIVE: GENERAL: The patient is awake and alert. Today, he indicates to me that he has had a headache for 3 days, a fact that he had previously denied. He is oriented to [facility], month, year. He is mildly slow and following commands and has difficulty with complex commands. He has no right/left confusion and his naming is adequate. NECK: Supple. NEUROLOGIC: His pupils are equal and reactive. Visual lee appear intact. His face appears symmetric. There is a left drift with decreased left rapid alternating movements. Right lower extremity is antigravity. Left lower extremity, patient will not volitionally move, although nurse indicates that he toe taps. Reflexes are diffusely mildly brisk. Toes are downgoing. Cerebellar function was normal on the right upper extremity. The patient did not understand the command in the left upper extremity. IMPRESSION: This patient has presented with an encephalopathy. He has multifocal numerous abscesses, the largest one of which is in the left temporal lobe where there is mild mass effect. The patient has mild ongoing encephalopathy as well as some suggestion of left upper extremity weakness. PLAN: Instead of lumbar puncture, recommend consultation with orthopedics to see if they can obtain a specimen for culture. We will follow the patient clinically and repeat an MRI if clinically stable, probably in about a week with and without contrast. I would like the patient to have an EEG sometime next week as he was found down with some acute confusion, which improved at least somewhat. This may suggest seizure. A total of 40 minutes was spent coordinating care in this patient.
--- NOTE | 2020-05-17 16:13 | Hospitalist Progress Note ---
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 Echo showed mild concentric left ventricular hypertrophy. No left ventricle wall motion abnormality. No vegetation noted. Ejection fraction 55 to 60%. Rate improved Continue monitor in tele Altered mental status MRI head with contrast showed numerous (greater than 10) ring-enhancing parenchymal lesions as above with significant surrounding edema. These lesions show markedly restricted diffusion, and the appearance strongly favors numerous abscesses, possibly related to septic emboli. no hemorrhage, midline shift, or restricted diffusion typical for acute territorial ischemia. Neurology on board No focal neuro deficit to suggest acute CVA ESR elevated ECHO showed no shunting and vegetation Case discussed with ID [facility] in [place] that recommended to get an LP since pt is immunocompromised that make the differential broad Will need to send fluid for Toxoplasma PCR, Cryptococcus, protein , cell count, glucose, AFB and Fungal culture, and oll the other regular CSF markers Case discussed with Neuro that plan to get the LP tomorrow Will hold on antibiotic for now, but if pt becomes toxic, ID recommended Cefepime, Metronidazole and Vanco SURGICAL NURSE dose Collected plasma Toxoplasma IGG and Cryptococcal antigen - pending Neuro tried to get the LP done yesterday, but due to pain in his L hip, he was not able to sit to get the LP. Neuro will attempt later if pain control Neuro was planning for LP today, but after the result of the hip MRI, that showed buttock abscess, left joint hip septic, decided not to proceed and recommended to see if ortho can obtain specimen for culture. Will need to follow with neuro and will need a repeat MRI head and EEG in a week Clinically improves ANCA Vasculitis S/P plasmapheresis Renal transplant Creatinine stable at 0.[address] 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 He will be seen with the transfer team. Dr. 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 Mild associated cortical buckling is suspicious for an associated age- indeterminate pathologic fracture. Primary differential considerations would include lytic metastasis versus plasmacytoma. Ortho on board L hip MRI with contrast showed an approximately 9 cm fluid collection in the medial left buttock consistent with abscess. evidence of osteomyelitis with asso ciated pathologic fracture involving the left posterior acetabulum. Myositis of the left gluteal musculature with an approximately 4 x 2 cm abscess within the gluteus minimus along the posterior aspect of the acetabulum.Bilateral hip joint effusions with a septic left hip. There is significant myositis involving the left thigh and adductor musculature consistent with myositis. There is surrounding deep soft tissue fluid. Correlate clinically for evidence of associated fasciitis. Edema and a tiny abscess is also identified within the right obturator internus muscle. Case discussed with ortho that recommended surgical eval since pt will need extensive procedures and since pt has recent transplant and would need to manage at a transplant center Case discussed with surgery in [place] Dr. Guerra that accepted the patient on transfer Will hold on abx for now since pt is afebrile and no leukocytosis and plan to transfer to [facility] Left Gluteal Left Buttock Abscess see above Case discussed with Surgery in [place] Dr. Guerra who accepted the patient for transfer Will need long course of IV abx No abx was started (Discussed with Dr. Ortiz couple days ago) since we wanted to get an LP for the brain abscess and pt was afebrile and no leukocytosis Will need to consult ID in [place] Mild rhabdomyolysis secondary to fall CK 421 on admission Received IVF, CK normalized DM type 2 Last Hba1c 8.4 on 03/04 PO diabetes med on hold Continue insulin sliding scale Elevated WBC WBC on admission 12K, now normalized need to look for any infection source such as brain abscess, Hip etiology Blood cx no growth and procalcitonin normal Continue to hold on abx for now DVT px on heparin subq that was held for the LP CODE STATUS FULL CODE Disposition Sister/POA, Ms. Breann Bowers was notified She requests updates from providers through [phone]. Admission and Anticipated Discharge Date Admission Date: May 14, 2020 Subjective Pt was seen and examined for follow up on Left hip pain and possible brain abscess Lying in bed with no distress Pt said that pain is better with the pain med He has tenderness when he tried to lift his left leg I spoke to Sister Breann Morris over the phone and provided with update Sister informed that patient will be transferred to [facility] for further eval. She will notify the other siblings Pt denies any chest pain, palpitation, dizziness and SOB Physical Exam Physical Exam: General- No acute distress Head- atraumatic Eyes- PERRL, EOMI, ENT- oropharynx clear Neck- supple, no JVD Lungs- clear to auscultation Heart- irregular rhythm, +tachycardia Abdomen- normal bowel sounds, soft, nontender Extremities- no calf tenderness, Left hip pain with movement Neuro- alert, oriented x 3; PERRL, EOMI; no facial palsy; no dysarthria Skin- warm & dry Results & Data Results & Data ([facility]) Vital Signs (Past 12 Hours) Vital Signs Temp Pulse Resp BP Pulse Ox 05/17/20 11:45 36.9 C 95 H 18 138/87 97 05/17/20 07:48 36.8 C 93 H 18 135/84 97 05/17/20 06:06 36.6 C 91 H 18 144/87 H 93 (1) Atrial fibrillation Atrial fibrillation type: permanent Qualified Code(s): I48.21 - Permanent atrial fibrillation
[2020-05-17 16:26] VITALS: BP 127/72; TEMP 97.9; O2SAT 98
--- NOTE | 2020-05-17 17:14 | Discharge Summary ---
Date of Service May 17, 2020 Admission HPI Per Admitting Provider History obtained from patient, family, and records. Medical history significant for chronic diastolic heart failure (EF 55 to 59%, TTE 2019), A. fib not on Coumadin secondary to history bleeding as per records, nonobstructive CAD as per records, hypertension, hyperlipidemia, ANCA vasculitis status post plasmapheresis, ESRD status post renal transplant on immunosuppression/antibiotic and antiviral regimen, hyperparathyroidism as per records, chronic anemia (baseline hemoglobin 10-11), COPD/pulmonary hypertension as per records, past tobacco abuse, history of pancreatic cyst, hx HCV, DM2 on oral medications, possible dementia as per family. Last confinement January 2018 for decompensated heart failure. Patient underwent renal transplant at [facility] last December 2019. Some confusion noted after recovery. Help needed with activities of daily living as per sister. Patient family worried about dementia given family history. Patient complaining of intermittent achy left hip pain symptoms per family the last 2 weeks. 2 days ago, patient family noted change in patient functionality at home where patient resides by himself.. Not able to take medications prepared for him. Patient found by sister on the ground at home today, covered with feces. Mentation at baseline as per sister. Intermittent left hip complaints as per EMS account. Patient denies chest pain, S OB, headache, syncope. Patient does not recall how he fell down. Patient noted to be in rapid A. fib upon arrival at the ER. 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 Recommend follow-up MRCP/abdominal MRI in 6 months to document stability and for continued surveillance. New and increased light lower lobe wedge-shaped opacities, differentials include nodular atelectasis, bacterial pneumonia, sequelae of infarct, organizing pneumonia. Follow-up MRI pancreas recommended by [facility] 10/2020. CT chest April 2020: To moderate size regions of consolidation right lower lobe and nodule right apex in conjunction with right hilar adenopathy and mild mediastinal adenopathy. Mild splenomegaly. Lymphoma is of main concern. Differential can include organizing pneumonia, cryptogenic or secondary, or sequela of vasculitis. 2018 colonoscopy small multiple diverticula, nonbleeding internal hemorrhoids. Surgical History : Kidney transplant, laparoscopy Family History : Dementia, DM, lung cancer Personal/Social history : Past tobacco abuse, no EtOH intake, retired [employer] employee Admission Exam Per Admitting Provider GENERAL: Disoriented, no respiratory distress SKIN: Pallor, warm HEENT: Bespectacled, pale palpebral conjunctivae, no ptosis, dry buccal mucosa NECK : Supple, no tenderness CHEST : CTA, no tenderness HEART : Irregular, tachycardic, no obvious murmurs ABDOMEN: Some distention, nontender EXTREMITIES : No LE swelling, left hip tenderness, no other conspicuous deformities noted NEUROLOGIC : Disoriented, no facial asymmetry, gait and stance not assessed Principal Diagnosis Atrial fibrillation: Altered mental status ANCA Vasculitis Renal transplant Left hip pain Left Hip septic Possible Left Acetabulum osteomyelitis S/P fall Left Gluteal Left Buttock Abscess DM type 2 Discharge Exam General- No acute distress Head- atraumatic Eyes- PERRL, EOMI, ENT- oropharynx clear Neck- supple, no JVD Lungs- clear to auscultation Heart- irregular rhythm, +tachycardia Abdomen- normal bowel sounds, soft, nontender Extremities- no calf tenderness, Left hip pain with movement Neuro- alert, oriented x 3; PERRL, EOMI; no facial palsy; no dysarthria Skin- warm & dry Discharge Data Allergies Allergy/AdvReac Type Severity Reaction Status Date / Time oxycodone Allergy Intermediate HIVES Verified 05/14/20 23:26 Consultations 05/14/20 20:56 ED Decision to Admit Stat 05/15/20 00:44 Consult Orthopedic Surgery Routine 05/15/20 01:14 Consult Case Management - Discharge Planning Routine 05/15/20 01:22 Consult Neurology Routine 05/15/20 09:30 Consult Cardiology Routine 05/15/20 19:31 Consult Infectious Diseases Routine Ordered Studies 05/14/20 18:05 CT cervical spine wo con Stat CT head/brain wo con Stat CT hip LT wo con Stat 05/14/20 22:46 MR brain wo con Urgent 05/14/20 22:47 MR angio head wo con Urgent 05/15/20 08:00 US carotid doppler BI Routine 05/15/20 12:28 MR brain wo/w con Routine 05/17/20 09:00 MR hip LT wo/w con Routine 05/18/20 08:00 CT head/brain wo con Routine MRI OF THE LEFT HIP COMBO CLINICAL HISTORY: Left hip pain. Abnormal CT. COMPARISON STUDY: CT scan of the left hip dated 05/14/2020. TECHNIQUE: MRI of the left hip is performed utilizing various T1 and T2-weighted sequences in the axial, sagittal, coronal planes. Contrast-enhanced sequences are acquired following the IV administration of 7.5 cc of Gadavist. FINDINGS: There is marrow edema identified within the posterior aspect of the left acetabulum, corresponding to the abnormality seen on the recent CT scan. There is drop in signal on the T1-weighted sequences with associated abnormal postcontrast enhancement. There is likely pathologic fracture. Cortical destruction is again noted and the appearance is typical for osteomyelitis. Normal marrow signal intensity is preserved throughout the remainder of the bony structures. Specifically, there is no marrow abnormality within the left proximal femur. There is no evidence of avascular necrosis of the femoral heads. There are bilateral hip joint effusions. There is associated synovial enhancement on the left, and the appearance is consistent with a septic hip. No synovial enhancement is seen on the right. There is generalized atrophy of the regional musculature. There is extensive intramuscular edema identified within the left gluteal musculature. There is a multiloculated fluid collection within the left gluteus minimus muscle seen on axial image #11. This abuts the posterior acetabulum and measures approximately 4 x 2 cm. This is consistent with an abscess. There is also significant intramuscular edema and nonspecific enhancement throughout the left adductor musculature as well as the left tensor fascia latae muscle consistent with myositis. There is surrounding deep soft tissue fluid. There is focal edema with a 9 mm round focus of abnormal enhancement within the right obturator internus muscle seen on axial image #15. This is also consistent with infection. There is a large complex, thick-walled, and peripherally enhancing fluid collection identified in the inferior left buttock along the gluteal crease at and below the level of the perianal soft tissues. This causes mild mass effect on the base of the penis and measures 7.7 x 8.9 x 5.2 cm. This is consistent with abscess. The prostate gland is enlarged and heterogeneous noting median lobe hypertrophy. The bladder wall is thickened and trabeculated indicating chronic outlet obstruction. Small foci of intraluminal gas are likely related to recent instrumentation. The seminal vesicles are normal as imaged. The visualized bowel loops are normal in caliber. A right pelvic renal transplant is noted. There is no hydronephrosis. No pelvic sidewall or inguinal adenopathy is seen. The origin of the hamstrings tendon is intact. IMPRESSION: 1. There is an approximately 9 cm fluid collection in the medial left buttock consistent with abscess. 2. There is evidence of osteomyelitis with associated pathologic fracture involving the left posterior acetabulum. This corresponds to the abnormality is seen on the recent CT scan. 3. No additional foci of similar appearing marrow abnormality are identified throughout the hips or bony pelvis. Specifically, there is no marrow abnormality within the left proximal femur. 4. There is myositis of the left gluteal musculature with an approximately 4 x 2 cm abscess within the gluteus minimus along the posterior aspect of the acetabulum. 4. Bilateral hip joint effusions with a septic left hip. 5. There is significant myositis involving the left thigh and adductor musculature consistent with myositis. There is surrounding deep soft tissue fluid. Correlate clinically for evidence of associated fasciitis. 6. Edema and a tiny abscess is also identified within the right obturator internus muscle. Electronically signed by: Deric Martino M.D. 05/17/2020 10:57 AM Dictated: 05/17/20 1037Transcribed: 05/17/20 1037 MRI OF THE BRAIN COMBO CLINICAL HISTORY: Follow-up abnormal MRI of the brain. COMPARISON STUDY: Unenhanced MRI of the brain and CT of the brain dated 05/14/2020. TECHNIQUE: MRI of the brain was performed utilizing various T1 and T2-weighted sequences in the axial, sagittal, and coronal planes. Contrast-enhanced sequences were acquired following the administration of 7.5 cc of Gadavist. FINDINGS: Brain parenchyma: There is age-related involutional change noting moderate confluent subcortical and periventricular microangiopathic disease. There is no evidence of hemorrhage. There is no restricted diffusion typical for acute ischemia. There are numerous (greater than 10) ring-enhancing parenchymal lesions identified. The largest lesion is present in the left occipital cortex and measures up to 1.5 cm. There is significant surrounding edema, and these lesions show markedly restricted diffusion. Additional clustered lesions are seen within the supraventricular white matter bilaterally. Smaller lesions are seen within the high right parietal cortex, the right temporal lobe, the high right frontal cortex, the kierra, and the left cerebral hemisphere. No midline shift is identified. No extra-axial fluid collection is seen. The cerebellar tonsils are normal in configuration. Ventricles, sulci, and cisterns: Prominent secondary to involutional change. Pituitary and sella: Unremarkable. Intracranial vasculature: Normal flow voids are maintained at the skull base. Orbits: The bony orbits are grossly intact. Orbital contents are normal in appearance. Sinuses and mastoids: Moderate mucosal thickening is noted in the sphenoid sinuses. The remaining paranasal sinuses are clear, as are the mastoid air cells. Calvarium: Unremarkable. Cervical cord: Partially visualized cervical spinal cord is normal in morphology and signal intensity. IMPRESSION: 1. There are numerous (greater than 10) ring-enhancing parenchymal lesions as above with significant surrounding edema. These lesions show markedly restricted diffusion, and the appearance strongly favors numerous abscesses, possibly related to septic emboli. Metastatic disease is a differential consideration but considered less likely. Clinical correlation will be essential. 2. There is no hemorrhage, midline shift, or restricted diffusion typical for acute territorial ischemia. ACT 112: Negative or not required by law. Electronically signed by: Deric Martino M.D. 05/15/2020 2:52 PM Dictated: 05/15/20 1432Transcribed: 05/15/20 1432 ULTRASOUND OF THE CAROTID ARTERIES CLINICAL HISTORY: Change in mental status. COMPARISON STUDY: Carotid artery ultrasound dated 06/16/2010. TECHNIQUE: Real-time, grayscale, and color Doppler sonography of the carotid arteries is performed. Images are reviewed in the transverse and longitudinal planes. FINDINGS: Blood pressures were not assessed due to limb restrictions. The carotid arteries are patent bilaterally and demonstrate antegrade flow. There is minimal atherosclerotic plaque seen in the carotid bulbs. Normal doppler arterial waveforms are seen throughout. Velocity measurements are listed below. Common carotid peak systolic velocity (cm/sec): RIGHT: 68 LEFT: 52 ICA proximal peak systolic velocity (cm/sec): RIGHT: 28 LEFT: 32 ICA mid peak systolic velocity (cm/sec): RIGHT: 36 LEFT: 31 ICA distal peak systolic velocity (cm/sec): RIGHT: 37 LEFT: 27 ICA/CC peak systolic ratio: RIGHT: 0.5 LEFT: 0.6 Antegrade flow was shown in the vertebral arteries. The external carotid arteries are patent. IMPRESSION: 1. There is no sonographic evidence of hemodynamically significant stenosis in the right or left carotid arterial system. 2. Antegrade flow is shown in the vertebral arteries. ACT 112: Negative or not required by law. Electronically signed by: Deric Martino M.D. 05/15/2020 7:00 PM Dictated: 05/15/201852Transcribed: 05/15/201852 Brain MRA HISTORY: Abnormal head CT. Altered mental status. TECHNIQUE: 3-D [id number] MRA of the brain was performed without contrast. COMPARISON STUDY: None. FINDINGS: Scattered areas of symmetric diminished perfusion is likely due to motion artifact. Otherwise the intracranial internal carotid arteries, distal vertebral arteries, and basilar artery are widely patent. There is no significant stenosis, occlusion, or aneurysm seen within the bilateral ACAs, MCAs, or lime hide inspector. IMPRESSION: No significant stenosis, occlusion, or aneurysm within the [place] of [place]. ACT 112: Negative or not required by law. Electronically signed by: Cristopher Silveira M.D. 05/15/2020 7:19 AM Dictated: 05/15/20716Transcribed: 05/15/20716 MRI OF THE BRAIN WITHOUT CONTRAST CLINICAL HISTORY: Abnormal head CT. Recent fall. COMPARISON STUDY: MRI of the brain June 10, 2010. Head CT May 14, 2020. TECHNIQUE: Utilizing a 1.5 Sasha magnet and dedicated coil, multiplanar, multiecho imaging of the brain was performed without IV contrast. FINDINGS: Note is made of numerous small foci of restricted diffusion. The largest is within the left temporooccipital region. Note is made of corresponding cystic appearing foci that measure up to 1.1 cm. These are predominantly T2 hyperintense. There is moderate associated vasogenic edema. This corresponds to the finding on head CT performed earlier today. Ventricular dilatation is likely due to atrophy. Basal cisterns are patent. There are no extra axial collections. Note is made of an indeterminate 1.1 cm T2 hyperintense focus within the left aspect of the brainstem extending into the cerebellar peduncle. Calvarial signal is normal. Mild sphenoid sinus mucosal thickening is noted. Orbits are unremarkable. There is moderate atrophy. IMPRESSION: Numerous small foci of restricted diffusion, the largest of which is within the left temporooccipital region with moderate associated vasogenic edema. This corresponds to the finding on head CT. Associated restricted diffusion. The appearance is nonspecific however an infectious process with multiple abscesses is favored given restricted diffusion. Acute to subacute embolic infarcts could appear similar. Metastatic disease is also within the differential but considered less likely. A follow-up contrast-enhanced MRI of the brain is recommended. This finding will be called/faxed to the ordering provider at time of dictation. ACT 112: Negative or not required by law. Electronically signed by: Jorge Mckee M.D. 05/15/2020 7:36 AM Dictated: 05/15/20721Transcribed: 05/15/20734 CT hip LT wo con HISTORY: 69 years-old Male fall acute left-sided hip pain status post fall COMPARISON: None TECHNIQUE: Multiple axial CT images of the left hip were obtained without the use of IV contrast. A dose lowering technique was used consistent with the principals of ALARA. FINDINGS: A Rain catheter is noted within a decompressed urinary bladder. Prostamegaly. No acute process of the imaged intrapelvic structures. There is mild to moderate left hip osteoarthritis. Ill-defined infiltrative lytic process with associated cortical indistinctness/erosions involve the posterior acetabulum measuring up to 2.5 cm in length, nicely seen on image 114 series 2 and image 48 series 201. There is mild associated cortical buckling of the posterior cortex which is best seen on coronal image 73. No acute fracture or dislocation of the left femur. No avascular necrosis. Small left hip joint effusion. IMPRESSION: 1. No acute posttraumatic fracture or dislocation of the left hip. 2. Ill-defined infiltrative lytic process with associated cortical thinning and erosions involves the posterior acetabulum measuring up to 2.5 cm in length. Mild associated cortical buckling is suspicious for an associated age- indeterminate pathologic fracture. Primary differential considerations would include lytic metastasis versus plasmacytoma. 3. Small left hip joint effusion. ACT 112: Negative or not required by law. The above report was generated using voice recognition software. It may contain grammatical, syntax or spelling errors. Electronically signed by: Alcides Gray M.D. 05/14/2020 8:32 PM Dictated: 05/14/202021Transcribed: 05/14/202021 CT head/brain wo con CLINICAL HISTORY: 69 years-old Male with fall. Acute head injury status post fall TECHNIQUE: Multiple axial CT images of the head were obtained without contrast. A dose lowering technique was utilized adhering to the principles of ALARA. CT DOSE: 1117.38 mGy.cm COMPARISON: CT cervical spine of same day, head CT 08/06/2017 FINDINGS: No acute intracranial hemorrhage, midline shift, intracranial mass, hydrocephalus, territorial ischemia or abnormal extra-axial collection. Age- related involutional changes. White matter hypodensities redemonstrated suggestive of chronic microvascular ischemic disease. Ill-defined periventricular hypodensity measuring approximately 4.3 cm involves the left temporo-occipital distribution on image 11 series 2 which is new from prior. Remote infarct of the right frontal lobe. Unchanged 8 mm calcification abutting the falx cerebri. The calvarium is intact. The paranasal sinuses, mastoid air cells, and middle ear cavities are clear. IMPRESSION: 1. No acute posttraumatic intracranial abnormality or acute calvarial fracture. 2. Age-related involutional changes with chronic microvascular ischemic disease. 3. There is an ill-defined hypodensity of the periventricular left temporal occipital lobe which is new from 08/06/2017. This may simply reflect an area of progressive white matter disease, however a subacute infarct could appear s imilarly. ACT 112: Negative or not required by law. The above report was generated using voice recognition software. It may contain grammatical, syntax or spelling errors. Electronically signed by: Alcides Gray M.D. 05/14/2020 8:16 PM Dictated: 05/14/202011Transcribed: 05/14/202011 XR chest 1V portable HISTORY: 69 years-old Male weakness acute weakness. COMPARISON: Acute abdominal series radiographs 02/03/2018 TECHNIQUE: Portable supine AP view of the chest FINDINGS: Cardiomegaly. Calcified plaque of the thoracic aorta. Mild linear scarring/atelectasis of the right lung base. No pneumothorax, pleural effusion, airspace consolidation or overt pulmonary edema. Degenerative changes of the shoulders and spine. IMPRESSION: No acute process. ACT 112: Negative or not required by law. The above report was generated using voice recognition software. It may contain grammatical, syntax or spelling errors. Electronically signed by: Alcides Gray M.D. 05/14/2020 6:54 PM Dictated: 05/14/201852Transcribed: 05/14/201852 CT cervical spine wo con CLINICAL HISTORY: 69 years-old Male with fall trauma. Acute head and neck injury status post fall COMPARISON: Head CT of same day TECHNIQUE: Multiple axial CT images of the cervical spine were obtained without contrast. A dose lowering technique was utilized adhering to the principles of ALARA. FINDINGS: Mild multilevel intervertebral disc space narrowing with moderate spondylitic spurring and facet arthrosis. There is no acute fracture or subluxation. Evaluation of the central canal and neuroforamina is better assessed by MRI. Note is made of multilevel foraminal narrowing. Ill-defined sclerosis involving the left mandibular body is suggestive of osteitis. Mastoid air cells are clear. Partially imaged nodular densities of the right lung apex measuring up to 4 mm. There is no pneumothorax. No prevertebral edema. Multinodular thyroid. IMPRESSION: 1. No acute cervical spine fracture or subluxation. 2. Clustered tiny nodules of the right lung apex measuring up to 4 mm favor an infectious or inflammatory process. 3. Multinodular goiter. ACT 112: Negative or not required by law. The above report was generated using voice recognition software. It may contain grammatical, syntax or spelling errors. Electronically signed by: Alcides Gray M.D. 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 Echo showed mild concentric left ventricular hypertrophy. No left ventricle wall motion abnormality. No vegetation noted. Ejection fraction 55 to 60%. Rate improved Continue monitor in tele Altered mental status MRI head with contrast showed numerous (greater than 10) ring-enhancing parenchymal lesions as above with significant surrounding edema. These lesions show markedly restricted diffusion, and the appearance strongly favors numerous abscesses, possibly related to septic emboli. no hemorrhage, midline shift, or restricted diffusion typical for acute territorial ischemia. 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 Neuro will attempt later if pain control Neuro was planning for LP today, but after the result of the hip MRI, that showed buttock abscess, left joint hip septic, decided not to proceed and recommended to see if ortho can obtain specimen for culture. Will need to consult neuro in [place] for the ring enhancing lesion and edema. No steroid given, will defer to Neuro Clinically improves ANCA Vasculitis S/P plasmapheresis Renal transplant Creatinine stable at 0.[address] Rashid and pt renal nursing coordinator that ok with the MRI contrast Continue Tacrolimus and Mycophenolate and prednisone policy service coordinator said that the progaft that was planning to start today, it can be started once discharge as outpatient, but admitting was already starting it Pt will be transferred to [facility]. He will be seen with the transfer team. Dr. 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 Mild associated cortical buckling is suspicious for an associated age- indeterminate pathologic fracture. Primary differential considerations would include lytic metastasis versus plasmacytoma. Ortho on board L hip MRI with contrast showed an approximately 9 cm fluid collection in the medial left buttock consistent with abscess. evidence of osteomyelitis with associated pathologic fracture involving the left posterior acetabulum. Myositis of the left gluteal musculature with an approximately 4 x 2 cm abscess within the gluteus minimus along the posterior aspect of the acetabulum.Bilateral hip joint effusions with a septic left hip. There is significant myositis involving the left thigh and adductor musculature consistent with myositis. There is surrounding deep soft tissue fluid. Correlate clinically for evidence of associated fasciitis. Edema and a tiny abscess is also identified within the right obturator internus muscle. Case discussed with ortho that recommended surgical eval since pt will need extensive procedures and since pt has recent transplant and would need to manage at a transplant center Case discussed with surgery in [place] Dr. Guerra that accepted the patient on transfer Will hold on abx for now since pt is afebrile and no leukocytosis and plan to transfer to [facility] Left Gluteal Left Buttock Abscess see above Case discussed with Surgery in [place] Dr. Guerra who accepted the patient for transfer Will need long course of IV abx No abx was started (Discussed with Dr. Ortiz couple days ago) since we wanted to get an LP for the brain abscess and pt was afebrile and no leukocytosis Will need to consult ID in [place] Mild rhabdomyolysis secondary to fall CK 421 on admission Received IVF, CK normalized DM type 2 Last Hba1c 8.4 on 03/04 PO diabetes med on hold Continue insulin sliding scale Continue monitor BS Elevated WBC WBC on admission 12K, now normalized need to look for any infection source such as brain abscess, Hip etiology Blood cx no growth and procalcitonin normal No on any abx DVT px on heparin subq that was held for the LP CODE STATUS FULL CODE Disposition Transfer to [facility], Accepted physician Dr. Guerra (Surgery) Sister/POA, Ms. Breann Bowers was notified She requests updates from providers through [phone]. Total Time Total Time Spent Total Time Spent (In Minutes): 45 minutes Total Time Includes: Examination of the Patient, Discharge Planning, Medication Reconciliation, Communication With Other Providers and Other Discharge Plan Discharge Items Patient Disposition: Transfer Acute Care Hospital Reason For Visit: RAPID AF Discharge Diagnosis: Atrial fibrillation: Altered mental status ANCA Vasculitis Left hip pain Left Buttock/Gluteal abscess DM type 2 Activity: Resume your previous activity Non-emergency contact: Primary Care Provider, Surgeon and Neurologist Call non-emergency contact if: you have any medication questions Follow-up/Referrals: Donal Farrell MD [Primary Care Provider] - Diet: Carb Consistent or DM2 Addtl Attending Provider Instructions: Transfer to [facility] Accepted physician Dr. Guerra from the surgery team Please consult Neurology and Infectious disease and orthopedic radiology department pushed the imaging that [facility] providers can review them Pending Studies at Discharge: Yes Studies:: Plasma Toxoplasma and Cryptococcus Stand-Alone Forms: [facility] Skilled Items Patient informed of condition?: Yes DNR: No Discharge Level of Care: Other Communicable Disease: No Discharge Prognosis: Stable Lines: Peripheral IV Urinary Catheter: Yes Medications and DC Order Prescriptions: Continued ferrous sulfate [Feosol] 325 mg (65 mg iron) Tablet 325 mg PO QAM RF: 0 carvedilol 25 mg Tablet 25 mg PO BID RF: 0 diltiazem HCl [Cartia XT] 240 mg capsule,extended release 24hr 240 mg PO DAILY RF: 0 glipizide 5 mg tablet 5 mg PO QAM RF: 0 aspirin 81 mg Tablet,Chewable 81 mg PO DAILY RF: 0 mycophenolate mofetil 250 mg capsule 500 mg PO BID RF: 0 omeprazole 20 mg capsule,delayed release(DR/EC) 20 mg PO DAILY RF: 0 valganciclovir 450 mg tablet 450 mg PO DAILY RF: 0 tacrolimus 0.5 mg capsule 1 mg PO AMPM RF: 0 albuterol sulfate 90 mcg/actuation HFA aerosol inhaler 2 inha INH Q4 PRN (Reason: Wheezing) RF: 0 rosuvastatin 5 mg tablet 5 mg PO DAILY RF: 0 Trelegy Ellipta 100-62.5-25 mcg Blister With Device 1 inh INHALATION DAILY RF: 0 Ozempic 0.25 mg or 0.5 mg(2 mg/1.5 mL) Pen Injector 1 mg SUBCUT WK RF: 0 prednisone 5 mg Tablet 5 mg PO BID RF: 0 sulfamethoxazole-trimethoprim [Bactrim] 400-80 mg Tablet 1 tab PO 3XWK RF: 0 Discharge Orders: Discharge Order (Routine); Ordered 05/17/20 Ordered By: Breana Mitchell Admission Data Admit Date/Time: 05/14/20 22:13 Attending Provider: Breana Mitchell Admit Provider: Idris Raines Primary Care Provider: Donal Farrell Other Providers: Idris Raines ; Manuel Hatch ; Rory Mitchell ; Margarito Grey ; Nuria Ness Thomas J ; Daisha Montelongo ; Dez Billy ; Donal Bernardo ; Brian Alexander ; Donal Bailey Andrew J. ; Brian Apple ; Daryl Minaya ; Eugene Albarran ; Ron Flores ; Kaleb Grissom ; Brett Sierra ; Daisha Benítez ; Neel Tinsley ; Dave Chirinos ; Susan Jimenez ; Joseph Recio ; Maddie Victoria ; Huong Gracia ; Joseph Zapien ; Huong Poe ; Uriah Gonzales ; Saroj Thakkar ; Casey Coon ; Jonatan Sanchez ; Taiwo Cyr I. ; Jay Jay Ortiz II ; Rosa M Zaman ; Donal Paredes
[2020-05-17] MEDS: INSULIN GLARGINE SOLOSTAR 100 UNITS/ML 3 ML PEN SC SCH (20:05)
[2020-05-17] MEDS ORDERED: TERAZOSIN HCL 1 MG CAP PO SCH (21:00)
[2020-05-17 22:56] VITALS: PULSE 98
== END 2020-05-17 22:00 | disposition short-term general hospital (02) | DRG 94 ==
LOC: ED 17:41 → 2S 22:13